=== PATIENT | male | born 1940 | race Caucasian/White ===

== ENCOUNTER 2017-06-27 09:49 | Inpatient (IN) | payer MEDICARE, BC ==
[2017-06-27] MEDS ORDERED: MAGNESIUM SULFATE-D5W PMX 1 GM in DEXTROSE/WATER 1 100ML.BAG IVPB STA (10:10)
[2017-06-27] MEDS ORDERED: IPRATROPIUM-ALBUTEROL 3 ML NEB INHALATION STA (10:10)
[2017-06-27] MEDS ORDERED: methylPREDNISolone SOD SUCCI 125 MG/2 ML VIAL IV STA (10:10)
[2017-06-27] MEDS ORDERED: SODIUM CHLORIDE 0.9% 1,000 ML IV STA (10:10)
--- NOTE | 2017-06-27 10:30 | ED ---
Weakness HPI - General Chief complaint: Weakness Stated complaint: Weakness/SOB Time Seen by Provider: 06/27/17 10:01 Source: patient, family, RN notes reviewed Mode of arrival: wheelchair Limitations: no limitations - History of Present Illness Initial comments: This is a 76-year-old male with a history of vomiting fibrosis who presents with complaints of generalized weakness is been chronic but especially bad over the last week and worse since last night. He has a cough with white phlegm was noted have a fever this morning he had chills no chest pain no nausea vomiting diarrhea he's had a good appetite up until yesterday no food since yesterday. No other modifying factors. He has been taking his medication as directed. MD Complaint: generalized weakness - Related Data Home Medications Medication Instructions Recorded Confirmed Acetaminophen/Diphenhydramine 1 tab PO HS 01/04/15 01/04/15 [Tylenol PM 500-25mg] Amoxicillin/Potassium Clav 1 tab PO Q12HR 01/04/15 01/04/15 [Augmentin 875-125 Tablet] Budesonide [Pulmicort] 0.25 mg INHALATION BID 01/04/15 01/04/15 Carvedilol [Coreg] 12.5 mg PO BID 01/04/15 01/04/15 Ciprofloxacin HCl [Cipro] 500 mg PO Q12HR 01/04/15 01/04/15 Levothyroxine Sodium [Synthroid] 150 mcg PO DAILY 01/04/15 01/04/15 Multivit-Min/FA/Lycopen/Lutein 1 each PO DAILY 01/04/15 01/04/15 [Centrum Silver Tablet] Simvastatin [Zocor] 40 mg PO HS 01/04/15 01/04/15 Tamsulosin [Flomax] 0.4 mg PO DAILY 01/04/15 01/04/15 Testosterone Cypionate 200 mg IM DIRECTED 01/04/15 01/04/15 [Depo-Testosterone] Zinc 50 mg PO DAILY 01/04/15 01/04/15 Previous Rx's Medication Instructions Recorded Ondansetron Odt [Zofran ODT] 4 mg PO Q8HR PRN #15 tab 01/04/15 Allergies Allergy/AdvReac Type Severity Reaction Status Date / Time DILLON Inhibitors Allergy Swelling Verified 06/27/17 10:22 Review of Systems ROS Statement: Those systems with pertinent positive or pertinent negative responses have been documented in the HPI. ROS Other: All systems not noted in ROS Statement are negative. Past Medical History Past Medical History: Asthma, CVA/TIA, Hearing Disorder / Deafness, Hyperlipidemia, Hypertension, Prostate Disorder, Thyroid Disorder Additional Past Medical History / Comment(s): deaf in right ear History of Any Multi-Drug Resistant Organisms: None Reported Past Surgical History: Appendectomy, Back Surgery, Hernia Repair, Orthopedic Surgery, Tonsillectomy Additional Past Surgical History / Comment(s): aortic aneursym repair x2, " leaky valve repair", eyelid surgery, cardiac cath, acoustic neuroma, laminectomy Past Psychological History: No Psychological Hx Reported Smoking Status: Former smoker Past Alcohol Use History: None Reported Past Drug Use History: None Reported General Exam - General Exam Comments Initial Comments: This is a well-developed asthenic appearing male who is awake alert oriented 3 Limitations: no limitations General appearance: alert, in no apparent distress Head exam: Present: atraumatic, normocephalic, normal inspection Eye exam: Present: normal appearance, PERRL, EOMI. Absent: scleral icterus, conjunctival injection, periorbital swelling ENT exam: Present: mucous membranes dry Neck exam: Present: normal inspection. Absent: tenderness, meningismus, lymphadenopathy Respiratory exam: Present: normal lung sounds bilaterally, wheezes, rhonchi, decreased breath sounds. Absent: respiratory distress, rales, stridor Cardiovascular Exam: Present: regular rate, normal rhythm, normal heart sounds. Absent: systolic murmur, diastolic murmur, rubs, gallop, clicks GI/Abdominal exam: Present: soft, normal bowel sounds. Absent: distended, tenderness, guarding, rebound, rigid Extremities exam: Present: normal inspection, full ROM, normal capillary refill. Absent: tenderness, pedal edema, joint swelling, calf tenderness Back exam: Present: normal inspection Neurological exam: Present: alert, oriented X3, CN II-XII intact Psychiatric exam: Present: normal affect, normal mood Skin exam: Present: warm, dry, intact, normal color. Absent: rash Course Vital Signs 06/27/17 06/27/17 06/27/17 09:53 10:30 10:42 Temperature 100.8 F H Pulse Rate 107 H 96 100 Respiratory 20 20 Rate Blood Pressure 143/72 134/81 O2 Sat by Pulse 85 L 91 L Oximetry 06/27/17 06/27/17 10:53 11:38 Temperature Pulse Rate 98 98 Respiratory 16 Rate Blood Pressure 123/79 O2 Sat by Pulse 92 L Oximetry - Reevaluation(s) Reevaluation #1: 06/27/17 12:37 The patient did get some relief after the nebulizer treatment. Reevaluation #2: 06/27/17 12:37 Patient states he has not smoked in 40 years he has not felt febrile at all EKG Findings - EKG Results: EKG: interpreted by ERMD, sinus rhythm (Sinus tachycardia rate of 102 MO interval 140 QRS duration 86 QT since QTC 320/427 left anterior fascicular block and voltage criteria for LVH this is compared with EKG dated 01/04/15.) Medical Decision Making - Medical Decision Making I did discuss findings with the patient and with Dr. Garica. Patient be admitted for further evaluation patient initially did not state he had any chest pain he states he has been having some chest pain. Patient does have elevated troponin of 0.233 evidence of congestive failure with a BNP of 5350 temperature 100.8 of unknown etiology. She will be admitted admitted with cardiology consultation. - Lab Data Result diagrams: 06/27/17 10:00 06/27/17 10:00 Lab Results 06/27/17 06/27/17 06/27/17 Range/Units 10:00 10:00 10:00 WBC 8.0 (3.8-10.6) k/uL RBC 4.32 (4.30-5.90) m/uL Hgb 13.5 (13.0-17.5) gm/dL Hct 40.7 (39.0-53.0) % MCV 94.2 (80.0-100.0) fL MCH 31.3 (25.0-35.0) pg MCHC 33.3 (31.0-37.0) g/dL RDW 17.6 H (11.5-15.5) % Plt Count 56 L (150-450) k/uL Neutrophils % 91 % Lymphocytes % 4 % Monocytes % 3 % Eosinophils % 2 % Basophils % 0 % Neutrophils # 7.3 (1.3-7.7) k/uL Lymphocytes # 0.3 L (1.0-4.8) k/uL Monocytes # 0.2 (0-1.0) k/uL Eosinophils # 0.1 (0-0.7) k/uL Basophils # 0.0 (0-0.2) k/uL Poikilocytosis Slight Anisocytosis Slight PT (9.0-12.0) sec INR (<1.2) APTT (22.0-30.0) sec Sodium 136 L (137-145) mmol/L Potassium 4.3 (3.5-5.1) mmol/L Chloride 101 (98-107) mmol/L Carbon Dioxide 27 (22-30) mmol/L Anion Gap 8 mmol/L BUN 27 H (9-20) mg/dL Creatinine 1.15 (0.66-1.25) mg/dL Est GFR (CKD-EPI)AfAm 73 (>60 ml/min/1.73 sqM) Est GFR (CKD-EPI)NonAf 63 (>60 ml/min/1.73 sqM) Glucose 87 (74-99) mg/dL Plasma Lactic Acid Giles (0.7-2.0) mmol/L Calcium 8.3 L (8.4-10.2) mg/dL Magnesium 1.7 (1.6-2.3) mg/dL Total Bilirubin 0.9 (0.2-1.3) mg/dL AST 64 H (17-59) U/L ALT 33 (21-72) U/L Alkaline Phosphatase 55 (38-126) U/L Total Creatine Kinase <20 L (55-170) U/L CK-MB (CK-2) 0.6 (0.0-2.4) ng/mL CK-MB (CK-2) Rel Index Troponin I 0.233 H* (0.000-0.034) ng/mL NT-Pro-B Natriuret Pep pg/mL Total Protein 5.5 L (6.3-8.2) g/dL Albumin 2.9 L (3.5-5.0) g/dL 06/27/17 06/27/17 06/27/17 Range/Units 10:00 10:00 10:00 WBC (3.8-10.6) k/uL RBC (4.30-5.90) m/uL Hgb (13.0-17.5) gm/dL Hct (39.0-53.0) % MCV (80.0-100.0) fL MCH (25.0-35.0) pg MCHC (31.0-37.0) g/dL RDW (11.5-15.5) % Plt Count (150-450) k/uL Neutrophils % % Lymphocytes % % Monocytes % % Eosinophils % % Basophils % % Neutrophils # (1.3-7.7) k/uL Lymphocytes # (1.0-4.8) k/uL Monocytes # (0-1.0) k/uL Eosinophils # (0-0.7) k/uL Basophils # (0-0.2) k/uL Poikilocytosis Anisocytosis PT 10.3 (9.0-12.0) sec INR 1.1 (<1.2) APTT 23.3 (22.0-30.0) sec Sodium (137-145) mmol/L Potassium (3.5-5.1) mmol/L Chloride (98-107) mmol/L Carbon Dioxide (22-30) mmol/L Anion Gap mmol/L BUN (9-20) mg/dL Creatinine (0.66-1.25) mg/dL Est GFR (CKD-EPI)AfAm (>60 ml/min/1.73 sqM) Est GFR (CKD-EPI)NonAf (>60 ml/min/1.73 sqM) Glucose (74-99) mg/dL Plasma Lactic Acid Giles 1.0 (0.7-2.0) mmol/L Calcium (8.4-10.2) mg/dL Magnesium (1.6-2.3) mg/dL Total Bilirubin (0.2-1.3) mg/dL AST (17-59) U/L ALT (21-72) U/L Alkaline Phosphatase (38-126) U/L Total Creatine Kinase (55-170) U/L CK-MB (CK-2) (0.0-2.4) ng/mL CK-MB (CK-2) Rel Index Troponin I (0.000-0.034) ng/mL NT-Pro-B Natriuret Pep 5350 pg/mL Total Protein (6.3-8.2) g/dL Albumin (3.5-5.0) g/dL - Radiology Data Radiology results: report reviewed (X-ray was reviewed as well as a report evidence of interstitial lung disease and emphysema), image reviewed Critical Care Time Critical Care Time: Yes Critical Care Time: 37 minutes of critical care time which includes initial presentation with history physical labs x-rays several reevaluation patient responsive therapy discuss with the patient regarding findings discussion with the admitting physician admission orders documentation the above as well as review of old charting. Disposition Clinical Impression: Non-ST elevation SC (NSTEMI), Congestive heart failure (CHF), Interstitial lung disease, Hypoxemia, Acute bronchospasm Disposition: ADMITTED IP TO THIS HOSP Condition: Stable Referrals: Malik Tate MD [Primary Care Provider] - 1-2 days
[2017-06-27 10:39] LABS: INR 1.1 (<1.2); Partial Thromboplastin Time 23.3 sec (22.0-30.0); Prothrombin Time 10.3 sec (9.0-12.0)
[2017-06-27 10:40] LABS: Anisocytosis Slight; Basophils % (A) 0 %; Eosinophils # (A) 0.1 k/uL (0-0.7); Eosinophils % (A) 2 %; HCT 40.7 % (39.0-53.0); HGB 13.5 gm/dL (13.0-17.5); Lymphocytes # (A) 0.3 k/uL (1.0-4.8); Lymphocytes % (A) 4 %; MCH 31.3 pg (25.0-35.0); MCHC 33.3 g/dL (31.0-37.0); MCV 94.2 fL (80.0-100.0); Mean Platelet Volume 8.6; Monocytes # (A) 0.2 k/uL (0-1.0); Monocytes % (A) 3 %; Neutrophils # (A) 7.3 k/uL (1.3-7.7); Neutrophils % (A) 91 %; Poikilocytosis Slight; RBC 4.32 m/uL (4.30-5.90); RDW 17.6 % (11.5-15.5)
[2017-06-27 10:42] LABS: Platelet Count 56 k/uL (150-450)
--- NOTE | 2017-06-27 10:42 | XR ---
EXAMINATION TYPE: XR chest 2V DATE OF EXAM: 06/27/2017 COMPARISON: Prior chest x-ray 08/20/2012 HISTORY: Difficulty breathing, dyspnea TECHNIQUE: Frontal and lateral views of the chest are obtained. FINDINGS: There are overlying cardiac leads. Interstitium is increased. Patient is rotated and there is accentuated heart size, stable in appearance. No pneumothorax or pleural effusion evident. Promin ent lung volume compatible with patient's underlying emphysema. Retrocardiac density is compatible wi th patient's hiatal hernia. IMPRESSION: Interstitial lung disease, emphysema.
[2017-06-27 10:46] LABS: Albumin 2.9 g/dL (3.5-5.0); Calcium 8.3 mg/dL (8.4-10.2); Magnesium 1.7 mg/dL (1.6-2.3); Potassium 4.3 mmol/L (3.5-5.1); Total Bilirubin 0.9 mg/dL (0.2-1.3); Total Protein 5.5 g/dL (6.3-8.2)
[2017-06-27 10:53] LABS: Creatine Kinase <20 U/L (55-170)
[2017-06-27 11:06] LABS: Creatine Kinase MB 0.6 ng/mL (0.0-2.4)
[2017-06-27 11:13] LABS: Troponin I 0.233 ng/mL (0.000-0.034)
[2017-06-27] MEDS ORDERED: FUROSEMIDE 10 MG/ML 4 ML VIAL IV STA (11:26)
[2017-06-27] MEDS ORDERED: NITROGLYCERIN SL TABS 0.4 MG TAB SUBLINGUAL PRN (12:40)
[2017-06-27] MEDS ORDERED: HEPARIN SODIUM,PORCINE 5,000 UNIT/ML 1 ML VIAL IV ONE (12:40)
[2017-06-27] MEDS ORDERED: ONDANSETRON ODT 4 MG TAB PO PRN (12:43)
[2017-06-27] MEDS: HEPARIN SODIUM,PORCINE/D5W PMX 25,000 UNIT in DEXTROSE/WATER 1 500ML.BAG IV SCH (13:12)
--- NOTE | 2017-06-27 13:39 | P.HPIM ---
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 The patient reports a history of a chronic cough that is now worse over the last 3 days with increasing shortness of breath, today in particular the patient was increasingly fatigued with exertion. The patient denied any chest pain today but does complain of nonexertional substernal chest discomfort 2-3 days ago which she attributed to acid reflux. The patient reports subjective fevers chills or night sweats, with a productive cough clear phlegm over the last 3 days. The patient denies any recent sick contacts, nor any recent history of smoking. He denies any palpitations or lower extremity swelling, denies presyncope. The patient does have a history of a leaky aortic valve and reports that he had a echocardiogram earlier this week, the results of which are unknown. The patient reports a recent diagnosis of ITP 3 months ago while in [place], requiring multiple transfusions and has been on systemic steroids since that time, he reports recently seeing his extruder operator horizontal Dr. Graham and reports that his prednisone dose was recently decreased to 20 mg by mouth daily. The patient also has a history of aortic graft with a bowel rupture causing peritonitis, he reports the graft was replaced however that he is currently on chronic prophylactic therapy with ciprofloxacin and amoxicillin. In the ER the patient had extensive workup, chest x-ray was consistent with interstitial lung disease and emphysema, with elevated BNP of 5350, and troponin of 0.233, EKG showing sinus rhythm. He was given a dose of Solu-Medrol , Lasix, nebulizer breathing treatments and started on heparin drip and was recommended for admission Past Medical History Past Medical History: Asthma, CVA/TIA, Hearing Disorder / Deafness, Hyperlipidemia, Hypertension, Prostate Disorder, Thyroid Disorder Additional Past Medical History / Comment(s): deaf in right ear History of Any Multi-Drug Resistant Organisms: None Reported Past Surgical History: Appendectomy, Back Surgery, Hernia Repair, Orthopedic Surgery, Tonsillectomy Additional Past Surgical History / Comment(s): aortic aneursym repair x2, " leaky valve repair", eyelid surgery, cardiac cath, acoustic neuroma, laminectomy Past Psychological History: No Psychological Hx Reported Smoking Status: Former smoker Past Alcohol Use History: None Reported Past Drug Use History: None Reported - Past Family History Father Family Medical History: CVA/TIA Sister(s) Family Medical History: Diabetes Mellitus Medications and Allergies Home Medications Medication Instructions Recorded Confirmed Type Amoxicillin/Potassium Clav 1 tab PO Q12HR 01/04/15 06/27/17 History [Augmentin 875-125 Tablet] Carvedilol [Coreg] 12.5 mg PO BID 01/04/15 06/27/17 History Ciprofloxacin HCl [Cipro] 500 mg PO Q12HR 01/04/15 06/27/17 History Levothyroxine Sodium [Synthroid] 150 mcg PO DAILY 01/04/15 06/27/17 History Simvastatin [Zocor] 40 mg PO HS 01/04/15 06/27/17 History Albuterol Sulfate [Proair Hfa] 1 - 2 puff INHALATION RT-Q6H PRN 06/27/17 History DULoxetine HCL [Cymbalta] 30 mg PO DAILY 06/27/17 06/27/17 History RX: predniSONE 20 mg PO DAILY 06/27/17 06/27/17 History Tiotropium [place] [Spiriva 1 puff INHALATION RT-DAILY 06/27/17 06/27/17 History Respimat] Allergies Allergy/AdvReac Type Severity Reaction Status Date / Time DILLON Inhibitors Allergy Swelling Verified 06/27/17 13:23 Physical Exam Vitals: Vital Signs Temp Pulse Resp BP Pulse Ox 06/27/17 12:50 99.2 F 90 18 126/76 92 L 06/27/17 11:38 98 16 123/79 92 L 06/27/17 10:53 98 06/27/17 10:42 100 06/27/17 10:30 96 20 134/81 91 L 06/27/17 09:53 100.8 F H 107 H 20 143/72 85 L Intake and Output 06/26/17 06/27/17 06/27/17 22:59 06:59 14:59 Output Total 675 Balance -675 Output: Urine 675 Other: Weight 63.503 kg Constitutional: No acute distress, conversant, pleasant Eyes: Anicteric sclerae, moist conjunctiva, no lid-lag, PERRLA ENMT: NC/AT,Oropharynx clear, no erythema, exudates Neck:Supple, FROM, no masses, or JVD, No carotid bruits; No thyromegaly Lungs: Bibasilar crackles, Clear to percussion, Normal respiratory effort, no accessory muscle use Cardiovascular: Heart regular in rate and rhythm, No murmurs, gallops, or rubs no peripheral edema Abdominal: Soft Nontender, nom distended, no guarding, no rebound or rigidity, Normoactive bowel sounds No hepatomegaly, No splenomegaly, No palpable mass No abdominal wall hernia noted Skin: Normal temperature, tone, texture, turgor, No induration No subcutaneous nodules, No rash, lesions, No ulcers Extremities:No digital cyanosis No clubbing, Pedal pulses intact and symmetrical Radial pulses intact and symmetrical Normal gait and station, No calf tenderness Psychiatric: Alert and oriented to person, place and time, Appropriate affect Intact judgement Neuro: Muscles Strength 5/5 in all 4 extremities, Sensation to light touch grossly present throughout, Cranial nerves II-XII grossly intact. No focal sensory deficits Results CBC & Chem 7: 06/27/17 10:00 06/27/17 10:00 Labs: Abnormal Lab Results - Last 24 Hours (Table) 06/27/17 06/27/17 06/27/17 Range/Units 10:00 10:00 10:00 RDW 17.6 H (11.5-15.5) % Plt Count 56 L (150-450) k/uL Lymphocytes # 0.3 L (1.0-4.8) k/uL D-Dimer (<0.60) mg/L FEU Sodium 136 L (137-145) mmol/L BUN 27 H (9-20) mg/dL Calcium 8.3 L (8.4-10.2) mg/dL AST 64 H (17-59) U/L Total Creatine Kinase <20 L (55-170) U/L Troponin I 0.233 H* (0.000-0.034) ng/mL Total Protein 5.5 L (6.3-8.2) g/dL Albumin 2.9 L (3.5-5.0) g/dL 06/27/17 Range/Units 10:00 RDW (11.5-15.5) % Plt Count (150-450) k/uL Lymphocytes # (1.0-4.8) k/uL D-Dimer 4.31 H (<0.60) mg/L FEU Sodium (137-145) mmol/L BUN (9-20) mg/dL Calcium (8.4-10.2) mg/dL AST (17-59) U/L Total Creatine Kinase (55-170) U/L Troponin I (0.000-0.034) ng/mL Total Protein (6.3-8.2) g/dL Albumin (3.5-5.0) g/dL Assessment and Plan Assessment: Chronic medical issues (1) Elevated troponin Current Visit: Yes Status: Acute Code(s): R74.8 - ABNORMAL LEVELS OF OTHER SERUM ENZYMES SNOMED Code(s): 762712085 (2) Dyspnea on exertion Current Visit: Yes Status: Acute Code(s): R06.09 - OTHER FORMS OF DYSPNEA SNOMED Code(s): 67973429 (3) Elevated brain natriuretic peptide (BNP) level Current Visit: Yes Status: Acute Code(s): R79.89 - OTHER SPECIFIED ABNORMAL FINDINGS OF BLOOD CHEMISTRY SNOMED Code(s): 335475637 (4) Interstitial lung disease Current Visit: Yes Status: Acute Code(s): J84.9 - INTERSTITIAL PULMONARY DISEASE, UNSPECIFIED SNOMED Code(s): 898181967 (5) COPD with emphysema Current Visit: Yes Status: Acute Code(s): J43.9 - EMPHYSEMA, UNSPECIFIED SNOMED Code(s): 61073041 (6) History of ITP Current Visit: Yes Status: Acute Code(s): Z86.2 - PRSNL HISTORY OF DIS [facility] Code(s): 756222738 Plan: The patient is admitted to the telemetry unit on 6 selective after presenting with progressive dyspnea and shortness of breath, possibly secondary to underlying CHF, patient does have a history of aortic valvulopathy and does have elevated initial troponin. Concern for underlying coronary artery disease , we'll continue to trend his troponins, will order echocardiogram, continue heparin drip initiated in the ED And consult cardiology. Patient does have a low-grade temperature without a focus of infection, will order a urinalysis and blood culture and consult ID for further recommendations given the patient's complicated history of chronic steroid therapy and ongoing prophylactic antibiotic use. We'll also consult pulmonary for further recommendations regarding the patient's interstitial lung disease and emphysema. Continue breathing treatments, Lasix IV and oral prednisone, D-dimer is been ordered and if elevated we'll order a CTA of the chest to rule out PE. We'll continue to follow the patient's clinical course
[2017-06-27] MEDS ORDERED: RX INFO: IV CONTRAST WAS GIVEN 1 EACH MISC MISCELLANE PRN (14:00)
[2017-06-27] MEDS ORDERED: IPRATROPIUM-ALBUTEROL 3 ML NEB INHALATION PRN (14:04)
[2017-06-27 14:16] LABS: Appearance,Urine Clear (Clear); Bilirubin,Urine Negative (Negative); Blood,Urine Negative (Negative); Color,Urine Colorless; Glucose,Urine (UA) Negative (Negative); Ketones,Urine Negative (Negative); Leukocyte Esterase,Urine Negative (Negative); Nitrite,Urine Negative (Negative); Protein,Urine Negative (Negative); Specific Gravity,Urine 1.004 (1.001-1.035); Urobilinogen,Urine <2.0 mg/dL (<2.0)
--- NOTE | 2017-06-27 15:28 | CT ---
EXAMINATION TYPE: CT chest angio for PE DATE OF EXAM: 06/27/2017 COMPARISON: Chest x-ray 06/27/2017 HISTORY: Shortness of breath and chest pain CT DLP: 606 mGycm Automated exposure control for dose reduction was used. CONTRAST: CT Chest for pulmonary embolism performed with with IV Contrast, patient injected with 100 mL of Isov ue 370. FINDINGS: LUNGS: The lungs are remarkable for extensive emphysematous changes, interstitial changes are also no darius with thickening of interlobular septal bands, some pleural honeycombing, thickened parenchymal ba nds. Partial intrathoracic stomach is present. The heart is enlarged. There coronary artery calcifica tions. Calcified granuloma present left lower lobe suspected. There is no pleural effusion or pneum othorax seen. The tracheobronchial tree is patent. MEDIASTINUM: There is satisfactory enhancement of the pulmonary artery and its branches, there is no CT evidence for pulmonary embolism. Pulmonary artery is dilated. There are no greater than 1 cm hilar or mediastinal lymph nodes. No pericardial effusion is seen. AORTA: Ascending aorta is aneurysmal measuring 4.6 cm. No evident dissection. Reflux of contrast note d into the inferior vena cava. Abdominal aorta is aneurysmal measuring 4.6 cm at the level of the slime al arteries. Descending thoracic aorta 3.4 cm. Limited contrast evaluation of the aorta due to timing of the exam. OTHER: Dependent hyperdensity within the gallbladder compatible with stones. Incidental note made of atrophic left kidney. IMPRESSION: Emphysema, end-stage lung disease, interstitial lung disease. Cardiomegaly and coronary artery diseas e.. Aortic aneurysm. Atrophic left kidney. Cholelithiasis. No evident pulmonary embolism. Correlate f or pulmonary artery hypertension. Additional findings above.
[2017-06-27] MEDS: IPRATROPIUM-ALBUTEROL 3 ML NEB INHALATION SCH ×2 (15:52→20:04)
--- NOTE | 2017-06-27 16:45 | ECHOF ---
Referral Reason:Non-STEMI, CHF MEASUREMENTS -------- HEIGHT: 152.4 cm WEIGHT: 63.5 kg BP: IVSd: 1.6 cm (0.6 - 1.1) LVIDd: 4.1 cm (3.9 - 5.3) LVPWd: 1.8 cm (0.6 - 1.1) IVSs: 1.9 cm LVIDs: 3.9 cm LVPWs: 1.8 cm Ao Diam: 4.7 cm (2.0 - 3.7) AV Cusp: 2.3 cm (1.5 - 2.6) MV EXCURSION: 8.330 mm (> 18.000) MV EF SLOPE: 109 mm/s (70 - 150) EPSS: 1.1 cm MV E Dorian: 0.53 m/s MV DecT: 223 ms MV A Dorian: 0.91 m/s MV E/A Ratio: 0.58 AR PHT: 358 ms RAP: 5.00 mmHg RVSP: 63.74 mmHg FINDINGS -------- Sinus rhythm. This was a technically adequate study. The left ventricular size is normal. There is moderate concentric left ventricular hypertrophy. O verall left ventricular systolic function is low-normal with, an EF between 50 - 55 %. The right ventricle is normal in size. The left atrial size is normal. The right atrial size is normal. There is mild aortic valve sclerosis. There is moderate aortic regurgitation. Mild mitral annular calcification present. Mild mitral regurgitation is present. Mild tricuspid regurgitation present. There is moderate pulmonary hypertension. The right ventric ular systolic pressure, as measured by Doppler, is 63.74mmHg. There is no pulmonic regurgitation present. Aortic Root is Dilated and measures 4.7cm. There is no pericardial effusion. CONCLUSIONS -------- 1. The left ventricular size is normal. 2. There is moderate concentric left ventricular hypertrophy. 3. Overall left ventricular systolic function is low-normal with, an EF between 50 - 55 %. 4. The right ventricle is normal in size. 5. There is mild aortic valve sclerosis. 6. There is moderate aortic regurgitation. 7. Mild mitral annular calcification present. 8. Mild mitral regurgitation is present. 9. Mild tricuspid regurgitation present. 10. There is moderate pulmonary hypertension. 11. The right ventricular systolic pressure, as measured by Doppler, is 63.74mmHg. 12. There is no pulmonic regurgitation present. 13. Aortic Root is Dilated and measures 4.7cm. 14. There is no pericardial effusion. HOG GRADER: Fabiola Serrano RDCS
[2017-06-27 16:46] LABS: Creatine Kinase MB 0.6 ng/mL (0.0-2.4)
[2017-06-27 16:51] LABS: Troponin I 0.228 ng/mL (0.000-0.034)
[2017-06-27] MEDS: NITROGLYCERIN OINT 1 INCH/GM PACKET TOPICAL SCH ×2 (17:07→23:05)
[2017-06-27] MEDS: CARVEDILOL 12.5 MG TAB PO SCH (17:07)
--- NOTE | 2017-06-27 18:13 | P.CONS ---
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 He has a known history of aortic valve insufficiency and known history of abdominal aortic aneurysm. The patient has a distant history regarding his aneurysm that several years ago he developed a significant intra-abdominal abscess related to the aortic graft resulting in colonic perforation and intra-abdominal abscess. He was treated outside hospital where he underwent replacement of his graft after the intranodal abscess in colonic perforation were treated. He relates the new graft was antibiotic laden and he's been on chronic antibiotic suppressive therapy with ciprofloxacin and amoxicillin as per the physician he follows through [place]. 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 He relates his ITP is been under good control and has had some decrease of his prednisone as of late 120 mg a day. The patient was last few days has been feeling considerably weak. He's had a similar event in the past when he was out hunting and couldn't move around. This emesis consisted of a more short of breath not having much cough but profound weakness in counseling presents to Hospital. The emergency room workup revealed evidence of an elevated BNP of 5350 troponins were elevated. He has been treated with Solu-Medrol IV, diuretic therapy with Lasix breathing treatments and heparin drip was initiated. Because of his history of the graft and chronic antibiotic therapy the infectious diseases consultation was requested. The patient denies it is been having fevers or chills at home. He's had no difficulty with antibiotic therapy. He relates since his prednisone dose has been decreased he has not had difficulties with bleeding and did not know if his platelets had markedly changed since the recent dosing change of his immunosuppressive. Review of Systems HEENT:Denies headache or acute visual change. Denies sinus or mouth discomforts. Denies neck stiffness or pain. Denies significant oral cavity pain. Denies difficulty on swallowing. Lungs: Patient is very short of breath with any activity, is having cough without sputum production no hemoptysis Cardiovascular: Profound short of breath is not having chest pain has dyspnea on exertion he does have orthopnea but not PND denies syncope Gastrointestinal:Denies nausea, vomiting, diarrhea, constipation, hematemesis, melena, hematochezia. No no significant change of bowel habit noticed. Musculoskeletal: denies significant myalgias or arthralgias. No new joint swelling. Denies new back pain. Skin: Denies new rash or lesions. No new ulcers or wounds are related.. Neuro: Denies headache or visual change. Denies any new onset weakness or difficulty with ambulation. Denies falls or seizures. Psychiatric:Denies anxiety or depression. Endocrine:Profound fatigue unclear if his weight has changed Past Medical History Past Medical History: Asthma, CVA/TIA, Hearing Disorder / Deafness, Hyperlipidemia, Hypertension, Prostate Disorder, Thyroid Disorder Additional Past Medical History / Comment(s): deaf in right ear History of Any Multi-Drug Resistant Organisms: None Reported Past Surgical History: Appendectomy, Back Surgery, Hernia Repair, Orthopedic Surgery, Tonsillectomy Additional Past Surgical History / Comment(s): aortic aneursym repair x2, " leaky valve repair", eyelid surgery, cardiac cath, acoustic neuroma, laminectomy Past Anesthesia/Blood Transfusion Reactions: No Reported Reaction Past Psychological History: No Psychological Hx Reported Additional Psychological History / Comment(s): and lives with family home with his . They winter in [place]. Was in the [employer] [employer], stationed in the [employer] [facility]. Tobacco smoker but stopped many years ago denies current alcohol use. No international travel. Pet dog at home Smoking Status: Former smoker Past Alcohol Use History: None Reported Past Drug Use History: None Reported - Past Family History Father Family Medical History: CVA/TIA Sister(s) Family Medical History: Diabetes Mellitus Medications and Allergies Home Medications and Allergies Comment(s): Current Medications Acetaminophen (Tylenol Tab) 500 mg PO HS [facility] Albuterol/Ipratropium (Duoneb 0.5 Mg-3 Mg/3 Ml Soln) 3 ml INHALATION RT-Q4H [facility] Last Admin: 06/27/17 15:52 Dose: 3 ml Albuterol/Ipratropium (Duoneb 0.5 Mg-3 Mg/3 Ml Soln) 3 ml INHALATION RT-QID PRN PRN Reason: Shortness Of Breath Or Wheezing Aspirin (Aspirin) 325 mg PO DAILY [facility] Atorvastatin Calcium (Lipitor) 20 mg PO HS [facility] Carvedilol (Coreg) 12.5 mg PO AC-BID [facility] Last Admin: 06/27/17 17:07 Dose: 12.5 mg Ciprofloxacin (Cipro) 500 mg PO Q12HR [facility] Diphenhydramine HCl (Benadryl) 25 mg PO HS [facility] Sodium Chloride (Saline 0.9%) 1,000 mls @ 75 mls/hr IV .[id number] STA Stop: 06/27/17 23:29 Last Admin: 06/27/17 10:51 Dose: 75 mls/hr Heparin Sodium/Dextrose 25,000 (unit/ IV Solution) 500 mls @ 15.24 mls/hr IV .Q24H ZOE; 12 UNITS/KG/HR PRN Reason: Protocol Last Admin: 06/27/17 13:12 Dose: 12 units/kg/hr, 15.24 mls/hr Levothyroxine Sodium (Synthroid) 150 mcg PO 0630 [facility] Miscellaneous Information (Rx Info: Iv Contrast Was Given) 1 each MISCELLANE DAILY PRN PRN Reason: Per Protocol Stop: 06/29/17 14:01 Multivitamins (Theragran) 1 each PO 1200 [facility] Nitroglycerin (Nitro-Bid Oint) 1 inch TOPICAL Q6HR [facility] Last Admin: 06/27/17 17:07 Dose: 1 inch Nitroglycerin (Nitrostat) 0.4 mg SUBLINGUAL Q5M PRN PRN Reason: Chest Pain Ondansetron HCl (Zofran Odt) 4 mg PO Q8HR PRN PRN Reason: Nausea Tamsulosin HCl (Flomax) 0.4 mg PO DAILY [facility] Home Medications Medication Instructions Recorded Confirmed Type Amoxicillin/Potassium Clav 1 tab PO Q12HR 01/04/15 06/27/17 History [Augmentin 875-125 Tablet] Carvedilol [Coreg] 12.5 mg PO BID 01/04/15 06/27/17 History Ciprofloxacin HCl [Cipro] 500 mg PO Q12HR 01/04/15 06/27/17 History Levothyroxine Sodium [Synthroid] 150 mcg PO DAILY 01/04/15 06/27/17 History Simvastatin [Zocor] 40 mg PO HS 01/04/15 06/27/17 History Albuterol Sulfate [Proair Hfa] 1 - 2 puff INHALATION RT-Q6H PRN 06/27/17 History DULoxetine HCL [Cymbalta] 30 mg PO DAILY 06/27/17 06/27/17 History Tiotropium Homer [Spiriva 1 puff INHALATION RT-DAILY 06/27/17 06/27/17 History Respimat] predniSONE 20 mg PO DAILY 06/27/17 06/27/17 History Allergies Allergy/AdvReac Type Severity Reaction Status Date / Time DILLON Inhibitors Allergy Swelling Verified 06/27/17 13:23 Physical Exam Vitals: Vital Signs Temp Pulse Pulse Resp BP BP Pulse Ox 06/27/17 16:08 92 06/27/17 15:53 92 96 06/27/17 15:30 98.3 F 76 18 108/69 97 06/27/17 14:10 99.5 F 89 18 122/86 94 L 06/27/17 12:50 99.2 F 90 18 126/76 92 L 06/27/17 11:38 98 16 123/79 92 L 06/27/17 10:53 98 06/27/17 10:42 100 06/27/17 10:30 96 20 134/81 91 L 06/27/17 09:53 100.8 F H 107 H 20 143/72 85 L Intake and Output 06/27/17 06/27/17 06/27/17 06:59 14:59 22:59 Intake Total 90 Output Total 675 500 Balance -675 -410 Intake: Oral 90 Output: Urine 675 500 Other: Voiding Method Urinal Weight 63.503 kg 71.9 kg Pleasant 76-year-old male of a thin build who is not in ramona distress at this time, however he is at rest, relates that he gets very short of breath he tries to stand up and get to the chair. He does have oxygen in place. HEENT: Anicteric conjunctiva are pink and moist nasal mucosa grossly intact without significant lesions, there is no thrush.Extensive parietal dental work Neck: The neck is supple without significant lymphadenopathy or thyromegaly. Lungs: Symmetrical air entry is noted, basal crackles are heard, expiratory wheezes are scattered, no sticking bronchial sounds or dullness is noted no egophony. Heart: Irregular with an audible S1 and S2 positive S4 2/6 systolic murmur easily heard right sternal border have only trace edema Abdomen: Positive bowel sounds soft and nontender without palpable masses or organomegaly. There was no guarding or rebound. Extremities: The upper extremities have excellent pulses they are symmetric, no significant petechiae or telangiectasia. No splinter hemorrhages were noted. The lower extremities are free from significant edema. The peripheral pulses were 2+ and symmetric. Neuro: Awake alert oriented to person place and time. There are no acute new gross focal sensory motor deficits. Results CBC & Chem 7: 06/27/17 10:00 06/27/17 10:00 Labs: Abnormal Lab Results - Last 24 Hours (Table) 06/27/17 06/27/17 06/27/17 Range/Units 10:00 10:00 10:00 RDW 17.6 H (11.5-15.5) % Plt Count 56 L (150-450) k/uL Lymphocytes # 0.3 L (1.0-4.8) k/uL D-Dimer (<0.60) mg/L FEU Sodium 136 L (137-145) mmol/L BUN 27 H (9-20) mg/dL Calcium 8.3 L (8.4-10.2) mg/dL AST 64 H (17-59) U/L Total Creatine Kinase <20 L (55-170) U/L Troponin I 0.233 H* (0.000-0.034) ng/mL Total Protein 5.5 L (6.3-8.2) g/dL Albumin 2.9 L (3.5-5.0) g/dL 06/27/17 06/27/17 Range/Units 10:00 15:58 RDW (11.5-15.5) % Plt Count (150-450) k/uL Lymphocytes # (1.0-4.8) k/uL D-Dimer 4.31 H (<0.60) mg/L FEU Sodium (137-145) mmol/L BUN (9-20) mg/dL Calcium (8.4-10.2) mg/dL AST (17-59) U/L Total Creatine Kinase 20 L (55-170) U/L Troponin I 0.228 H* (0.000-0.034) ng/mL Total Protein (6.3-8.2) g/dL Albumin (3.5-5.0) g/dL Laboratory Results WBC 8.0 k/uL (3.8-10.6) 06/27/17 10:00 RBC 4.32 m/uL (4.30-5.90) 06/27/17 10:00 Hgb 13.5 gm/dL (13.0-17.5) 06/27/17 10:00 Hct 40.7 % (39.0-53.0) 06/27/17 10:00 MCV 94.2 fL (80.0-100.0) 06/27/17 10:00 MCH 31.3 pg (25.0-35.0) 06/27/17 10:00 MCHC 33.3 g/dL (31.0-37.0) 06/27/17 10:00 RDW 17.6 % (11.5-15.5) H 06/27/17 10:00 Plt Count 56 k/uL (150-450) L 06/27/17 10:00 Neutrophils % 91 % 06/27/17 10:00 Lymphocytes % 4 % 06/27/17 10:00 Monocytes % 3 % 06/27/17 10:00 Eosinophils % 2 % 06/27/17 10:00 Basophils % 0 % 06/27/17 10:00 Neutrophils # 7.3 k/uL (1.3-7.7) 06/27/17 10:00 Lymphocytes # 0.3 k/uL (1.0-4.8) L 06/27/17 10:00 Monocytes # 0.2 k/uL (0-1.0) 06/27/17 10:00 Eosinophils # 0.1 k/uL (0-0.7) 06/27/17 10:00 Basophils # 0.0 k/uL (0-0.2) 06/27/17 10:00 Poikilocytosis Slight 06/27/17 10:00 Anisocytosis Slight 06/27/17 10:00 PT 10.3 sec (9.0-12.0) 06/27/17 10:00 INR 1.1 (<1.2) 06/27/17 10:00 APTT 23.3 sec (22.0-30.0) 06/27/17 10:00 D-Dimer 4.31 mg/L FEU (<0.60) H 06/27/17 10:00 Sodium 136 mmol/L (137-145) L 06/27/17 10:00 Potassium 4.3 mmol/L (3.5-5.1) 06/27/17 10:00 Chloride 101 mmol/L (98-107) 06/27/17 10:00 Carbon Dioxide 27 mmol/L (22-30) 06/27/17 10:00 Anion Gap 8 mmol/L 06/27/17 10:00 BUN 27 mg/dL (9-20) H 06/27/17 10:00 Creatinine 1.15 mg/dL (0.66-1.25) 06/27/17 10:00 Est GFR (CKD-EPI)AfAm 73 (>60 ml/min/1.73 sqM) 06/27/17 10:00 Est GFR (CKD-EPI)NonAf 63 (>60 ml/min/1.73 sqM) 06/27/17 10:00 Glucose 87 mg/dL (74-99) 06/27/17 10:00 Plasma Lactic Acid Giles 1.0 mmol/L (0.7-2.0) 06/27/17 10:00 Calcium 8.3 mg/dL (8.4-10.2) L 06/27/17 10:00 Magnesium 1.7 mg/dL (1.6-2.3) 06/27/17 10:00 Total Bilirubin 0.9 mg/dL (0.2-1.3) 06/27/17 10:00 AST 64 U/L (17-59) H 06/27/17 10:00 ALT 33 U/L (21-72) 06/27/17 10:00 Alkaline Phosphatase 55 U/L (38-126) 06/27/17 10:00 Total Creatine Kinase 20 U/L (55-170) L 06/27/17 15:58 CK-MB (CK-2) 0.6 ng/mL (0.0-2.4) 06/27/17 15:58 CK-MB (CK-2) Rel Index 3.0 06/27/17 15:58 Troponin I 0.228 ng/mL (0.000-0.034) H* 06/27/17 15:58 NT-Pro-B Natriuret Pep 5350 pg/mL 06/27/17 10:00 Total Protein 5.5 g/dL (6.3-8.2) L 06/27/17 10:00 Albumin 2.9 g/dL (3.5-5.0) L 06/27/17 10:00 Urine Color Colorless 06/27/17 14:00 Urine Appearance Clear (Clear) 06/27/17 14:00 Urine pH 7.0 (5.0-8.0) 06/27/17 14:00 Ur Specific Chazy 1.004 (1.001-1.035) 06/27/17 14:00 Urine Protein Negative (Negative) 06/27/17 14:00 Urine Glucose (UA) Negative (Negative) 06/27/17 14:00 Urine Ketones Negative (Negative) 06/27/17 14:00 Urine Blood Negative (Negative) 06/27/17 14:00 Urine Nitrite Negative (Negative) 06/27/17 14:00 Urine Bilirubin Negative (Negative) 06/27/17 14:00 Urine Urobilinogen <2.0 mg/dL (<2.0) 06/27/17 14:00 Ur Leukocyte Esterase Negative (Negative) 06/27/17 14:00 Chest x-ray: report reviewed CT scan - chest: report reviewed (Pulmonary fibrosis with likely pulmonary hypertension without acute infiltrate extensive emphysema) Assessment and Plan (1) Elevated brain natriuretic peptide (BNP) level Current Visit: Yes Status: Acute Code(s): R79.89 - OTHER SPECIFIED ABNORMAL FINDINGS OF BLOOD CHEMISTRY SNOMED Code(s): 027759156 (2) Right-sided heart failure Current Visit: Yes Status: Acute Code(s): I50.810 - RIGHT HEART FAILURE, UNSPECIFIED SNOMED Code(s): 324704637 (3) History of ITP Current Visit: Yes Status: Acute Code(s): Z86.2 - PRSNL HISTORY OF DIS OF THE BLD/BLD-FORM ORG/IMMUN [facility] SNOMED Code(s): 641996408 (4) Complication of aortic graft Narrative/Plan: Very pleasant 76-year-old male presents to Hospital significant shortness of breath and increasing weakness over the 2-3 days before coming to hospital. He thought maybe is having some reflux but realized that he was feeling much more poorly he was having some difficulties with some sputum production But it was not changed in its color. His shortness of breath was markedly worsened and constantly presented to Hospital. As noted he has significant underlying comorbidities that include history of aortic insufficiency and underlying cardiac disease. He does have ITP and his steroid doses have been recently decreased. Would consider stress dose of hydrocortisone with the current situation. The patient does have a history of the great difficulties with the aortobifemoral graft that had to be replaced if the time of an extensive abdominal surgery and has been on chronic suppressive antibiotic therapy since that time. He follows at [place] and relates that he is on ciprofloxacin and amoxicillin lifelong. These will be continued during this stay. It appears the patient is having difficulty with right-sided heart failure and is being treated for this with some improvement. As far as his ITP as per the count appears to be adequate this time and he has no evidence of bleeding. Cardiology intervention is in process with concerns with the elevated troponins to underlying cardiac event also precipitating the current series of events. Current Visit: Yes Status: Acute Code(s): T82.9XXA - UNSP COMP OF CARDIAC AND VASCULAR PROSTH DEV/GRFT, INIT SNOMED Code(s): 272238602
[2017-06-27] MEDS: ATORVASTATIN 20 MG TAB PO SCH (20:10)
[2017-06-27] MEDS: CIPROFLOXACIN HCL 500 MG TAB PO SCH (20:10)
[2017-06-27] MEDS: AMOXICILLIN 875 MG TAB PO SCH (20:11)
[2017-06-27 22:37] LABS: Creatine Kinase <20 U/L (55-170)
[2017-06-27 22:49] LABS: Creatine Kinase MB 0.7 ng/mL (0.0-2.4)
[2017-06-27 22:50] LABS: Troponin I 0.114 ng/mL (0.000-0.034)
[2017-06-27] MEDS: ACETAMINOPHEN TAB 500 MG TAB PO SCH (23:03)
[2017-06-27] MEDS: diphenhydrAMINE 25 MG CAP PO SCH (23:03)
[2017-06-28] MEDS: IPRATROPIUM-ALBUTEROL 3 ML NEB INHALATION SCH ×6 (00:05→19:58)
[2017-06-28 03:45] LABS: Cholesterol 132 mg/dL (<200); HDL Cholesterol 52 mg/dL (40-60); LDL Cholesterol,Calculated 67 mg/dL (0-99); Triglycerides 67 mg/dL (<150)
[2017-06-28] MEDS: CARVEDILOL 12.5 MG TAB PO SCH ×2 (06:34→18:14)
[2017-06-28] MEDS: NITROGLYCERIN OINT 1 INCH/GM PACKET TOPICAL SCH ×4 (06:34→23:24)
[2017-06-28] MEDS: LEVOTHYROXINE 75 MCG TAB PO SCH (06:34)
[2017-06-28] MEDS ORDERED: NON-FORMULARY DRUG (Zinc [Zinc] 50 MG) PO SCH (09:00)
--- NOTE | 2017-06-28 10:05 | P.PN ---
Subjective Progress Note Date: 06/28/17 Patient complaint of chest congestion and coughing but nonproductive, still short of breath and dyspneic. Patient has been afebrile since admission with No acute events overnight Objective - Vital Signs Vital signs: Vital Signs Temp 98.0 F 06/28/17 03:56 Pulse 76 06/28/17 08:47 Resp 18 06/28/17 03:56 BP 106/60 06/28/17 03:56 Pulse Ox 95 06/28/17 03:56 Intake & Output 06/27/17 06/28/17 06/28/17 18:59 06:59 18:59 Intake Total 330 484.779 360 Output Total 1175 450 Balance -845 34.779 360 Weight 71.9 kg 71.8 kg Intake: Intake, IV Titration 359.779 Amount Heparin Sodium,Porcine/ 259.779 D5w Pmx 25,000 unit In Dextrose/Water 1 500ml. bag @ 12 UNITS/KG/HR 15. 24 mls/hr IV .Q24H ZOE Rx #:[id number] Sodium Chloride 0.9% 1, 100 000 ml @ 75 mls/hr IV . [id number] STA Rx#:[id number] Oral 330 125 360 Output: Urine 1175 450 Other: Voiding Method Urinal Urinal # Voids 2 - Exam Constitutional: No acute distress, conversant, pleasant Eyes: Anicteric sclerae, moist conjunctiva, no lid-lag, PERRLA ENMT: NC/AT,Oropharynx clear, no erythema, exudates Neck:Supple, FROM, no masses, or JVD, No carotid bruits; No thyromegaly Lungs: Bibasilar crackles Clear to percussion, Normal respiratory effort, no accessory muscle use Cardiovascular: Heart regular in rate and rhythm, No murmurs, gallops, or rubs no peripheral edema Abdominal: Soft Nontender, nom distended, no guarding, no rebound or rigidity, Normoactive bowel sounds No hepatomegaly, No splenomegaly, No palpable mass No abdominal wall hernia noted Skin: Normal temperature, tone, texture, turgor, No induration No subcutaneous nodules, No rash, lesions, No ulcers Extremities:No digital cyanosis No clubbing, Pedal pulses intact and symmetrical Radial pulses intact and symmetrical Normal gait and station, No calf tenderness Psychiatric: Alert and oriented to person, place and time, Appropriate affect Intact judgement Neuro: Muscles Strength 5/5 in all 4 extremities, Sensation to light touch grossly present throughout, Cranial nerves II-XII grossly intact. No focal sensory deficits - Labs CBC & Chem 7: 06/27/17 10:00 06/27/17 10:00 Labs: Abnormal Lab Results - Last 24 Hours (Table) 06/27/17 06/27/17 06/27/17 Range/Units 10:00 10:00 10:00 RDW 17.6 H (11.5-15.5) % Plt Count 56 L (150-450) k/uL Lymphocytes # 0.3 L (1.0-4.8) k/uL APTT (22.0-30.0) sec D-Dimer (<0.60) mg/L FEU Sodium 136 L (137-145) mmol/L BUN 27 H (9-20) mg/dL Calcium 8.3 L (8.4-10.2) mg/dL AST 64 H (17-59) U/L Total Creatine Kinase <20 L (55-170) U/L Troponin I 0.233 H* (0.000-0.034) ng/mL Total Protein 5.5 L (6.3-8.2) g/dL Albumin 2.9 L (3.5-5.0) g/dL 06/27/17 06/27/17 06/27/17 Range/Units 10:00 15:58 19:12 RDW (11.5-15.5) % Plt Count (150-450) k/uL Lymphocytes # (1.0-4.8) k/uL APTT 34.3 H (22.0-30.0) sec D-Dimer 4.31 H (<0.60) mg/L FEU Sodium (137-145) mmol/L BUN (9-20) mg/dL Calcium (8.4-10.2) mg/dL AST (17-59) U/L Total Creatine Kinase 20 L (55-170) U/L Troponin I 0.228 H* (0.000-0.034) ng/mL Total Protein (6.3-8.2) g/dL Albumin (3.5-5.0) g/dL 06/27/17 06/28/17 Range/Units 21:54 02:27 RDW (11.5-15.5) % Plt Count (150-450) k/uL Lymphocytes # (1.0-4.8) k/uL APTT 45.0 H (22.0-30.0) sec D-Dimer (<0.60) mg/L FEU Sodium (137-145) mmol/L BUN (9-20) mg/dL Calcium (8.4-10.2) mg/dL AST (17-59) U/L Total Creatine Kinase <20 L (55-170) U/L Troponin I 0.114 H* (0.000-0.034) ng/mL Total Protein (6.3-8.2) g/dL Albumin (3.5-5.0) g/dL Assessment and Plan Assessment: Chronic conditions Chronic prophylactic antibiotic therapy with amoxicillin and ciprofloxacin (1) Right-sided heart failure Narrative/Plan: * Right sided heart failure exacerbation, with pulmonary artery hypertension seen on echocardiogram with normal ejection fraction of 50-55% * CTA of the chest negative for PE, consistent with pulmonary hypertension along with end-stage lung disease COPD and interstitial lung disease * Hypervolemic lung exam will initiated Lasix 40 mg IV twice a day * Awaiting cardiology recommendations Current Visit: Yes Status: Acute Code(s): I50.810 - RIGHT HEART FAILURE, UNSPECIFIED SNOMED Code(s): 710401408 (2) Elevated troponin Narrative/Plan: * Likely stage II non-ST elevation LA secondary to demand ischemia * Cardiac enzymes trending down, currently on heparin IV * Awaiting cardiology recommendations Current Visit: Yes Status: Acute Code(s): R74.8 - ABNORMAL LEVELS OF OTHER SERUM ENZYMES SNOMED Code(s): 650051337 (3) Dyspnea on exertion Narrative/Plan: * We'll continue with supplemental oxygen and continue to monitor * Multifactorial secondary to right-sided heart failure superimposed on end- stage lung disease, ILD and COPD with emphysema * Awaiting pulmonary recommendations Current Visit: Yes Status: Acute Code(s): R06.09 - OTHER FORMS OF DYSPNEA SNOMED Code(s): 69910509 (4) Interstitial lung disease Current Visit: Yes Status: Acute Code(s): J84.9 - INTERSTITIAL PULMONARY DISEASE, UNSPECIFIED SNOMED Code(s): 400684564 (5) COPD with emphysema Current Visit: Yes Status: Acute Code(s): J43.9 - EMPHYSEMA, UNSPECIFIED SNOMED Code(s): 04884639 (6) Pulmonary hypertension Current Visit: Yes Status: Acute Code(s): I27.20 - PULMONARY HYPERTENSION, UNSPECIFIED SNOMED Code(s): 60886533 (7) History of ITP Narrative/Plan: * Resume prednisone 20 mg by mouth daily Current Visit: Yes Status: Acute Code(s): Z86.2 - PRSNL HISTORY OF DIS OF THE BLD/BLD-FORM ORG/IMMUN [facility] SNOMED Code(s): 990280516
[2017-06-28] MEDS: CIPROFLOXACIN HCL 500 MG TAB PO SCH ×2 (10:20→21:00)
[2017-06-28] MEDS: MULTIVITAMINS, THERA 1 EACH TAB PO SCH (10:20)
[2017-06-28] MEDS: AMOXICILLIN 875 MG TAB PO SCH ×2 (10:20→21:00)
[2017-06-28] MEDS: ASPIRIN 325 MG TAB PO SCH (10:20)
[2017-06-28] MEDS: TAMSULOSIN 0.4 MG CAP.ER.24H PO SCH ×2 (10:20→15:07)
[2017-06-28] MEDS: FUROSEMIDE 10 MG/ML 4 ML VIAL IV SCH ×2 (10:23→21:01)
[2017-06-28] MEDS: predniSONE 20 MG TAB PO SCH (10:24)
[2017-06-28 14:23] LABS: Anisocytosis Slight; Basophils % (A) 0 %; Eosinophils % (A) 0 %; HCT 40.3 % (39.0-53.0); HGB 13.4 gm/dL (13.0-17.5); Lymphocytes # (A) 0.3 k/uL (1.0-4.8); Lymphocytes % (A) 3 %; MCH 31.5 pg (25.0-35.0); MCHC 33.3 g/dL (31.0-37.0); MCV 94.5 fL (80.0-100.0); Mean Platelet Volume 8.7; Monocytes # (A) 0.3 k/uL (0-1.0); Monocytes % (A) 3 %; Neutrophils # (A) 10.1 k/uL (1.3-7.7); Neutrophils % (A) 94 %; Poikilocytosis Slight; RBC 4.26 m/uL (4.30-5.90); RDW 17.2 % (11.5-15.5); WBC 10.9 k/uL (3.8-10.6)
[2017-06-28 14:27] LABS: Platelet Count 90 k/uL (150-450)
[2017-06-28 14:35] LABS: Albumin 3.1 g/dL (3.5-5.0); Calcium 8.8 mg/dL (8.4-10.2); Potassium 4.5 mmol/L (3.5-5.1); Total Bilirubin 0.5 mg/dL (0.2-1.3); Total Protein 5.9 g/dL (6.3-8.2)
--- NOTE | 2017-06-28 14:44 | P.CNPUL ---
History of Present Illness Consult date: 06/28/17 Requesting physician: Leonardo Banda Reason for consult: dyspnea, pulmonary fibrosis Chief complaint: Shortness of breath and cough. 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 Patient is not on any specific treatment for pulmonary fibrosis except maintained on prednisone which is given mostly for his history of fibrosis and ITP. Patient presented to the ER yesterday with a few days' history of increased shortness of breath, cough, weakness, fatigue. Cough is productive with whitish phlegm. No documented fever, no chills, no hemoptysis, no chest pain. Patient is also known to have history of aortic graft with bowel rupture causing peritonitis, maintained on prophylactic antibiotics in the form of ciprofloxacin and amoxicillin. This was consistent with emphysema, and interstitial lung disease noted bilaterally. There was no evidence of pulmonary embolism. However the CT of the chest was suggestive of pulmonary hypertension. I reviewed the CT of the chest, and there is clearly some interlobular septal balance as well as pleural honeycombing thickened parenchymal bands, and hiatal hernia was noted. His labs were reviewed he had a relatively normal CBC except for platelets being low at 90,000, and his troponin was a bit elevated with elevated BNP level. Over 5000. Hence the patient was admitted, placed back on his usual meds including steroids, placed on antibiotics, and he is on diuretics is also on heparin because of his positive troponin, and he is yet to be seen by cardiology on consultation. Patient is feeling a bit better since he was admitted, denies any headache no blurred vision no dizziness, no chest pain, no nausea no vomiting no abdominal pain, no melena, no hematemesis, no dysuria and no frequency no urgency. Review of Systems 14 point review of systems were obtained, please refer to pertinent positives in HPI, otherwise remaining systems are negative. Past Medical History Past Medical History: Asthma, CVA/TIA, Hearing Disorder / Deafness, Hyperlipidemia, Hypertension, Prostate Disorder, Thyroid Disorder Additional Past Medical History / Comment(s): deaf in right ear History of Any Multi-Drug Resistant Organisms: None Reported Past Surgical History: Appendectomy, Back Surgery, Hernia Repair, Orthopedic Surgery, Tonsillectomy Additional Past Surgical History / Comment(s): aortic aneursym repair x2, " leaky valve repair", eyelid surgery, cardiac cath, acoustic neuroma, laminectomy Past Anesthesia/Blood Transfusion Reactions: No Reported Reaction Past Psychological History: No Psychological Hx Reported Smoking Status: Former smoker Past Alcohol Use History: None Reported Past Drug Use History: None Reported - Past Family History Father Family Medical History: CVA/TIA Sister(s) Family Medical History: Diabetes Mellitus Medications and Allergies Home Medications Medication Instructions Recorded Confirmed Type Amoxicillin/Potassium Clav 1 tab PO Q12HR 01/04/15 06/27/17 History [Augmentin 875-125 Tablet] Carvedilol [Coreg] 12.5 mg PO BID 01/04/15 06/27/17 History Ciprofloxacin HCl [Cipro] 500 mg PO Q12HR 01/04/15 06/27/17 History Levothyroxine Sodium [Synthroid] 150 mcg PO DAILY 01/04/15 06/27/17 History Simvastatin [Zocor] 40 mg PO HS 01/04/15 06/27/17 History Albuterol Sulfate [Proair Hfa] 1 - 2 puff INHALATION RT-Q6H PRN 06/27/17 History DULoxetine HCL [Cymbalta] 30 mg PO DAILY 06/27/17 06/27/17 History Tiotropium [place] [Spiriva 1 puff INHALATION RT-DAILY 06/27/17 06/27/17 History Respimat] predniSONE 20 mg PO DAILY 06/27/17 06/27/17 History Allergies Allergy/AdvReac Type Severity Reaction Status Date / Time DILLON Inhibitors Allergy Swelling Verified 06/27/17 13:23 Physical Exam Vitals: Vital Signs Temp Pulse Pulse Resp BP Pulse Ox 06/28/17 12:24 76 06/28/17 12:13 76 06/28/17 08:47 76 06/28/17 08:30 72 06/28/17 08:00 98 F 70 16 133/76 94 L 06/28/17 03:56 98.0 F 71 18 106/60 95 06/28/17 03:55 80 18 06/28/17 00:00 97.6 F 80 18 112/59 93 L 06/27/17 20:19 96 06/27/17 20:04 92 06/27/17 20:00 98.5 F 77 18 109/76 94 L 06/27/17 16:08 92 06/27/17 15:53 92 96 06/27/17 15:30 98.3 F 76 18 108/69 97 Intake and Output 06/27/17 06/28/17 06/28/17 22:59 06:59 14:59 Intake Total 435.156 379.623 360 Output Total 950 Balance -514.844 379.623 360 Intake: Intake, IV Titration 105.156 254.623 Amount Heparin Sodium,Porcine/ 105.156 154.623 D5w Pmx 25,000 unit In Dextrose/Water 1 500ml. bag @ 12 UNITS/KG/HR 15. 24 mls/hr IV .Q24H [facility] Rx #:[id number] Sodium Chloride 0.9% 1, 100 000 ml @ 75 mls/hr IV . [id number] [facility] Rx#:[id number] Oral 330 125 360 Output: Urine 950 Other: Voiding Method Urinal Urinal # Voids 2 Weight 71.9 kg 71.8 kg Physical exam revealed a 76-year-old white male in no form of respiratory distress. Head: Atraumatic, normocephalic. HEENT: PERRLA, EOMI. Anicteric conjunctiva are pink and moist nasal mucosa grossly intact without significant lesions, throat was noted to be clear. Neck: The neck is supple without significant lymphadenopathy or thyromegaly. Lungs: Symmetrical air entry is noted, minimal fine crackles at the bases, and Velcro rales noted. No rhonchi, no wheezes. Heart: Irregular with an audible S1 and S2 positive S4 2/6 systolic murmur easily heard at the right sternal border. Abdomen: Positive bowel sounds soft and nontender without palpable masses or organomegaly. There was no guarding or rebound. Extremities: No clubbing, 1+ bipedal edema, no cyanosis. Neuro: Awake alert oriented to person place and time. There are no acute new gross focal sensory motor deficits. Psychiatric: Normal mood affect and mental status examination. Lymphatics: No lymphadenopathy. Results - Laboratory Findings CBC and BMP: 06/28/17 13:55 06/27/17 10:00 PT/INR, D-dimer PT 10.3 sec (9.0-12.0) 06/27/17 10:00 INR 1.1 (<1.2) 06/27/17 10:00 D-Dimer 4.31 mg/L FEU (<0.60) H 06/27/17 10:00 Abnormal lab findings: Abnormal Labs 06/27/17 06/27/17 06/27/17 10:00 10:00 10:00 WBC RBC RDW 17.6 H Plt Count 56 L Neutrophils # Lymphocytes # 0.3 L APTT D-Dimer Sodium 136 L BUN 27 H Calcium 8.3 L AST 64 H Total Creatine Kinase <20 L Troponin I 0.233 H* Total Protein 5.5 L Albumin 2.9 L 06/27/17 06/27/17 06/27/17 10:00 15:58 19:12 WBC RBC RDW Plt Count Neutrophils # Lymphocytes # APTT 34.3 H D-Dimer 4.31 H Sodium BUN Calcium AST Total Creatine Kinase 20 L Troponin I 0.228 H* Total Protein Albumin 06/27/17 06/28/17 06/28/17 21:54 02:27 10:56 WBC RBC RDW Plt Count Neutrophils # Lymphocytes # APTT 45.0 H 44.8 H D-Dimer Sodium BUN Calcium AST Total Creatine Kinase <20 L Troponin I 0.114 H* Total Protein Albumin 06/28/17 13:55 WBC 10.9 H RBC 4.26 L RDW 17.2 H Plt Count 90 L D Neutrophils # 10.1 H Lymphocytes # 0.3 L APTT D-Dimer Sodium BUN Calcium AST Total Creatine Kinase Troponin I Total Protein Albumin - Diagnostic Findings CT scan - chest: image reviewed (As noted in HPI.) Assessment and Plan Assessment: Impression: 1 acute shortness of breath, multifactorial, secondary to interstitial lung disease, consistent with idiopathic pulmonary fibrosis/usual interstitial pneumonitis. suspect some component of COPD, tracheobronchitis, and possibly some component of interstitial edema, possible systolic congestive heart failure. 2 biventricular heart failure is suspected, cardiology consultation and echocardiogram are pending. 3 possible non-ST elevation myocardial infarction. Patient is presently maintained on heparin, 4 ITP presently under control, maintained on prednisone. This was recently diagnosed. 5 previous complications of aortic graft and peritonitis, maintained on lifetime prophylactic antibiotic therapy. Recommendation: Continue present treatment plan including diuretics, bronchodilators, antibiotics, steroids, follow-up chest x-ray in a.m., will continue to follow. Orders placed on the chart. Time with Patient: Greater than 30
[2017-06-28] MEDS: guaiFENesin 600 MG TABLET.ER PO SCH ×2 (15:08→21:00)
--- NOTE | 2017-06-28 15:08 | P.CRDCN ---
History of Present Illness Consult date: 06/28/17 History of present illness: This is a 76-year-old gentleman with history of interstitial lung disease, aortic regurgitation and also abdominal aortic aneurysm who presented to the emergency room with complaints of increasing shortness of breath, fatigue and weakness. He was also having some cough. He complained of occasional chest discomfort like a gas is feeling in the lower chest area. These are brief and lasting about 5 minutes. A chest x-ray and computed tomography scan were consistent with pulmonary fibrosis and interstitial lung disease. Echocardiogram showed near normal LV function with evidence of pulmonary hypertension and moderate aortic regurgitation. He also has an ascending aortic aneurysm measuring about 4.7 cm. Computed tomography scan did not reveal any evidence of dissection. Patient is being treated with antibiotics and steroids and feeling slightly better. His troponin values are elevated but they're not consistent with definitive myocardial infarction. However underlying ischemic heart disease cannot be excluded. I'll continue to maximize medical therapy. I will discuss with Dr. HARLEEN Mcghee who follows him regularly, regarding possible cardiac catheterization. His proBNP is also elevated Review of Systems As per the chart Past Medical History Past Medical History: Asthma, CVA/TIA, Hearing Disorder / Deafness, Hyperlipidemia, Hypertension, Prostate Disorder, Thyroid Disorder Additional Past Medical History / Comment(s): deaf in right ear History of Any Multi-Drug Resistant Organisms: None Reported Past Surgical History: Appendectomy, Back Surgery, Hernia Repair, Orthopedic Surgery, Tonsillectomy Additional Past Surgical History / Comment(s): aortic aneursym repair x2, " leaky valve repair", eyelid surgery, cardiac cath, acoustic neuroma, laminectomy Past Anesthesia/Blood Transfusion Reactions: No Reported Reaction Past Psychological History: No Psychological Hx Reported Smoking Status: Former smoker Past Alcohol Use History: None Reported Past Drug Use History: None Reported - Past Family History Father Family Medical History: CVA/TIA Sister(s) Family Medical History: Diabetes Mellitus Medications and Allergies Home Medications Medication Instructions Recorded Confirmed Type Amoxicillin/Potassium Clav 1 tab PO Q12HR 01/04/15 06/27/17 History [Augmentin 875-125 Tablet] Carvedilol [Coreg] 12.5 mg PO BID 01/04/15 06/27/17 History Ciprofloxacin HCl [Cipro] 500 mg PO Q12HR 01/04/15 06/27/17 History Levothyroxine Sodium [Synthroid] 150 mcg PO DAILY 01/04/15 06/27/17 History Simvastatin [Zocor] 40 mg PO HS 01/04/15 06/27/17 History Albuterol Sulfate [Proair Hfa] 1 - 2 puff INHALATION RT-Q6H PRN 06/27/17 History DULoxetine HCL [Cymbalta] 30 mg PO DAILY 06/27/17 06/27/17 History Tiotropium [place] [Spiriva 1 puff INHALATION RT-DAILY 06/27/17 06/27/17 History Respimat] predniSONE 20 mg PO DAILY 06/27/17 06/27/17 History Allergies Allergy/AdvReac Type Severity Reaction Status Date / Time DILLON Inhibitors Allergy Swelling Verified 06/27/17 13:23 Physical Exam Vitals: Vital Signs Temp Pulse Pulse Resp BP Pulse Ox 06/28/17 12:24 76 06/28/17 12:13 76 06/28/17 08:47 76 06/28/17 08:30 72 06/28/17 08:00 98 F 70 16 133/76 94 L 06/28/17 03:56 98.0 F 71 18 106/60 95 06/28/17 03:55 80 18 06/28/17 00:00 97.6 F 80 18 112/59 93 L 06/27/17 20:19 96 06/27/17 20:04 92 06/27/17 20:00 98.5 F 77 18 109/76 94 L 06/27/17 16:08 92 06/27/17 15:53 92 96 06/27/17 15:30 98.3 F 76 18 108/69 97 Intake and Output 06/28/17 06/28/17 06/28/17 06:59 14:59 22:59 Intake Total 379.623 360 Balance 379.623 360 Intake: Intake, IV Titration 254.623 Amount Heparin Sodium,Porcine/ 154.623 D5w Pmx 25,000 unit In Dextrose/Water 1 500ml. bag @ 12 UNITS/KG/HR 15. 24 mls/hr IV .Q24H [facility] Rx #:[id number] Sodium Chloride 0.9% 1, 100 000 ml @ 75 mls/hr IV . [id number] [facility] Rx#:[id number] Oral 125 360 Other: Voiding Method Urinal # Voids 2 Weight 71.8 kg GENERAL EXAM: Patient is alert and oriented and doesn't appear to be in any acute distress HEENT: Normocephalic. Normal reaction of pupils, equal size, normal range of extraocular motion. No erythema or exudates in the throat. NECK: No masses, no nuchal rigidity. CHEST: No chest wall deformity. LUNGS: Coarse rales bilaterally HEART: S1 and S2 normal with no audible mumurs or gallops. Regular rhythm, femorals equal on both sides.. ABDOMEN: No hepatosplenomegaly, normal bowel sounds, no guarding or rigidity. SKIN: No rashes CENTRAL NERVOUS SYSTEM: No focal deficits. EXTREMITIES: No cyanosis, clubbing or edema. Results 06/28/17 13:55 06/28/17 13:55 Cardiac Enzymes 06/27/17 06/27/17 06/28/17 Range/Units 15:58 21:54 13:55 AST 62 H (17-59) U/L CK-MB (CK-2) 0.6 0.7 (0.0-2.4) ng/mL Troponin I 0.228 H* 0.114 H* (0.000-0.034) ng/mL Coagulation 06/27/17 06/28/17 06/28/17 Range/Units 19:12 02:27 10:56 APTT 34.3 H 45.0 H 44.8 H (22.0-30.0) sec Lipids 06/28/17 Range/Units 02:27 Triglycerides 67 (<150) mg/dL Cholesterol 132 (<200) mg/dL HDL Cholesterol 52 (40-60) mg/dL CBC 06/28/17 Range/Units 13:55 WBC 10.9 H (3.8-10.6) k/uL RBC 4.26 L (4.30-5.90) m/uL Hgb 13.4 (13.0-17.5) gm/dL Hct 40.3 (39.0-53.0) % Plt Count 90 L D (150-450) k/uL Comprehensive Metabolic Panel 06/28/17 Range/Units 13:55 Sodium 133 L (137-145) mmol/L Potassium 4.5 (3.5-5.1) mmol/L Chloride 96 L (98-107) mmol/L Carbon Dioxide 25 (22-30) mmol/L BUN 38 H (9-20) mg/dL Creatinine 1.20 (0.66-1.25) mg/dL Glucose 171 H (74-99) mg/dL Calcium 8.8 (8.4-10.2) mg/dL AST 62 H (17-59) U/L ALT 32 (21-72) U/L Alkaline Phosphatase 54 (38-126) U/L Total Protein 5.9 L (6.3-8.2) g/dL Albumin 3.1 L (3.5-5.0) g/dL Current Medications Generic Name Dose Route Start Last Admin Trade Name Freq PRN Reason Stop Dose Admin Acetaminophen 500 mg 06/27/17 21:00 06/27/17 23:03 Tylenol Tab PO Not Given HS [facility] Albuterol/Ipratropium 3 ml 06/27/17 16:00 06/28/17 12:13 Duoneb 0.5 Mg-3 Mg/3 Ml Soln INHALATION 3 ml RT-Q4H [facility] Administration Albuterol/Ipratropium 3 ml 06/27/17 14:04 Duoneb 0.5 Mg-3 Mg/3 Ml Soln INHALATION RT-QID PRN Shortness Of Breath Or Wheezing Amoxicillin 875 mg 06/27/17 21:00 06/28/17 10:20 Amoxicillin PO 875 mg Q12HR [facility]OE Administration Aspirin 325 mg 06/28/17 09:00 06/28/17 10:20 Aspirin PO 325 mg DAILY [facility]OE Administration Atorvastatin Calcium 20 mg 06/27/17 21:00 06/27/17 20:10 Lipitor PO 20 mg HS ZOE Administration Budesonide/Formoterol Fumarate 2 puff 06/28/17 20:00 Symbicort 160-4.5 Mcg Inhaler INHALATION RT-BID [facility]OE Carvedilol 12.5 mg 06/27/17 17:30 06/28/17 06:34 Coreg PO 12.5 mg AC-BID ZOE Administration Ciprofloxacin 500 mg 06/27/17 21:00 06/28/17 10:20 Cipro PO 500 mg Q12HR [facility]OE Administration Diphenhydramine HCl 25 mg 06/27/17 21:00 06/27/17 23:03 Benadryl PO 25 mg HS ZOE Administration Furosemide 40 mg 06/28/17 10:00 06/28/17 10:23 Lasix IV 40 mg Q12HR [facility] Administration Guaifenesin 1,200 mg 06/28/17 10:00 Mucinex PO Q12HR [facility] Heparin Sodium/Dextrose 25,000 500 mls @ 15.24 mls/hr 06/27/17 12:45 04:13 unit/ IV Solution IV 17 units/kg/hr .Q24H [facility] 21.59 mls/hr Protocol Titration 12 UNITS/KG/HR Levothyroxine Sodium 150 mcg 06/28/17 06:30 06/28/17 06:34 Synthroid PO 150 mcg 0630 [facility] Administration Miscellaneous Information 1 each 06/27/17 14:00 Rx Info: Iv Contrast Was Given MISCELLANE 06/29/17 14:01 DAILY PRN Per Protocol Multivitamins 1 each 06/28/17 12:00 06/28/17 10:20 Theragran PO 1 each 1200 [facility] Administration Nitroglycerin 1 inch 06/27/17 18:00 06/28/17 06:34 Nitro-Bid Oint TOPICAL 1 inch Q6HR [facility] Administration Nitroglycerin 0.4 mg 06/27/17 12:40 Nitrostat SUBLINGUAL Q5M PRN Chest Pain Ondansetron HCl 4 mg 06/27/17 12:43 Zofran Odt PO Q8HR PRN Nausea Prednisone 20 mg 06/28/17 10:15 06/28/17 10:24 PO 20 mg DAILY [facility] Administration Tamsulosin HCl 0.4 mg 06/28/17 09:00 Flomax PO DAILY [facility] Intake and Output 06/28/17 06/28/17 06/28/17 06:59 14:59 22:59 Intake Total 379.623 360 Balance 379.623 360 Intake: Intake, IV Titration 254.623 Amount Heparin Sodium,Porcine/ 154.623 D5w Pmx 25,000 unit In Dextrose/Water 1 500ml. bag @ 12 UNITS/KG/HR 15. 24 mls/hr IV .Q24H [facility] Rx #:[id number] Sodium Chloride 0.9% 1, 100 000 ml @ 75 mls/hr IV . [id number] [facility] Rx#:[id number] Oral 125 360 Other: Voiding Method Urinal # Voids 2 Weight 71.8 kg 06/28/17 13:55 06/28/17 13:55 EKG Interpretations (text) Sinus rhythm without any acute abnormalities Assessment and Plan (1) COPD with emphysema Current Visit: Yes Status: Acute Code(s): J43.9 - EMPHYSEMA, UNSPECIFIED SNOMED Code(s): 68093587 (2) Elevated brain natriuretic peptide (BNP) level Current Visit: Yes Status: Acute Code(s): R79.89 - OTHER SPECIFIED ABNORMAL FINDINGS OF BLOOD CHEMISTRY SNOMED Code(s): 714467342 (3) Elevated troponin Current Visit: Yes Status: Acute Code(s): R74.8 - ABNORMAL LEVELS OF OTHER SERUM ENZYMES SNOMED Code(s): 053007069 (4) History of ITP Current Visit: Yes Status: Acute Code(s): Z86.2 - PRSNL HISTORY OF DIS OF THE BLD/BLD-FORM ORG/IMMUN [facility] SNOMED Code(s): 693275978 Plan: Continue the current medical therapy. I will also add nitrates. I will discuss with Dr. HARLEEN Mcghee regarding possible cardiac catheterization to rule out underlying ischemic heart disease. Further recommendations depend upon the clinical course
[2017-06-28] MEDS: SYMBICORT 160-4.5 MCG INHALER INHALATION SCH (19:58)
[2017-06-28] MEDS: HEPARIN SODIUM,PORCINE/D5W PMX 25,000 UNIT in DEXTROSE/WATER 1 500ML.BAG IV SCH (20:04)
[2017-06-28] MEDS: ATORVASTATIN 20 MG TAB PO SCH (21:00)
[2017-06-28] MEDS: ACETAMINOPHEN TAB 500 MG TAB PO SCH (23:24)
[2017-06-28] MEDS: diphenhydrAMINE 25 MG CAP PO SCH (23:24)
[2017-06-29] MEDS: IPRATROPIUM-ALBUTEROL 3 ML NEB INHALATION SCH ×7 (00:52→23:23)
[2017-06-29] MEDS: LEVOTHYROXINE 75 MCG TAB PO SCH (06:06)
[2017-06-29] MEDS: CARVEDILOL 12.5 MG TAB PO SCH ×2 (06:06→15:23)
[2017-06-29] MEDS: NITROGLYCERIN OINT 1 INCH/GM PACKET TOPICAL SCH ×3 (06:06→17:14)
[2017-06-29] MEDS: SYMBICORT 160-4.5 MCG INHALER INHALATION SCH ×2 (06:47→19:55)
[2017-06-29] MEDS: guaiFENesin 600 MG TABLET.ER PO SCH ×2 (08:47→20:46)
[2017-06-29] MEDS: FUROSEMIDE 10 MG/ML 4 ML VIAL IV SCH (08:47)
[2017-06-29] MEDS: ASPIRIN 325 MG TAB PO SCH (08:48)
[2017-06-29] MEDS: AMOXICILLIN 875 MG TAB PO SCH ×2 (08:48→20:46)
[2017-06-29] MEDS: CIPROFLOXACIN HCL 500 MG TAB PO SCH ×2 (08:48→20:46)
[2017-06-29] MEDS: MULTIVITAMINS, THERA 1 EACH TAB PO SCH (08:48)
[2017-06-29] MEDS: TAMSULOSIN 0.4 MG CAP.ER.24H PO SCH ×2 (08:48→08:51)
[2017-06-29] MEDS: predniSONE 20 MG TAB PO SCH (08:51)
--- NOTE | 2017-06-29 09:12 | P.PN ---
Subjective Progress Note Date: 06/29/17 Patient reports feeling much more comfortable and that his breathing is much better today, apparently had some bleeding from his ear yesterday and heparin was stopped , patient has clotted dried up blood in his ear, ENT consult has been requested overnight Patient has been afebrile since admission Objective - Vital Signs Vital signs: Vital Signs Temp 98.1 F 06/29/17 04:00 Pulse 82 06/29/17 07:01 Resp 18 06/29/17 04:00 BP 109/66 06/29/17 04:00 Pulse Ox 97 06/29/17 06:49 Intake & Output 06/28/17 06/29/17 06/29/17 18:59 06:59 18:59 Intake Total 1760.221 350 Output Total 400 Balance 1760.221 -50 Weight 71.5 kg Intake: Intake, IV Titration 320.221 Amount Heparin Sodium,Porcine/ 240.221 D5w Pmx 25,000 unit In Dextrose/Water 1 500ml. bag @ 12 UNITS/KG/HR 15. 24 mls/hr IV .Q24H [facility] Rx #:[id number] Sodium Chloride 0.9% 1, 80 000 ml @ 75 mls/hr IV . [id number] [facility] Rx#:[id number] Oral 1440 350 Output: Urine 400 Other: Voiding Method Urinal Urinal # Voids 2 3 - Exam Constitutional: No acute distress, conversant, pleasant Eyes: Anicteric sclerae, moist conjunctiva, no lid-lag, PERRLA ENMT: NC/AT,Oropharynx clear, no erythema, exudates Neck:Supple, FROM, no masses, or JVD, No carotid bruits; No thyromegaly Lungs: Clear to auscultation Clear to percussion, Normal respiratory effort, no accessory muscle use Cardiovascular: Heart regular in rate and rhythm, No murmurs, gallops, or rubs no peripheral edema Abdominal: Soft Nontender, nom distended, no guarding, no rebound or rigidity, Normoactive bowel sounds No hepatomegaly, No splenomegaly, No palpable mass No abdominal wall hernia noted Skin: Normal temperature, tone, texture, turgor, No induration No subcutaneous nodules, No rash, lesions, No ulcers Extremities:No digital cyanosis No clubbing, Pedal pulses intact and symmetrical Radial pulses intact and symmetrical Normal gait and station, No calf tenderness Psychiatric: Alert and oriented to person, place and time, Appropriate affect Intact judgement Neuro: Muscles Strength 5/5 in all 4 extremities, Sensation to light touch grossly present throughout, Cranial nerves II-XII grossly intact. No focal sensory deficits - Labs CBC & Chem 7: 06/28/17 13:55 06/28/17 13:55 Labs: Abnormal Lab Results - Last 24 Hours (Table) 06/28/17 06/28/17 06/28/17 Range/Units 10:56 13:55 13:55 WBC 10.9 H (3.8-10.6) k/uL RBC 4.26 L (4.30-5.90) m/uL RDW 17.2 H (11.5-15.5) % Plt Count 90 L D (150-450) k/uL Neutrophils # 10.1 H (1.3-7.7) k/uL Lymphocytes # 0.3 L (1.0-4.8) k/uL APTT 44.8 H (22.0-30.0) sec Sodium 133 L (137-145) mmol/L Chloride 96 L (98-107) mmol/L BUN 38 H (9-20) mg/dL Glucose 171 H (74-99) mg/dL AST 62 H (17-59) U/L Total Protein 5.9 L (6.3-8.2) g/dL Albumin 3.1 L (3.5-5.0) g/dL 06/28/17 Range/Units 20:10 WBC (3.8-10.6) k/uL RBC (4.30-5.90) m/uL RDW (11.5-15.5) % Plt Count (150-450) k/uL Neutrophils # (1.3-7.7) k/uL Lymphocytes # (1.0-4.8) k/uL APTT 43.0 H (22.0-30.0) sec Sodium (137-145) mmol/L Chloride (98-107) mmol/L BUN (9-20) mg/dL Glucose (74-99) mg/dL AST (17-59) U/L Total Protein (6.3-8.2) g/dL Albumin (3.5-5.0) g/dL Microbiology - Last 24 Hours (Table) 06/27/17 10:00 Blood Culture - Preliminary Blood No Growth after 24 hours Assessment and Plan (1) Right-sided heart failure Narrative/Plan: * Right sided heart failure exacerbation, with pulmonary artery hypertension seen on echocardiogram with normal ejection fraction of 50-55% * CTA of the chest negative for PE, consistent with pulmonary hypertension along with end-stage lung disease COPD and interstitial lung disease * Hypervolemic lung exam will initiated Lasix 40 mg IV twice a day * Awaiting cardiology recommendations Current Visit: Yes Status: Acute Code(s): I50.810 - RIGHT HEART FAILURE, UNSPECIFIED SNOMED Code(s): 902209240 (2) Elevated troponin Narrative/Plan: * Likely stage II non-ST elevation VT secondary to demand ischemia * Cardiac enzymes trending down * Cardiology considering heart catheterization Current Visit: Yes Status: Acute Code(s): R74.8 - ABNORMAL LEVELS OF OTHER SERUM ENZYMES SNOMED Code(s): 317682130 (3) Dyspnea on exertion Narrative/Plan: * We'll continue with supplemental oxygen and continue to monitor * Multifactorial secondary to right-sided heart failure superimposed on end- stage lung disease, ILD and COPD with emphysema * Awaiting pulmonary recommendations Current Visit: Yes Status: Acute Code(s): R06.09 - OTHER FORMS OF DYSPNEA SNOMED Code(s): 09193980 (4) Interstitial lung disease Current Visit: Yes Status: Acute Code(s): J84.9 - INTERSTITIAL PULMONARY DISEASE, UNSPECIFIED SNOMED Code(s): 672542062 (5) COPD with emphysema Current Visit: Yes Status: Acute Code(s): J43.9 - EMPHYSEMA, UNSPECIFIED SNOMED Code(s): 74230346 (6) Pulmonary hypertension Current Visit: Yes Status: Acute Code(s): I27.20 - PULMONARY HYPERTENSION, UNSPECIFIED SNOMED Code(s): 63716791 (7) History of ITP Narrative/Plan: * Resume prednisone 20 mg by mouth daily Current Visit: Yes Status: Acute Code(s): Z86.2 - PRSNL HISTORY OF DIS OF THE BLD/BLD-FORM ORG/IMMUN [facility] SNOMED Code(s): 498714141
--- NOTE | 2017-06-29 14:14 | P.PN ---
Subjective Progress Note Date: 06/29/17 Principal diagnosis: Shortness of breath and weakness Progress note dated 06/29/2017 This is a 76-year-old male seen by my partner yesterday in consultation. He has a well-established history of interstitial pulmonary fibrosis. Is being followed by an outside special ed assistant from [facility] and [place]. The patient is not on any specific treatment for his idiopathic pulmonary fibrosis at this time. The patient is on chronic prednisone therapy for his idiopathic thrombocytopenic purpura. The patient apparently presented with shortness of breath as well as some weakness. He is thought to have some biventricular heart failure as well. There is also some concern about a non-ST segment elevation myocardial infarction and a catheterization is contemplated. As I mentioned he does have a history of ITP for which he is on chronic prednisone therapy. 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 Objective - Vital Signs Vital signs: Vital Signs Temp 97.2 F L 06/29/17 08:00 Pulse 91 06/29/17 11:43 Resp 18 06/29/17 11:43 BP 157/85 06/29/17 11:43 Pulse Ox 97 06/29/17 11:43 Intake & Output 06/28/17 06/29/17 06/29/17 18:59 06:59 18:59 Intake Total 1760.221 350 480 Output Total 400 300 Balance 1760.221 -50 180 Weight 71.5 kg Intake: Intake, IV Titration 320.221 Amount Heparin Sodium,Porcine/ 240.221 D5w Pmx 25,000 unit In Dextrose/Water 1 500ml. bag @ 12 UNITS/KG/HR 15. 24 mls/hr IV .Q24H [facility] Rx #:[id number] Sodium Chloride 0.9% 1, 80 000 ml @ 75 mls/hr IV . [id number] [facility] Rx#:[id number] Oral 1440 350 480 Output: Urine 400 300 Other: Voiding Method Urinal Urinal # Voids 2 3 1 - Exam No acute distress, oriented 3. Nasal O2 in place. HEENT examination is grossly unremarkable. Mucous membranes are moist. No oral lesions. Neck supple. Full range of motion. No adenopathy thyromegaly or neck vein distention. Cardiovascular examination reveals regular rhythm rate. S1-S2 normal. No S3 or S4. Soft heart murmur is appreciated. Lungs reveal bibasilar Velcro crackles. Breath sounds are diminished. Mild restriction in his breathing. No rhonchi or wheezes.. Abdomen soft bowel sounds are heard. No masses or tenderness. Extremities are intact. Slight edema is noted. Skin is without rash or lesion. Neurologic examination is brief but nonfocal. - Labs CBC & Chem 7: 06/28/17 13:55 06/28/17 13:55 Labs: Abnormal Lab Results - Last 24 Hours (Table) 06/28/17 06/28/17 06/28/17 Range/Units 13:55 13:55 20:10 WBC 10.9 H (3.8-10.6) k/uL RBC 4.26 L (4.30-5.90) m/uL RDW 17.2 H (11.5-15.5) % Plt Count 90 L D (150-450) k/uL Neutrophils # 10.1 H (1.3-7.7) k/uL Lymphocytes # 0.3 L (1.0-4.8) k/uL APTT 43.0 H (22.0-30.0) sec Sodium 133 L (137-145) mmol/L Chloride 96 L (98-107) mmol/L BUN 38 H (9-20) mg/dL Glucose 171 H (74-99) mg/dL AST 62 H (17-59) U/L Total Protein 5.9 L (6.3-8.2) g/dL Albumin 3.1 L (3.5-5.0) g/dL Microbiology - Last 24 Hours (Table) 06/27/17 10:00 Blood Culture - Preliminary Blood No Growth after 48 hours Assessment and Plan Assessment: Assessment Acute shortness of breath, multifactorial, in part related to idiopathic pulmonary fibrosis, possible COPD/tracheobronchitis, and mild interstitial edema from systolic CHF. Biventricular heart failure. Possible non-ST segment elevation myocardial infarction ITP, currently on chronic prednisone therapy. Previous history of aortic aneurysm repair Valvular heart disease Plan: Plan dated 06/29/2017 The patient is apparently going to have a heart catheterization tomorrow. Additional recommendations and suggestions are forthcoming. We'll continue to follow. Medications labs and x-rays are all reviewed. 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 Time with Patient: Less than 30
[2017-06-29 14:24] LABS: Anisocytosis Slight; Basophils % (A) 0 %; Eosinophils % (A) 0 %; HCT 41.9 % (39.0-53.0); HGB 13.6 gm/dL (13.0-17.5); Hypochromasia Slight; Lymphocytes # (A) 0.2 k/uL (1.0-4.8); Lymphocytes % (A) 2 %; MCHC 32.5 g/dL (31.0-37.0); MCV 95.5 fL (80.0-100.0); Mean Platelet Volume 8.7; Monocytes # (A) 0.3 k/uL (0-1.0); Monocytes % (A) 2 %; Neutrophils # (A) 9.9 k/uL (1.3-7.7); Neutrophils % (A) 95 %; Platelet Count 102 k/uL (150-450); Poikilocytosis Slight; RBC 4.38 m/uL (4.30-5.90); RDW 16.9 % (11.5-15.5); WBC 10.4 k/uL (3.8-10.6)
[2017-06-29 14:31] VITALS: BMI 22.6
[2017-06-29 14:53] LABS: Albumin 3.2 g/dL (3.5-5.0); Calcium 9.1 mg/dL (8.4-10.2); Total Bilirubin 0.5 mg/dL (0.2-1.3)
--- NOTE | 2017-06-29 16:06 | P.PN ---
Subjective Progress Note Date: 06/29/17 This is a 76-year-old gentleman with history of interstitial lung disease, aortic regurgitation and also abdominal aortic aneurysm who presented to the emergency room with complaints of increasing shortness of breath, fatigue and weakness. He was also having some cough. He complained of occasional chest discomfort like a gas is feeling in the lower chest area. These are brief and lasting about 5 minutes. A chest x-ray and computed tomography scan were consistent with pulmonary fibrosis and interstitial lung disease. Echocardiogram showed near normal LV function with evidence of pulmonary hypertension and moderate aortic regurgitation. He also has an ascending aortic aneurysm measuring about 4.7 cm. Computed tomography scan did not reveal any evidence of dissection. Patient is being treated with antibiotics and steroids and feeling slightly better. His troponin values are elevated but they're not consistent with definitive myocardial infarction. However underlying ischemic heart disease cannot be excluded. I'll continue to maximize medical therapy. I will discuss with Dr. HARLEEN Mcghee who follows him regularly, regarding possible cardiac catheterization. His proBNP is also elevated 06/29/2017 Patient was seen and examined this morning, he appears to be a little anxious, he is wondering whether or not Dr. Mcghee as can to do a heart catheterization on him. Dr. Mitchell did speak with Dr. HARLEEN Mcghee today who felt that medical therapy would be the best. Blood pressure and heart rate stable today. White blood cell count 10.4, hemoglobin 13.6, platelet count 102. Sodium 136 , potassium 5.0, BUN 43, creatinine 1.3. Objective - Vital Signs Vital signs: Vital Signs Temp 97.2 F L 06/29/17 08:00 Pulse 82 06/29/17 15:40 Resp 18 06/29/17 11:43 BP 157/85 06/29/17 11:43 Pulse Ox 97 06/29/17 11:43 Intake & Output 06/28/17 06/29/17 06/29/17 18:59 06:59 18:59 Intake Total 1760.221 350 480 Output Total 400 300 Balance 1760.221 -50 180 Weight 71.5 kg 71.5 kg Intake: Intake, IV Titration 320.221 Amount Heparin Sodium,Porcine/ 240.221 D5w Pmx 25,000 unit In Dextrose/Water 1 500ml. bag @ 12 UNITS/KG/HR 15. 24 mls/hr IV .Q24H [facility] Rx #:[id number] Sodium Chloride 0.9% 1, 80 000 ml @ 75 mls/hr IV . [id number] STA Rx#:[id number] Oral 1440 350 480 Output: Urine 400 300 Other: Voiding Method Urinal Urinal # Voids 2 3 1 - Exam PHYSICAL EXAMINATION: HEENT: Head is atraumatic, normocephalic. Pupils equal, round. Neck is supple. There is no elevated jugular venous pressure. HEART EXAMINATION: Heart S1, S2 normal. No murmur or gallop heard. CHEST EXAMINATION: Lungs are clear to auscultation and precussion. No chest wall tenderness is noted on palpation or with deep breathing. ABDOMEN: Soft, nontender. Bowel sounds are heard. No organomegaly noted. EXTREMITIES: 2+ peripheral pulses with no evidence of peripheral edema and no calf tenderness noted. NEUROLOGIC patient is awake, alert and oriented -3. . - Labs CBC & Chem 7: 06/29/17 14:01 06/29/17 14:01 Labs: Abnormal Lab Results - Last 24 Hours (Table) 06/28/17 06/29/17 06/29/17 Range/Units 20:10 14:01 14:01 RDW 16.9 H (11.5-15.5) % Plt Count 102 L (150-450) k/uL Neutrophils # 9.9 H (1.3-7.7) k/uL Lymphocytes # 0.2 L (1.0-4.8) k/uL APTT 43.0 H (22.0-30.0) sec Sodium 136 L (137-145) mmol/L Chloride 94 L (98-107) mmol/L BUN 43 H (9-20) mg/dL Creatinine 1.30 H (0.66-1.25) mg/dL Glucose 208 H (74-99) mg/dL AST 70 H (17-59) U/L Total Protein 6.0 L (6.3-8.2) g/dL Albumin 3.2 L (3.5-5.0) g/dL Microbiology - Last 24 Hours (Table) 06/27/17 10:00 Blood Culture - Preliminary Blood No Growth after 48 hours Assessment and Plan Plan: Assessment and plan #1 shortness of breath, likely secondary to COPD and tracheobronchitis, mild systolic congestive heart failure acute on chronic #2 abnormal troponins, not consistent with myocardial infarction, however underlying ischemic heart disease cannot be excluded. The decision was made to maximize medical therapy, Dr. Mitchell did speak with Dr. Christoph Mcghee regarding this. #3 ITP, currently on prednisone therapy #4 history of aortic aneurysm repair #5 TIA #6 hyperlipidemia #7 hypothyroidism Plan From cardiology's perspective, we will continue current maximal medical therapy. DNP note has been reviewed, I agree with a documented findings and plan of care. Patient was seen and examined.
--- NOTE | 2017-06-29 20:28 | PN ---
PROGRESS NOTE Mr. Hernández came into the hospital with episode of chest pain, had precordial ST-T changes and also had a high D-dimer, underwent CT angiography which was negative for pulmonary embolism. Patient has mild renal failure, some congestive heart failure, ejection fraction of 50% to 55% without any wall motion abnormality. EKG, however, suggests anterior ST-T changes which have resolved. Patient is comfortable. He had chest pain earlier today but is asymptomatic at this time. I recommended that we pursue medical management for him, but he was a little unhappy and therefore I came in to see him. In August of 2012 I performed a cardiac cath which revealed non-critical CAD with a very dominant right coronary artery. There was a 40% LAD stenosis and also in the diagonal, and I recommended medical therapy at that time. Patient has history of abdominal aortic aneurysm, previous surgical repair with some infection of the graft. He is on chronic antibiotics. He also has ascending aortic dilatation with aortic regurgitation and he does not wish to have any surgical intervention performed for any of his conditions. It was his desire not to have any invasive procedures performed and therefore I recommended medical therapy, but I came and had a long candid discussion with the patient. His creatinine is 1.3. He has an atrophic left kidney and he has already received 125 mL of contrast during his CT angiography about 36 hours ago. Under these circumstances, I am recommending that we discontinue Lasix, hydrate him cautiously, perform a BMP and CBC tomorrow and then, based on this, I will make further recommendations. I explained to Mr. Hernández that if he has chest pain, we will proceed with cardiac catheterization, but if he is more stable we will give him another 24 hours and consider performing the procedure either tomorrow or day after. I explained to him that he has only one single functional kidney on the right and that he has already received some dye. Therefore we will not sellers into a cardiac cath today, and we will consider either tomorrow or day after. We will continue carvedilol. We will add a small dose of losartan and hold diuretics and cautiously hydrate him. Patient understands the rationale, risks and benefits related to cardiac cath and I will perform the procedure after reviewing his renal function and further discussion. The patient was quite pleased and happy with the above-outlined plan and he also was appreciative of my explanation regarding his other comorbid conditions. I will talk to Dr. Mitchell and patient will be evaluated tomorrow and we will check a CBC and BMP. MMGRISL / IJN: [id number] /
[2017-06-29] MEDS: ATORVASTATIN 20 MG TAB PO SCH (20:46)
[2017-06-29] MEDS: diphenhydrAMINE 25 MG CAP PO SCH (20:54)
[2017-06-29] MEDS: ACETAMINOPHEN TAB 500 MG TAB PO SCH (20:54)
[2017-06-29] MEDS: SODIUM CHLORIDE 0.9% 1,000 ML IV SCH (20:57)
[2017-06-29] MEDS: MELATONIN 5 MG TABLET PO SCH (22:07)
--- NOTE | 2017-06-29 22:15 | P.PN ---
Subjective Progress Note Date: 06/29/17 Very pleasant 76-year-old male who has a history of ITP diagnosed earlier this year while he was in [place] this known history of underlying pulmonary fibrosis and significant cardiovascular disease. He has a known history of aortic valve insufficiency and known history of abdominal aortic aneurysm. The patient has a distant history regarding his aneurysm that several years ago he developed a significant intra-abdominal abscess related to the aortic graft resulting in colonic perforation and intra-abdominal abscess. He was treated outside hospital where he underwent replacement of his graft after the intranodal abscess in colonic perforation were treated. He relates the new graft was antibiotic laden and he's been on chronic antibiotic suppressive therapy with ciprofloxacin and amoxicillin as per the physician he follows through [facility]. 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 He relates his ITP is been under good control and has had some decrease of his prednisone as of late 120 mg a day. The patient was last few days has been feeling considerably weak. He's had a similar event in the past when he was out hunting and couldn't move around. This emesis consisted of a more short of breath not having much cough but profound weakness in counseling presents to Hospital. The emergency room workup revealed evidence of an elevated BNP of 5350 troponins were elevated. He has been treated with Solu-Medrol IV, diuretic therapy with Lasix breathing treatments and heparin drip was initiated. Because of his history of the graft and chronic antibiotic therapy the infectious diseases consultation was requested. The patient denies it is been having fevers or chills at home. He's had no difficulty with antibiotic therapy. He relates since his prednisone dose has been decreased he has not had difficulties with bleeding and did not know if his platelets had markedly changed since the recent dosing change of his immunosuppressive. 06/29/2017 patient feels better today, less short of breath than admit but still feels poorly, has discussed symptoms with cardiology.with his ongoing symptoms and prior angiography with coronary artery disease. With this there is plans for a repeat cardiac cath. Objective - Vital Signs Vital signs: Vital Signs Temp 97.2 F L 06/29/17 08:00 Pulse 87 06/29/17 17:08 Resp 18 06/29/17 16:00 BP 107/69 06/29/17 16:00 Pulse Ox 95 06/29/17 16:00 Intake & Output 06/29/17 06/29/17 06/30/17 06:59 18:59 06:59 Intake Total 350 720 Output Total 400 300 Balance -50 420 Weight 71.5 kg 71.5 kg Intake: Oral 350 720 Output: Urine 400 300 Other: Voiding Method Urinal # Voids 3 2 - Exam Pleasant 76-year-old male of a thin build who is not in ramona distress at this time, however he is at rest, relates that he gets very short of breath he tries to stand up and get to the chair. He does have oxygen in place. HEENT: Anicteric conjunctiva are pink and moist nasal mucosa grossly intact without significant lesions, there is no thrush.Extensive parietal dental work Neck: The neck is supple without significant lymphadenopathy or thyromegaly. Lungs: Symmetrical air entry is noted, basal crackles are heard, expiratory wheezes are scattered, no sticking bronchial sounds or dullness is noted no egophony. Heart: Irregular with an audible S1 and S2 positive S4 2/6 systolic murmur easily heard right sternal border have only trace edema Abdomen: Positive bowel sounds soft and nontender without palpable masses or organomegaly. There was no guarding or rebound. Extremities: The upper extremities have excellent pulses they are symmetric, no significant petechiae or telangiectasia. No splinter hemorrhages were noted. The lower extremities are free from significant edema. The peripheral pulses were 2+ and symmetric. Neuro: Awake alert oriented to person place and time. There are no acute new gross focal sensory motor deficits. - Labs CBC & Chem 7: 06/29/17 14:01 06/29/17 14:01 Labs: Abnormal Lab Results - Last 24 Hours (Table) 06/29/17 06/29/17 Range/Units 14: 14: RDW 16.9 H (11.5-15.5) % Plt Count 102 L (150-450) k/uL Neutrophils # 9.9 H (1.3-7.7) k/uL Lymphocytes # 0.2 L (1.0-4.8) k/uL Sodium 136 L (137-145) mmol/L Chloride 94 L (98-107) mmol/L BUN 43 H (9-20) mg/dL Creatinine 1.30 H (0.66-1.25) mg/dL Glucose 208 H (74-99) mg/dL AST 70 H (17-59) U/L Total Protein 6.0 L (6.3-8.2) g/dL Albumin 3.2 L (3.5-5.0) g/dL Microbiology - Last 24 Hours (Table) 06/27/17 10:00 Blood Culture - Preliminary Blood No Growth after 48 hours Laboratory Results WBC 10.4 k/uL (3.8-10.6) 06/29/17 14:01 RBC 4.38 m/uL (4.30-5.90) 06/29/17 14:01 Hgb 13.6 gm/dL (13.0-17.5) 06/29/17 14:01 Hct 41.9 % (39.0-53.0) 06/29/17 14:01 MCV 95.5 fL (80.0-100.0) 06/29/17 14:01 MCH 31.0 pg (25.0-35.0) 06/29/17 14:01 MCHC 32.5 g/dL (31.0-37.0) 06/29/17 14:01 RDW 16.9 % (11.5-15.5) H 06/29/17 14:01 Plt Count 102 k/uL (150-450) L 06/29/17 14:01 Neutrophils % 95 % 06/29/17 14:01 Lymphocytes % 2 % 06/29/17 14:01 Monocytes % 2 % 06/29/17 14:01 Eosinophils % 0 % 06/29/17 14:01 Basophils % 0 % 06/29/17 14:01 Neutrophils # 9.9 k/uL (1.3-7.7) H 06/29/17 14:01 Lymphocytes # 0.2 k/uL (1.0-4.8) L 06/29/17 14:01 Monocytes # 0.3 k/uL (0-1.0) 06/29/17 14:01 Eosinophils # 0.0 k/uL (0-0.7) 06/29/17 14:01 Basophils # 0.0 k/uL (0-0.2) 06/29/17 14:01 Hypochromasia Slight 06/29/17 14:01 Poikilocytosis Slight 06/29/17 14:01 Anisocytosis Slight 06/29/17 14:01 PT 10.3 sec (9.0-12.0) 06/27/17 10:00 INR 1.1 (<1.2) 06/27/17 10:00 APTT 43.0 sec (22.0-30.0) H 06/28/17 20:10 D-Dimer 4.31 mg/L FEU (<0.60) H 06/27/17 10:00 Sodium 136 mmol/L (137-145) L 06/29/17 14:01 Potassium 5.0 mmol/L (3.5-5.1) 06/29/17 14:01 Chloride 94 mmol/L (98-107) L 06/29/17 14:01 Carbon Dioxide 30 mmol/L (22-30) 06/29/17 14:01 Anion Gap 12 mmol/L 06/29/17 14:01 BUN 43 mg/dL (9-20) H 06/29/17 14:01 Creatinine 1.30 mg/dL (0.66-1.25) H 06/29/17 14:01 Est GFR (CKD-EPI)AfAm 62 (>60 ml/min/1.73 sqM) 06/29/17 14:01 Est GFR (CKD-EPI)NonAf 54 (>60 ml/min/1.73 sqM) 06/29/17 14:01 Glucose 208 mg/dL (74-99) H 06/29/17 14:01 Plasma Lactic Acid [place] 1.0 mmol/L (0.7-2.0) 06/27/17 10:00 Calcium 9.1 mg/dL (8.4-10.2) 06/29/17 14:01 Magnesium 1.7 mg/dL (1.6-2.3) 06/27/17 10:00 Total Bilirubin 0.5 mg/dL (0.2-1.3) 06/29/17 14:01 AST 70 U/L (17-59) H 06/29/17 14:01 ALT 32 U/L (21-72) 06/29/17 14:01 Alkaline Phosphatase 50 U/L (38-126) 06/29/17 14:01 Total Creatine Kinase <20 U/L (55-170) L 06/27/17 21:54 CK-MB (CK-2) 0.7 ng/mL (0.0-2.4) 06/27/17 21:54 CK-MB (CK-2) Rel Index 06/27/17 21:54 Troponin I 0.114 ng/mL (0.000-0.034) H* 06/27/17 21:54 NT-Pro-B Natriuret Pep 5350 pg/mL 06/27/17 10:00 Total Protein 6.0 g/dL (6.3-8.2) L 06/29/17 14:01 Albumin 3.2 g/dL (3.5-5.0) L 06/29/17 14:01 Triglycerides 67 mg/dL (<150) 06/28/17 02:27 Cholesterol 132 mg/dL (<200) 06/28/17 02:27 LDL Cholesterol, Calc 67 mg/dL (0-99) 06/28/17 02:27 HDL Cholesterol 52 mg/dL (40-60) 06/28/17 02:27 Urine Color Colorless 06/27/17 14:00 Urine Appearance Clear (Clear) 06/27/17 14:00 Urine pH 7.0 (5.0-8.0) 06/27/17 14:00 Ur Specific [place] 1.004 (1.001-1.035) 06/27/17 14:00 Urine Protein Negative (Negative) 06/27/17 14:00 Urine Glucose (UA) Negative (Negative) 06/27/17 14:00 Urine Ketones Negative (Negative) 06/27/17 14:00 Urine Blood Negative (Negative) 06/27/17 14:00 Urine Nitrite Negative (Negative) 06/27/17 14:00 Urine Bilirubin Negative (Negative) 06/27/17 14:00 Urine Urobilinogen <2.0 mg/dL (<2.0) 06/27/17 14:00 Ur Leukocyte Esterase Negative (Negative) 06/27/17 14:00 Microbiology 06/27/17 10:00 Blood Blood Culture - Preliminary No Growth after 48 hours Assessment and Plan (1) Elevated brain natriuretic peptide (BNP) level Current Visit: Yes Status: Acute Code(s): R79.89 - OTHER SPECIFIED ABNORMAL FINDINGS OF BLOOD CHEMISTRY SNOMED Code(s): 532019253 (2) Right-sided heart failure Current Visit: Yes Status: Acute Code(s): I50.810 - RIGHT HEART FAILURE, UNSPECIFIED SNOMED Code(s): 192797627 (3) History of ITP Current Visit: Yes Status: Acute Code(s): Z86.2 - PRSNL HISTORY OF DIS OF THE BLD/BLD-FORM ORG/[facility] SNOMED Code(s): 236464807 (4) Complication of aortic graft Narrative/Plan: Very pleasant 76-year-old male presents to Hospital significant shortness of breath and increasing weakness over the 2-3 days before coming to hospital. He thought maybe is having some reflux but realized that he was feeling much more poorly he was having some difficulties with some sputum production But it was not changed in its color. His shortness of breath was markedly worsened and constantly presented to Hospital. As noted he has significant underlying comorbidities that include history of aortic insufficiency and underlying cardiac disease. He does have ITP and his steroid doses have been recently decreased. Would consider stress dose of hydrocortisone with the current situation. The patient does have a history of the great difficulties with the aortobifemoral graft that had to be replaced if the time of an extensive abdominal surgery and has been on chronic suppressive antibiotic therapy since that time. He follows at [facility] and relates that he is on ciprofloxacin and amoxicillin lifelong. These will be continued during this stay. It appears the patient is having difficulty with right-sided heart failure and is being treated for this with some improvement. As far as his ITP as per the count appears to be adequate this time and he has no evidence of bleeding. Cardiology intervention is in process with concerns with the elevated troponins to underlying cardiac event also precipitating the current series of events. 06/29/2017 the patient continues to have ongoing symptoms of shortness of breath and fatigue. Because of this he has been seen and there is now plans for repeat cardiac catheterization because of his significant history , and concerns that current symptom artery disease. The patient explored to evaluation. Continue his ciprofloxacin and ampicillin as before, No other new infections are seen Current Visit: Yes Status: Acute Code(s): T82.9XXA - UNSP COMP OF CARDIAC AND VASCULAR PROSTH DEV/GRFT, INIT SNOMED Code(s): 973060574
--- NOTE | 2017-06-29 22:21 | CONS ---
CONSULTATION DATE OF CONSULTATION: 06/29/2017 REASON FOR CONSULTATION: Bleeding from the right ear. HISTORY OF PRESENT ILLNESS: This patient is a very pleasant 76-year-old male who was admitted via the [facility] on 06/27/2017 for evaluation of possible acute myocardial infarction. Apparently the patient's cardiac enzymes were quite elevated and it was felt that he had possibly experienced a myocardial infarction. He was subsequently heparinized according to the usual protocol. However, last p.m. (06/28/2017) the patient states that he developed bleeding from his right ear. He has never had any similar problem. He states that he has had previous surgery on the ear, namely resection of an acoustic neuroma. This procedure is generally done with a postauricular approach and therefore does not affect the ear canal itself. The patient denies having had any middle ear surgery or any mastoid surgery. 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 The patient wears a hearing aid in his left ear. Once the nurses notified the primary care doctors that the patient was bleeding from the right ear, the heparin was canceled and almost immediately the patient's bleeding ceased. He is not complaining of any pain in the ear and he has not had any further bleeding since his heparin was stopped late last night or early this morning. ALLERGIES: DILLON INHIBITORS. CURRENT MEDICATIONS: 1. Coreg. 2. Prednisone. 3. Cymbalta. 4. Albuterol. 5. Spiriva. 6. Cipro. 7. Augmentin. 8. Simvastatin. 9. Synthroid. REVIEW OF SYSTEMS: CARDIOVASCULAR SYSTEM: Positive for ASHD and hypertension. RESPIRATORY SYSTEM: Positive for COPD/emphysema. Metabolic/endocrine system is positive for hypercholesterolemia and hypothyroidism. The remainder of the review of systems is unremarkable. PHYSICAL EXAMINATION: This patient is a pleasant 76-year-old male who is alert, cooperative and is in no acute distress. HEENT EXAMINATION: Patient is normocephalic. Examination of the left ear reveals the left tympanic membrane, middle ear space and external auditory canal all normal and free of any evidence of any infection, bleeding or fluid. Examination the patient's right ear reveals that there is no active bleeding. However, there appears to be significant granulation tissue on the floor of the right external auditory canal. The right tympanic membrane appears to be intact and there is no obvious evidence of any perforation. It is interesting to note that the patient states that over the years he has noted that the right ear has drained a purulent material off and on but has never bled before. Pupils are equal, round and reactive to light and accommodation. Extraocular movements are within normal limits. Intranasal examination reveals severe septal deviation to the left with bilateral compensatory hypertrophy of the inferior turbinates. Examination of the oropharynx is unremarkable. Palpation of the neck, cranial nerves 2 through 12 with the exception of the right eighth cranial nerve, are all within normal limits. The right eighth cranial nerve (the acoustic nerve) is non-functioning secondary to his acoustic neuroma surgery. The remainder of the head and neck exam is unremarkable. CHEST/CARDIOVASCULAR: Both lung mario are clear to percussion and auscultation. Lung sounds are slightly distant, but there is no evidence of any wheezes, rales or rhonchi. The patient is in regular sinus rhythm. S1, S2 are present without evidence of any murmurs, S3s or S4s. ABDOMEN: There is no evident masses, megaly or tenderness. Abdomen is soft. Skin is unremarkable. The remainder of the physical exam is essentially unremarkable. IMPRESSION: Right aural bleeding secondary to granulation tissue in the right external auditory canal. Etiology of the granulation tissue? PLAN: I discussed with the patient the fact that I would like to see him in my office after he is discharged so that I can better examine his ear and at that time decide whether the granulation tissue needs to be biopsied or whether I can simply cauterize it with a silver nitrate stick in the office. If I feel it needs to be cauterized, then the patient would at some point be taken to surgery, and under IV sedation this could be biopsied and then cauterized with electricity, assuming that it was felt that cauterization by silver nitrate would not be effective. Another option would be for me to put the patient on an otic steroid drop. All of his questions were answered and he will make an appointment or the nurses will make an appointment at the time of his discharge. I believe that as long as the patient is not on heparin, he will not have any further problems with any bleeding from his right ear. I suspect that one of the other anticoagulants such as Plavix, etc. would most likely not cause a similar response, that is to say, bleeding from the right ear. In addition to this, I think that it would probably be okay for this patient to be on a baby aspirin if it is required. I want to take this opportunity to thank you for allowing me to participate in the care of your patient. If I can be of any further assistance, please feel free to call my office. Please note that I left one of my business cards in the patient's chart so that either he or the nursing staff may call my office to make an appointment for him to be seen once he is discharged. JAROD / CHRISTI: [phone] /
[2017-06-30] MEDS: NITROGLYCERIN OINT 1 INCH/GM PACKET TOPICAL SCH ×5 (00:09→23:15)
[2017-06-30] MEDS: LEVOTHYROXINE 75 MCG TAB PO SCH (06:16)
[2017-06-30] MEDS: CARVEDILOL 12.5 MG TAB PO SCH ×2 (06:16→15:40)
[2017-06-30 07:36] LABS: Anisocytosis Slight; Basophils % (A) 0 %; Eosinophils # (A) 0.1 k/uL (0-0.7); Eosinophils % (A) 1 %; HCT 37.1 % (39.0-53.0); HGB 12.8 gm/dL (13.0-17.5); Hypochromasia Slight; Lymphocytes # (A) 0.5 k/uL (1.0-4.8); Lymphocytes % (A) 7 %; MCH 32.4 pg (25.0-35.0); MCHC 34.4 g/dL (31.0-37.0); MCV 94.2 fL (80.0-100.0); Mean Platelet Volume 8.7; Monocytes # (A) 0.3 k/uL (0-1.0); Monocytes % (A) 4 %; Neutrophils # (A) 5.9 k/uL (1.3-7.7); Neutrophils % (A) 87 %; Poikilocytosis Slight; RBC 3.94 m/uL (4.30-5.90); RDW 17.4 % (11.5-15.5); WBC 6.8 k/uL (3.8-10.6)
[2017-06-30 07:40] LABS: Albumin 2.8 g/dL (3.5-5.0); Calcium 8.5 mg/dL (8.4-10.2); Potassium 4.5 mmol/L (3.5-5.1); Total Bilirubin 0.5 mg/dL (0.2-1.3); Total Protein 5.3 g/dL (6.3-8.2)
[2017-06-30] MEDS: SYMBICORT 160-4.5 MCG INHALER INHALATION SCH ×2 (07:54→20:53)
[2017-06-30] MEDS: guaiFENesin 600 MG TABLET.ER PO SCH ×2 (08:01→19:54)
[2017-06-30] MEDS: CIPROFLOXACIN HCL 500 MG TAB PO SCH ×2 (08:01→19:54)
[2017-06-30] MEDS: AMOXICILLIN 875 MG TAB PO SCH ×2 (08:01→19:54)
[2017-06-30] MEDS: ASPIRIN 81 MG PO SCH (08:02)
[2017-06-30] MEDS: FUROSEMIDE 40 MG TAB PO SCH (08:02)
[2017-06-30] MEDS: LOSARTAN 25 MG TAB PO SCH (08:02)
[2017-06-30] MEDS: TAMSULOSIN 0.4 MG CAP.ER.24H PO SCH (08:02)
[2017-06-30] MEDS: MULTIVITAMINS, THERA 1 EACH TAB PO SCH (08:02)
[2017-06-30] MEDS: predniSONE 20 MG TAB PO SCH (08:03)
[2017-06-30] MEDS: SODIUM CHLORIDE 0.9% 1,000 ML IV SCH (08:04)
[2017-06-30] MEDS ORDERED: ASPIRIN 325 MG TAB PO STA (08:28)
[2017-06-30] MEDS ORDERED: ALPRAZolam 0.25 MG TAB PO PRN (08:28)
[2017-06-30] MEDS ORDERED: SODIUM CHLORIDE 0.9% 1,000 ML in EMPTY BAG 1 BAG IV ONE (08:28)
[2017-06-30] MEDS ORDERED: NITROGLYCERIN SL TABS 0.4 MG TAB SUBLINGUAL PRN (08:28)
[2017-06-30] MEDS ORDERED: ALPRAZolam 0.5 MG TAB PO PRN (08:28)
[2017-06-30] MEDS ORDERED: ATORVASTATIN 80 MG TAB PO STA (08:28)
[2017-06-30] MEDS: IPRATROPIUM-ALBUTEROL 3 ML NEB INHALATION SCH ×4 (08:46→20:54)
[2017-06-30 08:58] LABS: Platelet Count 81 k/uL (150-450)
--- NOTE | 2017-06-30 11:00 | P.PN ---
Subjective Progress Note Date: 06/30/17 Patient reports feeling much more comfortable and that his breathing is much better today, patient sitting up in the bed, reports that he's been up into the bathroom. Patient reports he had a rough night reports increased stressed G- tube provider informing him that his kidney was not working. Patient reassured that his kidney function is normal, acute events overnight Objective - Vital Signs Vital signs: Vital Signs Temp 96.4 F L 06/30/17 07:50 Pulse 87 06/30/17 08:00 Resp 16 06/30/17 08:00 BP 127/70 06/30/17 07:50 Pulse Ox 93 L 06/30/17 07:50 Intake & Output 06/29/17 06/30/17 06/30/17 18:59 06:59 18:59 Intake Total 720 480 240 Output Total 300 300 Balance 420 180 240 Weight 71.5 kg 70 kg Intake: Oral 720 480 240 Output: Urine 300 300 Other: Voiding Method Urinal Urinal # Voids 2 0 - Exam Constitutional: No acute distress, conversant, pleasant Eyes: Anicteric sclerae, moist conjunctiva, no lid-lag, PERRLA ENMT: NC/AT,Oropharynx clear, no erythema, exudates Neck:Supple, FROM, no masses, or JVD, No carotid bruits; No thyromegaly Lungs: Clear to auscultation Clear to percussion, Normal respiratory effort, no accessory muscle use Cardiovascular: Heart regular in rate and rhythm, No murmurs, gallops, or rubs no peripheral edema Abdominal: Soft Nontender, nom distended, no guarding, no rebound or rigidity, Normoactive bowel sounds No hepatomegaly, No splenomegaly, No palpable mass No abdominal wall hernia noted Skin: Normal temperature, tone, texture, turgor, No induration No subcutaneous nodules, No rash, lesions, No ulcers Extremities:No digital cyanosis No clubbing, Pedal pulses intact and symmetrical Radial pulses intact and symmetrical Normal gait and station, No calf tenderness Psychiatric: Alert and oriented to person, place and time, Appropriate affect Intact judgement Neuro: Muscles Strength 5/5 in all 4 extremities, Sensation to light touch grossly present throughout, Cranial nerves II-XII grossly intact. No focal sensory deficits - Labs CBC & Chem 7: 06/30/17 06:54 06/30/17 06:54 Labs: Abnormal Lab Results - Last 24 Hours (Table) 06/29/17 06/29/17 06/30/17 Range/Units 14:01 14:01 06:54 RBC 3.94 L (4.30-5.90) m/uL Hgb 12.8 L (13.0-17.5) gm/dL Hct 37.1 L (39.0-53.0) % RDW 16.9 H 17.4 H (11.5-15.5) % Plt Count 102 L 81 L (150-450) k/uL Neutrophils # 9.9 H (1.3-7.7) k/uL Lymphocytes # 0.2 L 0.5 L (1.0-4.8) k/uL Sodium 136 L (137-145) mmol/L Chloride 94 L (98-107) mmol/L Carbon Dioxide (22-30) mmol/L BUN 43 H (9-20) mg/dL Creatinine 1.30 H (0.66-1.25) mg/dL Glucose 208 H (74-99) mg/dL AST 70 H (17-59) U/L Total Protein 6.0 L (6.3-8.2) g/dL Albumin 3.2 L (3.5-5.0) g/dL 06/30/17 Range/Units 06:54 RBC (4.30-5.90) m/uL Hgb (13.0-17.5) gm/dL Hct (39.0-53.0) % RDW (11.5-15.5) % Plt Count (150-450) k/uL Neutrophils # (1.3-7.7) k/uL Lymphocytes # (1.0-4.8) k/uL Sodium 135 L (137-145) mmol/L Chloride 97 L (98-107) mmol/L Carbon Dioxide 31 H (22-30) mmol/L BUN 41 H (9-20) mg/dL Creatinine (0.66-1.25) mg/dL Glucose (74-99) mg/dL AST 63 H (17-59) U/L Total Protein 5.3 L (6.3-8.2) g/dL Albumin 2.8 L (3.5-5.0) g/dL Microbiology - Last 24 Hours (Table) 06/27/17 10:00 Blood Culture - Preliminary Blood No Growth after 48 hours Assessment and Plan (1) Right-sided heart failure Narrative/Plan: * Right sided heart failure exacerbation, with pulmonary artery hypertension seen on echocardiogram with normal ejection fraction of 50-55% * CTA of the chest negative for PE, consistent with pulmonary hypertension along with end-stage lung disease COPD and interstitial lung disease * Hypervolemic lung exam will continue Lasix 40 mg by mouth daily, DC IV fluids * Awaiting cardiology recommendations Current Visit: Yes Status: Acute Code(s): I50.810 - RIGHT HEART FAILURE, UNSPECIFIED SNOMED Code(s): 866304517 (2) Elevated troponin Narrative/Plan: * Likely stage II non-ST elevation AL secondary to demand ischemia * Cardiology planning a heart catheterization tomorrow Current Visit: Yes Status: Acute Code(s): R74.8 - ABNORMAL LEVELS OF OTHER SERUM ENZYMES SNOMED Code(s): 605524640 (3) Dyspnea on exertion Narrative/Plan: * We'll continue with supplemental oxygen and continue to monitor * Multifactorial secondary to right-sided heart failure superimposed on end- stage lung disease, ILD and COPD with emphysema * Awaiting pulmonary recommendations Current Visit: Yes Status: Acute Code(s): R06.09 - OTHER FORMS OF DYSPNEA SNOMED Code(s): 46060455 (4) Interstitial lung disease Current Visit: Yes Status: Acute Code(s): J84.9 - INTERSTITIAL PULMONARY DISEASE, UNSPECIFIED SNOMED Code(s): 641840344 (5) COPD with emphysema Current Visit: Yes Status: Acute Code(s): J43.9 - EMPHYSEMA, UNSPECIFIED SNOMED Code(s): 16338578 (6) Pulmonary hypertension Current Visit: Yes Status: Acute Code(s): I27.20 - PULMONARY HYPERTENSION, UNSPECIFIED SNOMED Code(s): 61685335 (7) History of ITP Narrative/Plan: * Resume prednisone 20 mg by mouth daily Current Visit: Yes Status: Acute Code(s): Z86.2 - PRSNL HISTORY OF DIS OF THE BLD/BLD-FORM ORG/IMMUN [facility] SNOMED Code(s): 199431208
--- NOTE | 2017-06-30 11:03 | P.PN ---
Subjective Progress Note Date: 06/30/17 Principal diagnosis: Shortness of breath and weakness Progress note dated 06/29/2017 This is a 76-year-old male seen by my partner yesterday in consultation. He has a well-established history of interstitial pulmonary fibrosis. Is being followed by an outside stopper maker from [facility]. The patient is not on any specific treatment for his idiopathic pulmonary fibrosis at this time. The patient is on chronic prednisone therapy for his idiopathic thrombocytopenic purpura. The patient apparently presented with shortness of breath as well as some weakness. He is thought to have some biventricular heart failure as well. There is also some concern about a non-ST segment elevation myocardial infarction and a catheterization is contemplated. As I mentioned he does have a history of ITP for which he is on chronic prednisone therapy. 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 Progress note dated 06/30/2017 76-year-old male seen by my partner over the weekend in consultation. The patient does have a history of interstitial lung disease in the form of pulmonary fibrosis. He sees an outside operator and truck driver for this from [facility]. His diagnosis is apparently idiopathic pulmonary fibrosis. He is on chronic prednisone therapy not for his lung problem before his idiopathic thrombocytopenic purpura. The patient presented with shortness of breath as well as some weakness. He was found have some biventricular heart failure. There was also concern for non-ST segment elevation myocardial infarction and a catheterization will be done today or tomorrow. The patient does have a history of IPF, ITP, and multiple other medical problems including a liter leaky aortic valve deafness and CVA. The patient seems be doing relatively well today. Objective - Vital Signs Vital signs: Vital Signs Temp 96.4 F L 06/30/17 07:50 Pulse 87 06/30/17 08:00 Resp 16 06/30/17 08:00 BP 127/70 06/30/17 07:50 Pulse Ox 93 L 06/30/17 07:50 Intake & Output 06/29/17 06/30/17 06/30/17 18:59 06:59 18:59 Intake Total 720 480 240 Output Total 300 300 Balance 420 180 240 Weight 71.5 kg 70 kg Intake: Oral 720 480 240 Output: Urine 300 300 Other: Voiding Method Urinal Urinal # Voids 2 0 - Exam No acute distress, oriented 3. Nasal O2 in place. HEENT examination is grossly unremarkable. Mucous membranes are moist. No oral lesions. Neck supple. Full range of motion. No adenopathy thyromegaly or neck vein distention. Cardiovascular examination reveals regular rhythm rate. S1-S2 normal. No S3 or S4. Soft heart murmur is appreciated. Lungs reveal bibasilar Velcro crackles. Breath sounds are diminished. Mild restriction in his breathing. No rhonchi or wheezes.. Abdomen soft bowel sounds are heard. No masses or tenderness. Extremities are intact. Slight edema is noted. Skin is without rash or lesion. Neurologic examination is brief but nonfocal. - Labs CBC & Chem 7: 06/30/17 06:54 06/30/17 06:54 Labs: Abnormal Lab Results - Last 24 Hours (Table) 06/29/17 06/29/17 06/30/17 Range/Units 14:01 14:01 06:54 RBC 3.94 L (4.30-5.90) m/uL Hgb 12.8 L (13.0-17.5) gm/dL Hct 37.1 L (39.0-53.0) % RDW 16.9 H 17.4 H (11.5-15.5) % Plt Count 102 L 81 L (150-450) k/uL Neutrophils # 9.9 H (1.3-7.7) k/uL Lymphocytes # 0.2 L 0.5 L (1.0-4.8) k/uL Sodium 136 L (137-145) mmol/L Chloride 94 L (98-107) mmol/L Carbon Dioxide (22-30) mmol/L BUN 43 H (9-20) mg/dL Creatinine 1.30 H (0.66-1.25) mg/dL Glucose 208 H (74-99) mg/dL AST 70 H (17-59) U/L Total Protein 6.0 L (6.3-8.2) g/dL Albumin 3.2 L (3.5-5.0) g/dL 06/30/17 Range/Units 06:54 RBC (4.30-5.90) m/uL Hgb (13.0-17.5) gm/dL Hct (39.0-53.0) % RDW (11.5-15.5) % Plt Count (150-450) k/uL Neutrophils # (1.3-7.7) k/uL Lymphocytes # (1.0-4.8) k/uL Sodium 135 L (137-145) mmol/L Chloride 97 L (98-107) mmol/L Carbon Dioxide 31 H (22-30) mmol/L BUN 41 H (9-20) mg/dL Creatinine (0.66-1.25) mg/dL Glucose (74-99) mg/dL AST 63 H (17-59) U/L Total Protein 5.3 L (6.3-8.2) g/dL Albumin 2.8 L (3.5-5.0) g/dL Microbiology - Last 24 Hours (Table) 06/27/17 10:00 Blood Culture - Preliminary Blood No Growth after 48 hours Assessment and Plan Assessment: Assessment Acute shortness of breath, multifactorial, in part related to idiopathic pulmonary fibrosis, possible COPD/tracheobronchitis, and mild interstitial edema from systolic CHF. Biventricular heart failure. Possible non-ST segment elevation myocardial infarction ITP, currently on chronic prednisone therapy. Previous history of aortic aneurysm repair Valvular heart disease Rule out coronary artery disease. Plan: Plan dated 06/29/2017 The patient is apparently going to have a heart catheterization tomorrow. Additional recommendations and suggestions are forthcoming. We'll continue to follow. Medications labs and x-rays are all reviewed. He receives an outside operator and truck driver for his idiopathic pulmonary fibrosis. Plan dated 06/30/2017 The patient's labs x-rays a medications are all reviewed. The patient apparently is going to have a cardiac catheterization tomorrow. No discharge recommendations are made. We'll continue to follow. He'll definitely need follow-up with his own operator and truck driver post discharge. Time with Patient: Less than 30
--- NOTE | 2017-06-30 15:42 | P.PN ---
Subjective Progress Note Date: 06/30/17 This is a 76-year-old gentleman with history of interstitial lung disease, aortic regurgitation and also abdominal aortic aneurysm who presented to the emergency room with complaints of increasing shortness of breath, fatigue and weakness. He was also having some cough. He complained of occasional chest discomfort like a gas is feeling in the lower chest area. These are brief and lasting about 5 minutes. A chest x-ray and computed tomography scan were consistent with pulmonary fibrosis and interstitial lung disease. Echocardiogram showed near normal LV function with evidence of pulmonary hypertension and moderate aortic regurgitation. He also has an ascending aortic aneurysm measuring about 4.7 cm. Computed tomography scan did not reveal any evidence of dissection. Patient is being treated with antibiotics and steroids and feeling slightly better. His troponin values are elevated but they're not consistent with definitive myocardial infarction. However underlying ischemic heart disease cannot be excluded. I'll continue to maximize medical therapy. I will discuss with Dr. HARLEEN Mcghee who follows him regularly, regarding possible cardiac catheterization. His proBNP is also elevated 06/29/2017 Patient was seen and examined this morning, he appears to be a little anxious, he is wondering whether or not Dr. Mcghee as can to do a heart catheterization on him. Dr. Mitchell did speak with Dr. HARLEEN Mcghee today who felt that medical therapy would be the best. Blood pressure and heart rate stable today. White blood cell count 10.4, hemoglobin 13.6, platelet count 102. Sodium 136 , potassium 5.0, BUN 43, creatinine 1.3. 06/30/2017 Patient was seen and examined this morning, denies any further chest discomfort , breathing overall stable. Dr. Christoph Mcghee did come and last evening and had a discussion with the patient, he will be scheduled to undergo cardiac catheterization tomorrow morning. The risks and benefits were explained to the patient in detail. His creatinine today is 1.2. Objective - Vital Signs Vital signs: Vital Signs Temp 97.0 F L 06/30/17 11:15 Pulse 84 06/30/17 11:40 Resp 18 06/30/17 11:15 BP 137/78 06/30/17 11:15 Pulse Ox 93 L 06/30/17 11:15 Intake & Output 06/29/17 06/30/17 06/30/17 18:59 06:59 18:59 Intake Total 720 480 480 Output Total 300 300 900 Balance 420 180 -420 Weight 71.5 kg 70 kg Intake: Oral 720 480 480 Output: Urine 300 300 900 Other: Voiding Method Urinal Urinal # Voids 2 0 - Exam PHYSICAL EXAMINATION: HEENT: Head is atraumatic, normocephalic. Pupils equal, round. Neck is supple. There is no elevated jugular venous pressure. HEART EXAMINATION: Heart S1, S2 normal. No murmur or gallop heard. CHEST EXAMINATION: Lungs are clear to auscultation and precussion. No chest wall tenderness is noted on palpation or with deep breathing. ABDOMEN: Soft, nontender. Bowel sounds are heard. No organomegaly noted. EXTREMITIES: 2+ peripheral pulses with no evidence of peripheral edema and no calf tenderness noted. NEUROLOGIC patient is awake, alert and oriented -3. . - Labs CBC & Chem 7: 06/30/17 06:54 06/30/17 06:54 Labs: Abnormal Lab Results - Last 24 Hours (Table) 06/30/17 06/30/17 Range/Units 06:54 06:54 RBC 3.94 L (4.30-5.90) m/uL Hgb 12.8 L (13.0-17.5) gm/dL Hct 37.1 L (39.0-53.0) % RDW 17.4 H (11.5-15.5) % Plt Count 81 L (150-450) k/uL Lymphocytes # 0.5 L (1.0-4.8) k/uL Sodium 135 L (137-145) mmol/L Chloride 97 L (98-107) mmol/L Carbon Dioxide 31 H (22-30) mmol/L BUN 41 H (9-20) mg/dL AST 63 H (17-59) U/L Total Protein 5.3 L (6.3-8.2) g/dL Albumin 2.8 L (3.5-5.0) g/dL Microbiology - Last 24 Hours (Table) 06/27/17 10:00 Blood Culture - Preliminary Blood No Growth after 72 hours Assessment and Plan Plan: Assessment and plan #1 shortness of breath, likely secondary to COPD and tracheobronchitis, mild systolic congestive heart failure acute on chronic #2 abnormal troponins, not consistent with myocardial infarction, however underlying ischemic heart disease cannot be excluded. The decision was made to maximize medical therapy, Dr. Mitchell did speak with Dr. Christoph Mcghee regarding this. #3 ITP, currently on prednisone therapy #4 history of aortic aneurysm repair #5 TIA #6 hyperlipidemia #7 hypothyroidism #8 history of atrophic left kidney Plan From cardiology's perspective, patient will be scheduled to undergo cardiac catheterization tomorrow with Dr. Chirstoph Mcghee at 7:15 in the morning, and the benefits were explained to the patient in detail and he is willing to proceed. DNP note has been reviewed, I agree with a documented findings and plan of care. Patient was seen and examined.
[2017-06-30] MEDS: MELATONIN 5 MG TABLET PO SCH (19:54)
[2017-06-30] MEDS: ACETAMINOPHEN TAB 500 MG TAB PO SCH (19:57)
[2017-06-30] MEDS: diphenhydrAMINE 25 MG CAP PO SCH (19:57)
[2017-07-01] MEDS: IPRATROPIUM-ALBUTEROL 3 ML NEB INHALATION SCH ×6 (00:39→20:08)
[2017-07-01] MEDS ORDERED: SODIUM CHLORIDE 0.9% 1,000 ML IV SCH ×2 (04:00→16:00)
[2017-07-01] MEDS ORDERED: ASPIRIN 325 MG TAB PO ONE (06:00)
[2017-07-01] MEDS ORDERED: ATORVASTATIN 80 MG TAB PO ONE (06:00)
[2017-07-01] MEDS: CIPROFLOXACIN HCL 500 MG TAB PO SCH ×2 (06:13→21:16)
[2017-07-01] MEDS: LEVOTHYROXINE 75 MCG TAB PO SCH (06:13)
[2017-07-01] MEDS: AMOXICILLIN 875 MG TAB PO SCH ×2 (06:14→21:16)
[2017-07-01] MEDS: CARVEDILOL 12.5 MG TAB PO SCH ×2 (06:14→17:43)
[2017-07-01] MEDS: predniSONE 20 MG TAB PO SCH (06:15)
[2017-07-01] MEDS: LOSARTAN 25 MG TAB PO SCH (06:15)
[2017-07-01] MEDS: NITROGLYCERIN OINT 1 INCH/GM PACKET TOPICAL SCH ×4 (06:15→23:44)
[2017-07-01] MEDS: TAMSULOSIN 0.4 MG CAP.ER.24H PO SCH (06:15)
[2017-07-01] MEDS: ASPIRIN 81 MG PO SCH (06:20)
[2017-07-01 06:47] LABS: Anisocytosis Slight; Basophils % (A) 0 %; Eosinophils # (A) 0.2 k/uL (0-0.7); Eosinophils % (A) 3 %; HCT 38.3 % (39.0-53.0); HGB 12.9 gm/dL (13.0-17.5); Lymphocytes # (A) 0.4 k/uL (1.0-4.8); Lymphocytes % (A) 7 %; MCH 31.6 pg (25.0-35.0); MCHC 33.7 g/dL (31.0-37.0); MCV 93.9 fL (80.0-100.0); Mean Platelet Volume 8.4; Monocytes # (A) 0.2 k/uL (0-1.0); Monocytes % (A) 4 %; Neutrophils # (A) 4.6 k/uL (1.3-7.7); Neutrophils % (A) 85 %; Poikilocytosis Slight; RBC 4.08 m/uL (4.30-5.90); RDW 16.7 % (11.5-15.5); WBC 5.5 k/uL (3.8-10.6)
[2017-07-01 06:50] LABS: Platelet Count 69 k/uL (150-450)
[2017-07-01 06:58] LABS: Albumin 2.8 g/dL (3.5-5.0); Calcium 8.8 mg/dL (8.4-10.2); Potassium 4.5 mmol/L (3.5-5.1); Total Bilirubin 0.5 mg/dL (0.2-1.3); Total Protein 5.4 g/dL (6.3-8.2)
[2017-07-01] MEDS ORDERED: IV FLUID CONTINUATION 1,000 ML IV ONE (07:15)
[2017-07-01] MEDS ORDERED: HEPARIN SODIUM 1,000 UN/ML (10ML VL) ONE (07:24)
[2017-07-01] MEDS ORDERED: diphenhydrAMINE 50 MG/ML 1 ML VIAL ONE (07:24)
[2017-07-01] MEDS ORDERED: VERAPAMIL 2.5 MG/ML 2 ML AMP ONE (07:24)
[2017-07-01] MEDS ORDERED: LIDOCAINE 2% INJ 20 MG/ML (20 ML MDV) ONE (07:24)
[2017-07-01] MEDS ORDERED: MIDAZOLAM 2 MG/2 ML VIAL ONE (07:25)
[2017-07-01] MEDS ORDERED: diphenhydrAMINE 50 MG/ML 1 ML VIAL IVP ONE (07:30)
[2017-07-01] MEDS: MIDAZOLAM 2 MG/2 ML VIAL IVP ONE ×2 (07:30→07:33)
[2017-07-01] MEDS ORDERED: LIDOCAINE 2% INJ 20 MG/ML SQ ONE (07:31)
[2017-07-01] MEDS: VERAPAMIL SYRINGE (5 MG/10 ML) INTRAARTER ONE ×2 (07:33→08:09)
[2017-07-01] MEDS ORDERED: methylPREDNISolone SOD SUCCI 125 MG/2 ML VIAL IVP ONE (07:39)
[2017-07-01] MEDS ORDERED: HEPARIN SODIUM 1,000 UN/ML (10ML VL) IV ONE (07:59)
[2017-07-01] MEDS ORDERED: IOPAMIDOL-370 100ML BTL INJ ONE (08:10)
[2017-07-01] MEDS ORDERED: RX INFO: IV CONTRAST WAS GIVEN 1 EACH MISC MISCELLANE PRN (08:22)
[2017-07-01] MEDS: SYMBICORT 160-4.5 MCG INHALER INHALATION SCH ×2 (09:03→20:08)
[2017-07-01] MEDS: guaiFENesin 600 MG TABLET.ER PO SCH ×2 (09:17→21:16)
[2017-07-01] MEDS: FUROSEMIDE 40 MG TAB PO SCH (09:18)
[2017-07-01] MEDS: SODIUM CHLORIDE 0.9% 1,000 ML IV SCH ×2 (09:20→23:26)
--- NOTE | 2017-07-01 09:46 | CC ---
CARDIAC CATHETERIZATION REPORT DATE OF SERVICE: 07/01/2017 PROCEDURE: Left heart catheterization and coronary angiography. PERFORMED BY: Dr. Anjana Mcghee. Moderate conscious sedation time was 41 minute. Patient was administered Versed and Benadryl. His oxygen saturation, hemodynamics and EKG were monitored closely. CLINICAL INFORMATION: Mr. Horacio Hernández is a 76-year-old gentleman with a known history of hypertension, hypercholesterolemia and abdominal aortic aneurysm, status post repair with redo surgery and some chronic infection involving the graft. However, he has also developed pulmonary fibrosis and his functional capacity has decreased. In 2012, I performed a cardiac cath and also a OR[place]O. At that time, he had a dilated aortic root of 4.3 cm, which was at 4.6 cm at the sinus of Valsalva, but his blood pressure has been well controlled since then and has been doing well. He presented to the hospital with episode of chest pain with precordial EKG changes and a borderline troponin elevation. CT angiography ruled out any aortic dissection or pulmonary embolism, but there was a dilatation of ascending aorta 4.7 cm. He was advised coronary angiography after due discussion. He has a single functioning kidney on the right. The left kidney is atrophic. He was hydrated and brought in for the procedure electively. PROCEDURE NOTE: Under local anesthesia and strict aseptic precautions, a 6-Guatemalan introducer was placed in the right radial artery. Using an Ultimate 2 catheter I performed selective coronary angiography of the right coronary artery, which was a dominant vessel and checked LV pressures. However, the aortic root was quite large and the left coronary artery origin was somewhat displaced. I had considerable difficulty after trying various catheters. I used a 125 cm long multipurpose A2 catheter with this I was able to get fairly decent injections. Coronary angiography of the left system was performed and following the procedure, it was noted that he did not have any critical lesions. He was advised medical therapy and the sheath was taken out and a TR band applied as per protocol. He was sent to the room in a stable condition. There were no complications and he tolerated the procedure well. Angiographically, the LAD images were not as crisp as the previous study from 2013, but there is no significant change. Coronary Angiogram Findings: This patient has a right dominant system, small circumflex no significant disease. RCA is free of significant disease other than a 30% narrowing in the midportion, distally several large disease free branches. The LAD has diffuse disease after the origin of the diagonal branches and there is about a 30% to 40% narrowing in the midportion. The angiographic appearance is pretty much unchanged compared to the previous study. Left circumflex coronary artery is a small nondominant vessel. RCA is a very dominant disease-free vessel. LVEDP was 8mm of hg with no gradient across AV. FINAL IMPRESSION: This patient has a right dominant system. No significant disease in the very dominant RCA. The LAD has diffuse disease after the origin of diagonal branches, but no critical stenosis is noted. The disease is no more than 40%. Circumflex is small and nondominant. Filling pressures are somewhat low at 8 mmHg without any gradient across the aortic valve. RECOMMENDATIONS: I am recommending aggressive continued medical therapy. The patient has multiple comorbid conditions and his ascending aortic dilatation will be followed noninvasively, but no intervention is necessary at this time. I discussed my thoughts in detail with the patient, but there was no family available. MMJOVITA / MALIKAN: [id number] / KANU
--- NOTE | 2017-07-01 09:49 | LTR ---
July 01, 2017 Re: Horacio Hernández Dear Dr. Tate; Thank you for the opportunity to participate in the care of Mr. Horacio Hernández. Please find enclosed my cardiac cath report for your records. This gentleman has no significant progression of disease compared to 2013, but his aortic root is enlarged and measures about 4.7 cm. Surgery is a high risk in this patient. We will therefore pursue medical therapy although the indication for surgery is not there at this time. I explained this to Mr. Hernández, but there was no family available. We will pursue aggressive medical therapy and risk factor modification. Thank you for your referral and please call for questions. With kindest regards. Sincerely yours, MD JAROD Roy / CHRISTI: [id number] /
--- NOTE | 2017-07-01 10:46 | P.PN ---
Subjective Progress Note Date: 07/01/17 Patient reports feeling much more comfortable and that his breathing is much better today, patient laying in bed reporting is a little bit tired since having his procedure this morning. Patient had his heart catheterization, report not available but per nursing there was no significant coronary artery disease. Objective - Vital Signs Vital signs: Vital Signs Temp 97.0 F L 07/01/17 03:31 Pulse 85 07/01/17 03:32 Resp 17 07/01/17 03:32 BP 128/73 07/01/17 03:31 Pulse Ox 96 07/01/17 03:31 Intake & Output 06/30/17 07/01/17 07/01/17 18:59 06:59 18:59 Intake Total 720 480 Output Total 900 Balance -180 480 Weight 71 kg Intake: Oral 720 480 Output: Urine 900 Other: Voiding Method Urinal Urinal # Voids 0 - Exam Constitutional: No acute distress, conversant, pleasant Eyes: Anicteric sclerae, moist conjunctiva, no lid-lag, PERRLA ENMT: NC/AT,Oropharynx clear, no erythema, exudates Neck:Supple, FROM, no masses, or JVD, No carotid bruits; No thyromegaly Lungs: Clear to auscultation Clear to percussion, Normal respiratory effort, no accessory muscle use Cardiovascular: Heart regular in rate and rhythm, No murmurs, gallops, or rubs no peripheral edema Abdominal: Soft Nontender, nom distended, no guarding, no rebound or rigidity, Normoactive bowel sounds No hepatomegaly, No splenomegaly, No palpable mass No abdominal wall hernia noted Skin: Normal temperature, tone, texture, turgor, No induration No subcutaneous nodules, No rash, lesions, No ulcers Extremities:No digital cyanosis No clubbing, Pedal pulses intact and symmetrical Radial pulses intact and symmetrical Normal gait and station, No calf tenderness Psychiatric: Alert and oriented to person, place and time, Appropriate affect Intact judgement Neuro: Muscles Strength 5/5 in all 4 extremities, Sensation to light touch grossly present throughout, Cranial nerves II-XII grossly intact. No focal sensory deficits - Labs CBC & Chem 7: 07/01/17 06:34 07/01/17 06:34 Labs: Abnormal Lab Results - Last 24 Hours (Table) 07/01/17 07/01/17 Range/Units 06:34 06:34 RBC 4.08 L (4.30-5.90) m/uL Hgb 12.9 L (13.0-17.5) gm/dL Hct 38.3 L (39.0-53.0) % RDW 16.7 H (11.5-15.5) % Plt Count 69 L (150-450) k/uL Lymphocytes # 0.4 L (1.0-4.8) k/uL Sodium 136 L (137-145) mmol/L Chloride 97 L (98-107) mmol/L Carbon Dioxide 33 H (22-30) mmol/L BUN 40 H (9-20) mg/dL AST 64 H (17-59) U/L Total Protein 5.4 L (6.3-8.2) g/dL Albumin 2.8 L (3.5-5.0) g/dL Microbiology - Last 24 Hours (Table) 06/27/17 10:00 Blood Culture - Preliminary Blood No Growth after 72 hours Assessment and Plan (1) Right-sided heart failure Narrative/Plan: * Right sided heart failure exacerbation, with pulmonary artery hypertension seen on echocardiogram with normal ejection fraction of 50-55% * CTA of the chest negative for PE, consistent with pulmonary hypertension along with end-stage lung disease COPD and interstitial lung disease * Patient now euvolemic, non-diuretics today * Appreciate cardiology recommendations Current Visit: Yes Status: Acute Code(s): I50.810 - RIGHT HEART FAILURE, UNSPECIFIED SNOMED Code(s): 901368554 (2) Elevated troponin Narrative/Plan: * Likely stage II non-ST elevation OR secondary to demand ischemia * Per cardiology no significant coronary artery disease Current Visit: Yes Status: Acute Code(s): R74.8 - ABNORMAL LEVELS OF OTHER SERUM ENZYMES SNOMED Code(s): 903280843 (3) Dyspnea on exertion Narrative/Plan: * We'll continue with supplemental oxygen and continue to monitor * Multifactorial secondary to right-sided heart failure superimposed on end- stage lung disease, ILD and COPD with emphysema * Appreciated pulmonary recommendations Current Visit: Yes Status: Acute Code(s): R06.09 - OTHER FORMS OF DYSPNEA SNOMED Code(s): 76984801 (4) Interstitial lung disease Current Visit: Yes Status: Acute Code(s): J84.9 - INTERSTITIAL PULMONARY DISEASE, UNSPECIFIED SNOMED Code(s): 396978155 (5) COPD with emphysema Current Visit: Yes Status: Acute Code(s): J43.9 - EMPHYSEMA, UNSPECIFIED SNOMED Code(s): 96751856 (6) Pulmonary hypertension Current Visit: Yes Status: Acute Code(s): I27.20 - PULMONARY HYPERTENSION, UNSPECIFIED SNOMED Code(s): 39569669 (7) History of ITP Narrative/Plan: platelets stable, continue prednisone 10 mg by mouth daily Current Visit: Yes Status: Acute Code(s): Z86.2 - PRSNL HISTORY OF DIS OF THE BLD/BLD-FORM ORG/IMMUN [facility] SNOMED Code(s): 550671141 Plan: Patient will be observed for the next 24 hours likely discharge home tomorrow
[2017-07-01] MEDS: MULTIVITAMINS, THERA 1 EACH TAB PO SCH (12:16)
[2017-07-01] MEDS: predniSONE 10 MG TAB PO SCH (12:16)
--- NOTE | 2017-07-01 13:08 | P.PN ---
Subjective Progress Note Date: 07/01/17 Principal diagnosis: Shortness of breath and weakness Progress note dated 06/29/2017 This is a 76-year-old male seen by my partner yesterday in consultation. He has a well-established history of interstitial pulmonary fibrosis. Is being followed by an outside hair boiler from [facility] and [place]. The patient is not on any specific treatment for his idiopathic pulmonary fibrosis at this time. The patient is on chronic prednisone therapy for his idiopathic thrombocytopenic purpura. The patient apparently presented with shortness of breath as well as some weakness. He is thought to have some biventricular heart failure as well. There is also some concern about a non-ST segment elevation myocardial infarction and a catheterization is contemplated. As I mentioned he does have a history of ITP for which he is on chronic prednisone therapy. 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 Progress note dated 06/30/2017 76-year-old male seen by my partner over the weekend in consultation. The patient does have a history of interstitial lung disease in the form of pulmonary fibrosis. He sees an outside fence installer foreman for this from [facility]. His diagnosis is apparently idiopathic pulmonary fibrosis. He is on chronic prednisone therapy not for his lung problem before his idiopathic thrombocytopenic purpura. The patient presented with shortness of breath as well as some weakness. He was found have some biventricular heart failure. There was also concern for non-ST segment elevation myocardial infarction and a catheterization will be done today or tomorrow. The patient does have a history of IPF, ITP, and multiple other medical problems including a liter leaky aortic valve deafness and CVA. The patient seems be doing relatively well today. Progress note dated 07/01/2017 This is a 76-year-old male seen by my partner over the weekend. He has a history of interstitial lung disease being followed by outside fence installer foreman. I believe his diagnosis is idiopathic pulmonary fibrosis. In addition, the patient's on chronic prednisone therapy not for his lung. Idiopathic thrombocytopenic purpura. The patient presented with shortness of breath. He was found to have biventricular heart failure and concern for a non-ST segment elevation myocardial infarction. The patient had a cardiac catheterization this morning. It apparently showed chronic disease in the coronary arteries but nothing new or changes that would suggest any ongoing or new issues or problems. He is happy about that. In addition, he has a history of a leaky aortic valve deafness and CVA as well as the IPF and ITP. Objective - Vital Signs Vital signs: Vital Signs Temp 97.0 F L 07/01/17 03:31 Pulse 85 07/01/17 03:32 Resp 17 07/01/17 03:32 BP 128/73 07/01/17 03:31 Pulse Ox 96 07/01/17 03:31 Intake & Output 06/30/17 07/01/17 07/01/17 18:59 06:59 18:59 Intake Total 720 480 Output Total 900 Balance -180 480 Weight 71 kg Intake: Oral 720 480 Output: Urine 900 Other: Voiding Method Urinal Urinal # Voids 0 - Exam No acute distress, oriented 3. Nasal O2 in place. HEENT examination is grossly unremarkable. Mucous membranes are moist. No oral lesions. Neck supple. Full range of motion. No adenopathy thyromegaly or neck vein distention. Cardiovascular examination reveals regular rhythm rate. S1-S2 normal. No S3 or S4. Soft heart murmur is appreciated. Lungs reveal bibasilar Velcro crackles. Breath sounds are diminished. Mild restriction in his breathing. No rhonchi or wheezes.. Abdomen soft bowel sounds are heard. No masses or tenderness. Extremities are intact. Slight edema is noted. Skin is without rash or lesion. Neurologic examination is brief but nonfocal. - Labs CBC & Chem 7: 07/01/17 06:34 07/01/17 06:34 Labs: Abnormal Lab Results - Last 24 Hours (Table) 07/01/17 07/01/17 Range/Units 06:34 06:34 RBC 4.08 L (4.30-5.90) m/uL Hgb 12.9 L (13.0-17.5) gm/dL Hct 38.3 L (39.0-53.0) % RDW 16.7 H (11.5-15.5) % Plt Count 69 L (150-450) k/uL Lymphocytes # 0.4 L (1.0-4.8) k/uL Sodium 136 L (137-145) mmol/L Chloride 97 L (98-107) mmol/L Carbon Dioxide 33 H (22-30) mmol/L BUN 40 H (9-20) mg/dL AST 64 H (17-59) U/L Total Protein 5.4 L (6.3-8.2) g/dL Albumin 2.8 L (3.5-5.0) g/dL Microbiology - Last 24 Hours (Table) 06/27/17 10:00 Blood Culture - Preliminary Blood No Growth after 96 hours Assessment and Plan Assessment: Assessment Acute shortness of breath, multifactorial, in part related to idiopathic pulmonary fibrosis, possible COPD/tracheobronchitis, and mild interstitial edema from systolic CHF. Biventricular heart failure. Possible non-ST segment elevation myocardial infarction ITP, currently on chronic prednisone therapy. Previous history of aortic aneurysm repair Valvular heart disease Rule out coronary artery disease, catheterization today on July 01 shows is chronic disease but nothing acute or no progression of disease. Plan: Plan dated 06/29/2017 The patient is apparently going to have a heart catheterization tomorrow. Additional recommendations and suggestions are forthcoming. We'll continue to follow. Medications labs and x-rays are all reviewed. He receives an outside fence installer foreman for his idiopathic pulmonary fibrosis. Plan dated 06/30/2017 The patient's labs x-rays a medications are all reviewed. The patient apparently is going to have a cardiac catheterization tomorrow. No discharge recommendations are made. We'll continue to follow. He'll definitely need follow-up with his own fence installer foreman post discharge. Plan dated 07/01/2017 The patient's doing well. From our perspective the patient could be discharged. [facility] lab the primary service to decide that. He should follow-up with his outside fence installer foreman for continued care of his idiopathic pulmonary fibrosis. He should also be placed back on his prednisone 20 mg a day prior to discharge. No additional recommendations we made. We'll see as needed. Time with Patient: Less than 30
[2017-07-01] MEDS: MELATONIN 5 MG TABLET PO SCH (23:24)
[2017-07-01] MEDS: diphenhydrAMINE 25 MG CAP PO SCH (23:25)
[2017-07-01] MEDS: ACETAMINOPHEN TAB 500 MG TAB PO SCH (23:25)
[2017-07-02] MEDS: IPRATROPIUM-ALBUTEROL 3 ML NEB INHALATION SCH ×4 (00:05→15:09)
[2017-07-02 00:33] VITALS: RESP 18
[2017-07-02] MEDS: NITROGLYCERIN OINT 1 INCH/GM PACKET TOPICAL SCH (05:16)
[2017-07-02 06:24] LABS: Anisocytosis Slight; Basophils % (A) 0 %; Eosinophils # (A) 0.1 k/uL (0-0.7); Eosinophils % (A) 1 %; HCT 35.2 % (39.0-53.0); HGB 11.7 gm/dL (13.0-17.5); Lymphocytes # (A) 0.4 k/uL (1.0-4.8); Lymphocytes % (A) 5 %; MCH 31.4 pg (25.0-35.0); MCHC 33.1 g/dL (31.0-37.0); Mean Platelet Volume 8.1; Monocytes # (A) 0.3 k/uL (0-1.0); Monocytes % (A) 3 %; Neutrophils # (A) 6.6 k/uL (1.3-7.7); Neutrophils % (A) 90 %; Poikilocytosis Slight; RBC 3.71 m/uL (4.30-5.90); RDW 16.9 % (11.5-15.5); WBC 7.4 k/uL (3.8-10.6)
[2017-07-02] MEDS: LEVOTHYROXINE 75 MCG TAB PO SCH (06:26)
[2017-07-02] MEDS: CARVEDILOL 12.5 MG TAB PO SCH (06:26)
[2017-07-02 06:27] LABS: Platelet Count 75 k/uL (150-450)
[2017-07-02 06:39] LABS: Albumin 2.6 g/dL (3.5-5.0); Calcium 8.6 mg/dL (8.4-10.2); Potassium 4.7 mmol/L (3.5-5.1); Total Bilirubin 0.3 mg/dL (0.2-1.3); Total Protein 4.9 g/dL (6.3-8.2)
[2017-07-02] MEDS: CIPROFLOXACIN HCL 500 MG TAB PO SCH (08:39)
[2017-07-02] MEDS: ASPIRIN 81 MG PO SCH (08:39)
[2017-07-02] MEDS: AMOXICILLIN 875 MG TAB PO SCH (08:39)
[2017-07-02] MEDS: FUROSEMIDE 40 MG TAB PO SCH (08:39)
[2017-07-02] MEDS: guaiFENesin 600 MG TABLET.ER PO SCH (08:39)
[2017-07-02] MEDS: TAMSULOSIN 0.4 MG CAP.ER.24H PO SCH (08:40)
[2017-07-02] MEDS: predniSONE 10 MG TAB PO SCH (08:40)
[2017-07-02] MEDS: LOSARTAN 25 MG TAB PO SCH (08:40)
[2017-07-02] MEDS ORDERED: ATORVASTATIN 80 MG TAB PO SCH (09:00)
[2017-07-02] MEDS: SYMBICORT 160-4.5 MCG INHALER INHALATION SCH (09:04)
[2017-07-02 09:50] VITALS: BP 116/69; TEMP 97
[2017-07-02 12:08] VITALS: PULSE 88
--- NOTE | 2017-07-02 13:08 | P.PN ---
Subjective Progress Note Date: 07/02/17 This is a 76-year-old gentleman with history of interstitial lung disease, aortic regurgitation and also abdominal aortic aneurysm who presented to the emergency room with complaints of increasing shortness of breath, fatigue and weakness. He was also having some cough. He complained of occasional chest discomfort like a gas is feeling in the lower chest area. These are brief and lasting about 5 minutes. A chest x-ray and computed tomography scan were consistent with pulmonary fibrosis and interstitial lung disease. Echocardiogram showed near normal LV function with evidence of pulmonary hypertension and moderate aortic regurgitation. He also has an ascending aortic aneurysm measuring about 4.7 cm. Computed tomography scan did not reveal any evidence of dissection. Patient is being treated with antibiotics and steroids and feeling slightly better. His troponin values are elevated but they're not consistent with definitive myocardial infarction. However underlying ischemic heart disease cannot be excluded. I'll continue to maximize medical therapy. I will discuss with Dr. HARLEEN Mcghee who follows him regularly, regarding possible cardiac catheterization. His proBNP is also elevated 06/29/2017 Patient was seen and examined this morning, he appears to be a little anxious, he is wondering whether or not Dr. Mcghee as can to do a heart catheterization on him. Dr. Mitchell did speak with Dr. HARLEEN Mcghee today who felt that medical therapy would be the best. Blood pressure and heart rate stable today. White blood cell count 10.4, hemoglobin 13.6, platelet count 102. Sodium 136 , potassium 5.0, BUN 43, creatinine 1.3. 06/30/2017 Patient was seen and examined this morning, denies any further chest discomfort , breathing overall stable. Dr. Christoph Mcghee did come and last evening and had a discussion with the patient, he will be scheduled to undergo cardiac catheterization tomorrow morning. The risks and benefits were explained to the patient in detail. His creatinine today is 1.2. 07/02/2017 Patient seen and examined this morning, denies any chest discomfort, breathing is stable. Creatinine 1.0 BUN 40, potassium 4.7. Cardiac catheterization performed yesterday showed a right dominant system, small circumflex with no significant disease, RCA was free of any significant disease other than a 30% narrowing in the midportion, distally several large disease-free branches. The LAD has diffuse disease after the origin of the diagonal branches and there is about a 30-40% narrowing in the midportion. The angiographic appearance is pretty much unchanged as compared with previous study. Left circumflex artery is normal nondominant vessel and the RCA is a very dominant disease-free vessel. Maximal medical therapy was advised. Objective - Vital Signs Vital signs: Vital Signs Temp 97.0 F L 07/02/17 08:00 Pulse 88 07/02/17 12:16 Resp 18 07/02/17 08:00 BP 116/69 07/02/17 08:00 Pulse Ox 99 07/02/17 08:00 Intake & Output 07/01/17 07/02/17 07/02/17 18:59 06:59 18:59 Intake Total 480 575 480 Output Total 600 800 Balance -120 -225 480 Weight 72.1 kg Intake: Intake, IV Titration 225 Amount Sodium Chloride 0.9% 1, 225 000 ml @ 75 mls/hr IV . [id number] ZOE Rx#:[id number] Oral 480 350 480 Output: Urine 600 800 Other: Voiding Method Urinal # Voids 1 - Exam PHYSICAL EXAMINATION: HEENT: Head is atraumatic, normocephalic. Pupils equal, round. Neck is supple. There is no elevated jugular venous pressure. HEART EXAMINATION: Heart S1, S2 normal. No murmur or gallop heard. CHEST EXAMINATION: Lungs are clear to auscultation and precussion. No chest wall tenderness is noted on palpation or with deep breathing. ABDOMEN: Soft, nontender. Bowel sounds are heard. No organomegaly noted. Right groin soft, no evidence of any hematoma. EXTREMITIES: 2+ peripheral pulses with no evidence of peripheral edema and no calf tenderness noted. NEUROLOGIC patient is awake, alert and oriented -3. . - Labs CBC & Chem 7: 07/02/17 06:08 07/02/17 06:08 Labs: Abnormal Lab Results - Last 24 Hours (Table) 07/02/17 07/02/17 Range/Units 06:08 06:08 RBC 3.71 L (4.30-5.90) m/uL Hgb 11.7 L (13.0-17.5) gm/dL Hct 35.2 L (39.0-53.0) % RDW 16.9 H (11.5-15.5) % Plt Count 75 L (150-450) k/uL Lymphocytes # 0.4 L (1.0-4.8) k/uL Sodium 136 L (137-145) mmol/L BUN 40 H (9-20) mg/dL Total Protein 4.9 L (6.3-8.2) g/dL Albumin 2.6 L (3.5-5.0) g/dL Microbiology - Last 24 Hours (Table) 06/27/17 10:00 Blood Culture - Preliminary Blood No Growth after 120 hours Assessment and Plan Plan: Assessment and plan #1 shortness of breath, likely secondary to COPD and tracheobronchitis, mild systolic congestive heart failure acute on chronic #2 abnormal troponins, not consistent with myocardial infarction, however underlying ischemic heart disease cannot be excluded. The decision was made to maximize medical therapy, Dr. Mitchell did speak with Dr. Christoph Mcghee regarding this. #3 ITP, currently on prednisone therapy #4 history of aortic aneurysm repair #5 TIA #6 hyperlipidemia #7 hypothyroidism #8 history of atrophic left kidney Plan Patient underwent cardiac catheterization yesterday by Dr. Christoph Mcghee, medical therapy was advised. From cardiology's perspective, patient may be able to be discharged home today. We'll make a follow-up appointment for the patient to see Dr. Christoph Mcghee in the office post discharge. From cardiology's perspective,
--- NOTE | 2017-07-02 15:15 | P.DS ---
Providers Date of admission: 06/27/17 12:40 Expected date of discharge: 07/02/17 Attending physician: Leonardo Banda MD Consults: 06/27/17 12:40 Consult Physician Urgent Consulting Provider: Krystal Mitchell Consult Reason/Comments: Non-STEMI, CHF, interstitial lung disease Do you want consulting provider notified?: Yes 06/27/17 12:55 Consult Physician Routine Consulting Provider: He Browne Consult Reason/Comments: ILD, COPD Do you want consulting provider notified?: Yes 06/27/17 13:56 Consult Physician Routine Consulting Provider: Ivan Barlow Consult Reason/Comments: fever of unknown origin Do you want consulting provider notified?: Yes 06/29/17 11:19 Consult Physician Urgent Consulting Provider: Waqas Gonzalez Consult Reason/Comments: bleeding of the right ear Do you want consulting provider notified?: Already Contacted Primary care physician: Malik Tate - Discharge Diagnosis(es) (1) Right-sided heart failure Current Visit: Yes Status: Acute (2) Elevated troponin Current Visit: Yes Status: Acute (3) Dyspnea on exertion Current Visit: Yes Status: Acute (4) Interstitial lung disease Current Visit: Yes Status: Acute (5) COPD with emphysema Current Visit: Yes Status: Acute (6) Pulmonary hypertension Current Visit: Yes Status: Acute Priority: Low (7) History of ITP Current Visit: Yes Status: Acute Hospital Course: The patient is a 76-year-old male was admitted with dyspnea found to be multifactorial etiology secondary to an acute COPD exacerbation superimposed on right-sided heart failure compounded by underlying chronic interstitial lung disease. Workup included a CTA of the chest was negative for PE, but was consistent with pulmonary hypertension end-stage lung disease, COPD with emphysema and interstitial lung disease, the patient was noted to be hypervolemic and was subsequently started on IV Lasix. The patient was noted to have elevation of his troponins and he was placed on IV heparin, cardiology was consulted and a left heart catheterization was subsequently performed which reportedly showed chronic disease in the coronary arteries but nothing new or changes that suggest any new changes or acute ischemia. It was thought that elevation was secondary to the stage II non-ST elevation DC due to demand ischemia from dyspnea. 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 The patient gradually improved and did well post-left heart catheterization and was subsequently discharged home in stable condition. Pertinent Studies: 2-D echocardiogram ejection fraction 50-55%, moderate aortic regurgitation, moderate pulmonary hypertension CTA of the chest - consistent with end-stage lung disease, emphysema, interstitial lung disease. Cardiomegaly and coronary artery disease, aortic aneurysm, atrophic left kidney, cholelithiasis. Pulmonary artery hypertension. Negative for PE Procedures: Left heart catheterization showed a right dominant system, small circumflex with no significant disease, RCA was free of any significant disease other than a 30% narrowing in the midportion, distally several large disease-free branches. The LAD has diffuse disease after the origin of the diagonal branches and there is about a 30-40% narrowing in the midportion. The angiographic appearance is pretty much unchanged as compared with previous study. Left circumflex artery is normal nondominant vessel and the RCA is a very dominant disease-free vessel. Patient Condition at Discharge: Fair Plan - Discharge Summary Discharge Rx Participant: No New Discharge Prescriptions: New Furosemide [Lasix] 40 mg PO DAILY #30 tab Continue Simvastatin [Zocor] 40 mg PO HS Carvedilol [Coreg*] 12.5 mg PO BID Levothyroxine Sodium [Synthroid] 150 mcg PO DAILY Ciprofloxacin HCl [Cipro] 500 mg PO Q12HR Amoxicillin/Potassium Clav [Augmentin 875-125 Tablet] 1 tab PO Q12HR predniSONE 20 mg PO DAILY DULoxetine HCL [Cymbalta] 30 mg PO DAILY Albuterol Sulfate [Proair Hfa] 1 - 2 puff INHALATION RT-Q6H PRN PRN Reason: Shortness Of Breath Tiotropium [place] [Spiriva Respimat] 1 puff INHALATION RT-DAILY Discharge Medication List Amoxicillin/Potassium Clav [Augmentin 875-125 Tablet] 1 tab PO Q12HR 01/04/15 [ History] Carvedilol [Coreg*] 12.5 mg PO BID 01/04/15 [History] Ciprofloxacin HCl [Cipro] 500 mg PO Q12HR 01/04/15 [History] Levothyroxine Sodium [Synthroid] 150 mcg PO DAILY 01/04/15 [History] Simvastatin [Zocor] 40 mg PO HS 01/04/15 [History] Albuterol Sulfate [Proair Hfa] 1 - 2 puff INHALATION RT-Q6H PRN 06/27/17 [ History] DULoxetine HCL [Cymbalta] 30 mg PO DAILY 06/27/17 [History] Tiotropium [place] [Spiriva Respimat] 1 puff INHALATION RT-DAILY 06/27/17 [ History] predniSONE 20 mg PO DAILY 06/27/17 [History] Furosemide [Lasix] 40 mg PO DAILY #30 tab 07/02/17 [Rx] Follow up Appointment(s)/Referral(s): Rayray Mcghee MD [STAFF PHYSICIAN] - 1 Week (Spoke to medical receptionist medical assistant. Office will call with appointment time.) Malik Tate MD [Primary Care Provider] - 07/09/17 9:45 am () Patient Instructions/Handouts: *[facility] - After Heart Catheterization - Director Specialty Instructions, Left Heart Catheterization (DC) Activity/Diet/Wound Care/Special Instructions: Follow up with your pulmonary doctor in 1-2 weeks
== END 2017-07-02 13:53 | disposition home or self-care (01) | DRG 190 ==
LOC: EC 09:49 → 6SEL 12:40
PROVIDERS: ADMIT Family Medicine; ATTEND Family Medicine
PROC: B2111ZZ Fluoroscopy of Multiple Coronary Arteries using Low Osmolar Contrast (ICD-10-PCS; principal; 2017-07-01 07:15)
PROC: 4A023N7 Measurement of Cardiac Sampling and Pressure, Left Heart, Percutaneous Approach (ICD-10-PCS; principal; 2017-07-01 07:15)
DX: J43.9 Emphysema, unspecified (principal); I21.A1 Myocardial infarction type 2; I50.23 Acute on chronic systolic (congestive) heart failure; D69.3 Immune thrombocytopenic purpura; I11.0 Hypertensive heart disease with heart failure; D33.3 Benign neoplasm of cranial nerves; E03.9 Hypothyroidism, unspecified; E78.5 Hyperlipidemia, unspecified; H91.91 Unspecified hearing loss, right ear; I25.10 Atherosclerotic heart disease of native coronary artery without angina pectoris; I27.21 Secondary pulmonary arterial hypertension; I35.1 Nonrheumatic aortic (valve) insufficiency; I50.82 Biventricular heart failure; I71.2 Thoracic aortic aneurysm, without rupture; J84.112 Idiopathic pulmonary fibrosis; J84.89 Other specified interstitial pulmonary diseases; K21.9 Gastro-esophageal reflux disease without esophagitis; K44.9 Diaphragmatic hernia without obstruction or gangrene; N26.1 Atrophy of kidney (terminal); R09.02 Hypoxemia; Z79.2 Long term (current) use of antibiotics; Z79.52 Long term (current) use of systemic steroids; Z79.899 Other long term (current) drug therapy; Z83.3 Family history of diabetes mellitus; Z86.73 Personal history of transient ischemic attack (TIA), and cerebral infarction without residual deficits; Z86.79 Personal history of other diseases of the circulatory system; Z87.891 Personal history of nicotine dependence; Z79.890 Hormone replacement therapy; Z88.8 Allergy status to other drugs, medicaments and biological substances; Z97.4 Presence of external hearing-aid; H92.21 Otorrhagia, right ear
CPT/HCPCS: 36415; 71046; 71275; 80053; 80061; 81003; 82550; 82553; 83605; 83735; 83880; 84484; 85025; 85379; 85610; 85730; 87040; 93005; 93306; 93458; 94640; 94760; 96361; 96365; 96367; 96375; 96376; 99291

== ENCOUNTER 2018-10-13 10:36 | Inpatient (IN) | payer MEDICARE, BC ==
[2018-10-13] MEDS ORDERED: IPRATROPIUM 0.5 MG/2.5 ML NEBU INHALATION STA (10:51)
[2018-10-13] MEDS ORDERED: methylPREDNISolone SOD SUCCI 125 MG/2 ML VIAL IV STA (10:51)
[2018-10-13] MEDS ORDERED: ALBUTEROL NEBULIZED 2.5 MG/3 ML INHALATION STA (10:51)
[2018-10-13] MEDS ORDERED: SODIUM CHLORIDE 0.9% 1,000 ML IV STA (10:51)
--- NOTE | 2018-10-13 11:07 | ED ---
Weakness HPI - General Chief complaint: Shortness of Breath Stated complaint: SOB, weakness, fall Time Seen by Provider: 10/13/18 10:50 Source: patient, RN notes reviewed, old records reviewed Mode of arrival: wheelchair Limitations: no limitations - History of Present Illness Initial comments: This is a 78-year-old male the ER for evaluation presents today for evaluation of multiple complaints weakness not feeling well states he doesn't feel worse ex am, patient has right hip pain from a recent fall secondary weakness. Also complains of shortness of breath with history of pulmonary fibrosis. Patient denies any recent fevers, no recent hospital admissions within the past year. No recent change in medications. 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 Patient has been on antibiotics for quite some time. Patient does admit to diarrhea but he states that is related to the antibiotics MD Complaint: generalized weakness, lack of energy -: days(s) Location: generalized Severity: moderate Severity scale (1-10): 5 Consistency: constant Improves with: none Worsens with: movement Context: recent illness, history of similar Associated Symptoms: loss of appetite, nausea/vomiting, shortness of breath - Related Data Home Medications Medication Instructions Recorded Confirmed Amoxicillin/Potassium Clav 1 tab PO Q12HR 01/04/15 10/13/18 [Augmentin 875-125 Tablet] Ciprofloxacin HCl [Cipro] 500 mg PO Q12HR 01/04/15 10/13/18 Levothyroxine Sodium [Synthroid] 150 mcg PO DAILY 01/04/15 10/13/18 Tiotropium [place] [Spiriva 1 puff INHALATION RT-DAILY 06/27/17 10/13/18 Respimat] predniSONE 20 mg PO Q48H 06/27/17 10/13/18 Atorvastatin [Lipitor] 20 mg PO HS 10/13/18 10/13/18 amLODIPine [Norvasc] 5 mg PO DAILY 10/13/18 10/13/18 traMADol HCL [Ultram] 50 mg PO TID PRN 10/13/18 10/13/18 traZODone HCL [Desyrel] 100 mg PO HS 10/13/18 10/13/18 Allergies Allergy/AdvReac Type Severity Reaction Status Date / Time DILLON Inhibitors Allergy Swelling Verified 10/13/18 11:02 Review of Systems ROS Statement: Those systems with pertinent positive or pertinent negative responses have been documented in the HPI. ROS Other: All systems not noted in ROS Statement are negative. Past Medical History Past Medical History: Asthma, CVA/TIA, Hearing Disorder / Deafness, Hyperlipidemia, Hypertension, Prostate Disorder, Thyroid Disorder Additional Past Medical History / Comment(s): deaf in right ear History of Any Multi-Drug Resistant Organisms: None Reported Past Surgical History: Appendectomy, Back Surgery, Hernia Repair, Orthopedic Surgery, Tonsillectomy Additional Past Surgical History / Comment(s): aortic aneursym repair x2, "leaky valve repair", eyelid surgery, cardiac cath, acoustic neuroma, laminectomy Past Anesthesia/Blood Transfusion Reactions: No Reported Reaction Past Psychological History: No Psychological Hx Reported Smoking Status: Former smoker Past Alcohol Use History: None Reported Past Drug Use History: None Reported - Past Family History Father Family Medical History: CVA/TIA Sister(s) Family Medical History: Diabetes Mellitus General Exam Limitations: no limitations General appearance: alert, in no apparent distress, anxious, lethargic Head exam: Present: atraumatic, normocephalic, normal inspection Eye exam: Present: normal appearance, PERRL, EOMI. Absent: scleral icterus, conjunctival injection, periorbital swelling ENT exam: Present: normal exam, mucous membranes moist Neck exam: Present: normal inspection. Absent: tenderness, meningismus, lympha denopathy Respiratory exam: Present: normal lung sounds bilaterally. Absent: respiratory distress, wheezes, rales, rhonchi, stridor Cardiovascular Exam: Present: normal rhythm, tachycardia, normal heart sounds. Absent: systolic murmur, diastolic murmur, rubs, gallop, clicks GI/Abdominal exam: Present: soft, normal bowel sounds. Absent: distended, tenderness, guarding, rebound, rigid Extremities exam: Present: normal inspection, full ROM, normal capillary refill. Absent: tenderness, pedal edema, joint swelling, calf tenderness Back exam: Present: normal inspection Neurological exam: Present: alert, oriented X3, CN II-XII intact Psychiatric exam: Present: normal affect, normal mood Skin exam: Present: warm, dry, intact, normal color. Absent: rash Course Vital Signs 10/13/18 10/13/18 10/13/18 10:39 11:00 11:23 Temperature 97.5 F L Pulse Rate 106 H 93 89 Respiratory 24 22 18 Rate Blood Pressure 93/62 90/65 101/65 O2 Sat by Pulse 86 L 90 L 89 L Oximetry 10/13/18 10/13/18 10/13/18 11:25 11:47 12:00 Temperature Pulse Rate 87 88 87 Respiratory Rate Blood Pressure O2 Sat by Pulse Oximetry 10/13/18 13:00 Temperature Pulse Rate 89 Respiratory 18 Rate Blood Pressure 108/72 O2 Sat by Pulse 93 L Oximetry - Reevaluation(s) Reevaluation #1: 10/13/18 11:07 Medical records reviewed 10/13/18 11:07 Outpatient x-ray reviewed as negative of right hip Reevaluation #2: 10/13/18 13:37 Patient does have symptomatic improvement with breathing treatment, denying current chest pain EKG Findings - EKG Comments: EKG Findings:: EKG shows sinus rhythm rate of 95, HI 160, QRS 102, QTc 487 Medical Decision Making - Medical Decision Making 78 male the ER for evaluation history of pulmonary fibrosis, coming in for severe weakness today. Patient does have elevated troponin, recent mild CT, non-STEMI. EKG unchanged. Patient will be admitted for cardiology observation, echo, continue breathing treatments and monitoring of cardiopulmonary status hypoxia - Lab Data Result diagrams: 10/13/18 11:12 10/13/18 11:12 Lab Results 10/13/18 10/13/18 10/13/18 Range/Units 11:12 11:12 11:12 WBC 9.6 (3.8-10.6) k/uL RBC 5.16 (4.30-5.90) m/uL Hgb 15.2 (13.0-17.5) gm/dL Hct 46.7 (39.0-53.0) % MCV 90.6 (80.0-100.0) fL MCH 29.4 (25.0-35.0) pg MCHC 32.5 (31.0-37.0) g/dL RDW 14.1 (11.5-15.5) % Plt Count 59 L (150-450) k/uL Neutrophils % 88 % Lymphocytes % 4 % Monocytes % 5 % Eosinophils % 2 % Basophils % 1 % Neutrophils # 8.5 H (1.3-7.7) k/uL Lymphocytes # 0.4 L (1.0-4.8) k/uL Monocytes # 0.5 (0-1.0) k/uL Eosinophils # 0.2 (0-0.7) k/uL Basophils # 0.1 (0-0.2) k/uL Manual Slide Review Performed PT (9.0-12.0) sec INR (<1.2) APTT (22.0-30.0) sec Sodium 140 (137-145) mmol/L Potassium 4.4 (3.5-5.1) mmol/L Chloride 104 (98-107) mmol/L Carbon Dioxide 22 (22-30) mmol/L Anion Gap 14 mmol/L BUN 25 H (9-20) mg/dL Creatinine 2.09 H (0.66-1.25) mg/dL Est GFR (CKD-EPI)AfAm 35 (>60 ml/min/1.73 sqM) Est GFR (CKD-EPI)NonAf 30 (>60 ml/min/1.73 sqM) Glucose 140 H (74-99) mg/dL Calcium 8.8 (8.4-10.2) mg/dL Magnesium 1.7 (1.6-2.3) mg/dL Total Bilirubin 1.2 (0.2-1.3) mg/dL AST 49 (17-59) U/L ALT 16 L (21-72) U/L Alkaline Phosphatase 68 (38-126) U/L Troponin I (0.000-0.034) ng/mL NT-Pro-B Natriuret Pep 8010 pg/mL Total Protein 6.2 L (6.3-8.2) g/dL Albumin 3.5 (3.5-5.0) g/dL 10/13/18 10/13/18 Range/Units 11:12 11:12 WBC (3.8-10.6) k/uL RBC (4.30-5.90) m/uL Hgb (13.0-17.5) gm/dL Hct (39.0-53.0) % MCV (80.0-100.0) fL MCH (25.0-35.0) pg MCHC (31.0-37.0) g/dL RDW (11.5-15.5) % Plt Count (150-450) k/uL Neutrophils % % Lymphocytes % % Monocytes % % Eosinophils % % Basophils % % Neutrophils # (1.3-7.7) k/uL Lymphocytes # (1.0-4.8) k/uL Monocytes # (0-1.0) k/uL Eosinophils # (0-0.7) k/uL Basophils # (0-0.2) k/uL Manual Slide Review PT 10.8 (9.0-12.0) sec INR 1.0 (<1.2) APTT 25.4 (22.0-30.0) sec Sodium (137-145) mmol/L Potassium (3.5-5.1) mmol/L Chloride (98-107) mmol/L Carbon Dioxide (22-30) mmol/L Anion Gap mmol/L BUN (9-20) mg/dL Creatinine (0.66-1.25) mg/dL Est GFR (CKD-EPI)AfAm (>60 ml/min/1.73 sqM) Est GFR (CKD-EPI)NonAf (>60 ml/min/1.73 sqM) Glucose (74-99) mg/dL Calcium (8.4-10.2) mg/dL Magnesium (1.6-2.3) mg/dL Total Bilirubin (0.2-1.3) mg/dL AST (17-59) U/L ALT (21-72) U/L Alkaline Phosphatase (38-126) U/L Troponin I 0.896 H* (0.000-0.034) ng/mL NT-Pro-B Natriuret Pep pg/mL Total Protein (6.3-8.2) g/dL Albumin (3.5-5.0) g/dL - Radiology Data Radiology results: report reviewed (X-rays negative for acute disease CT hip negative for acute disease), image reviewed Critical Care Time Critical Care Time: Yes Total Critical Care Time: 31 Disposition Clinical Impression: COPD with emphysema, Acute exacerbation of chronic obstructive airways disease, Hypoxia, NSTEMI (non-ST elevated myocardial infarction) Disposition: ADMITTED IP TO THIS HOSP Condition: Fair Is patient prescribed a controlled substance at d/c from ED?: No Referrals: Malik Tate MD [Primary Care Provider] - 1-2 days
[2018-10-13 11:41] LABS: Albumin 3.5 g/dL (3.5-5.0); Calcium 8.8 mg/dL (8.4-10.2); Magnesium 1.7 mg/dL (1.6-2.3); Potassium 4.4 mmol/L (3.5-5.1); Total Bilirubin 1.2 mg/dL (0.2-1.3); Total Protein 6.2 g/dL (6.3-8.2)
[2018-10-13 11:42] LABS: Basophils # (A) 0.1 k/uL (0-0.2); Basophils % (A) 1 %; Eosinophils # (A) 0.2 k/uL (0-0.7); Eosinophils % (A) 2 %; HCT 46.7 % (39.0-53.0); HGB 15.2 gm/dL (13.0-17.5); Lymphocytes # (A) 0.4 k/uL (1.0-4.8); Lymphocytes % (A) 4 %; MCH 29.4 pg (25.0-35.0); MCHC 32.5 g/dL (31.0-37.0); MCV 90.6 fL (80.0-100.0); Mean Platelet Volume 10.9; Monocytes # (A) 0.5 k/uL (0-1.0); Monocytes % (A) 5 %; Neutrophils # (A) 8.5 k/uL (1.3-7.7); Neutrophils % (A) 88 %; Partial Thromboplastin Time 25.4 sec (22.0-30.0); Prothrombin Time 10.8 sec (9.0-12.0); RBC 5.16 m/uL (4.30-5.90); RDW 14.1 % (11.5-15.5); WBC 9.6 k/uL (3.8-10.6)
[2018-10-13 11:52] LABS: Platelet Count 59 k/uL (150-450)
--- NOTE | 2018-10-13 12:57 | XR ---
EXAMINATION TYPE: XR chest 2V DATE OF EXAM: 10/13/2018 COMPARISON: 06/27/2017 INDICATION: Her breath, difficulty breathing TECHNIQUE: Frontal and lateral views of the chest are obtained. FINDINGS: The heart size is enlarged. The pulmonary vasculature is normal. No suspicious consolidations are evident. There are some peripheral increased lung markings and some underlying pulmonary fibrosis is suspected. Small hiatal hernia may be present. IMPRESSION: 1. Pulmonary fibrosis. 2. No acute pulmonary process. 3. Hiatal hernia. 4. Cardiomegaly
--- NOTE | 2018-10-13 13:02 | CT ---
EXAMINATION TYPE: CT hip RT wo con DATE OF EXAM: 10/13/2018 COMPARISON: None HISTORY: pain post fall CT DLP: 443.9 mGycm Automated exposure control for dose reduction was used. FINDINGS: There is narrowing of the joint space without evidence of erosive change. Calcification along the loc ation of the acetabular labrum suggestive associated with chronic acetabular labral tear. There is no acute displaced fracture. There is no evidence of dislocation. Fat-containing inguinal hernia noted. Atherosclerotic change of the vasculature. IMPRESSION: 1. No acute fracture. 2. Arthritic changes correlate for osteoarthritis.
[2018-10-13] MEDS ORDERED: ASPIRIN 81 MG PO STA (13:33)
[2018-10-13] MEDS ORDERED: NITROGLYCERIN SL TABS 0.4 MG TAB SUBLINGUAL PRN (13:33)
[2018-10-13] MEDS ORDERED: IPRATROPIUM-ALBUTEROL 3 ML NEB INHALATION STA (13:33)
[2018-10-13] MEDS ORDERED: HEPARIN SODIUM,PORCINE 5,000 UNIT/ML 1 ML VIAL IV PRN (13:33)
[2018-10-13] MEDS ORDERED: HEPARIN SODIUM,PORCINE 5,000 UNIT/ML 1 ML VIAL IV ONE (13:33)
[2018-10-13] MEDS ORDERED: HEPARIN SOD,PORK IN 0.45% NACL 25,000 UNIT in 0.45% NACL 1 250ML.BAG IV SCH (13:45)
[2018-10-13] MEDS: SODIUM CHLORIDE 0.9% 1,000 ML IV SCH ×2 (13:56→23:35)
[2018-10-13] MEDS ORDERED: MORPHINE SULFATE 2 MG/ML SYRINGE IVP STA (15:45)
--- NOTE | 2018-10-13 16:23 | P.HPIM ---
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 Mcghee on chronic antibiotics for infection), pulmonary fibrosis due to secondhand smoke, hypertension, hypothyroidism, hyperlipidemia presents to the ED with multiple complaints. Patient complains of right hip pain that started on Thursday. Patient states that he was at a car show when someone fell into him, knocking the patient to the floor. Patient states he landed on his right side and denied any loss of consciousness. Patient reported worsening right hip pain over the next couple of days. Pain is 8 out of 10 in severity and aggravated with movement. He saw his PCP and x-ray was ordered which showed no fractures. He was prescribed tr amadol by his PCP which did not provide him any relief, prompting him to come to the ED. He ambulates with a cane as needed. He denies any bladder or bowel incontinence, saddle anesthesia. Patient also reports some shortness of breath with exertion and generalized weakness that has been ongoing since Thursday. Patient states that he is usually able to walk 1 block without stopping to catch his breath can now barely walk to the bathroom without feeling winded. He denies any orthopnea or PND. He denies any lower extremity swelling. Patient sees a quality assurance tester at [place] for his pulmonary fibrosis. Patient reports never being on home oxygen. Patient denies any headaches, nausea or vomiting, fever or chills, chest pain, palpitations, dizziness, numbness/weakness/tingling of the extremities. He does report a chronic cough that is productive of white sputum. Patient reports i ncreased frequency of urination during this time as well but denies any dysuria or hematuria. Patient also reports diarrhea that is chronic in nature, ongoing for 15 years, related to antibiotic use. In the ED, patient was noted to be hypoxic saturating 80s on room air. His vital signs were otherwise stable. CBC showed platelet count of 59. Coagulation panel was negative. CMP showed BUN of 25, creatinine of 2.09 and glucose of 140. Troponin was 0.896 with EKG showing sinus rhythm, RBBB, p rolonged QTC and T-wave abnormalities. BNP was 8010 with chest x-ray showing findings of pulmonary fibrosis. Hip CT showed no acute fracture. Patient is admitted for hypoxia and troponin elevation with cardiology on consult. Review of Systems Pertinent positives and negatives as discussed in HPI, a complete review of systems was performed and all other systems are negative. 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 History of Any Multi-Drug Resistant Organisms: None Reported Past Surgical History: Appendectomy, Back Surgery, Bowel Resection, Heart Catheterization, Hernia Repair, Orthopedic Surgery, Tonsillectomy Additional Past Surgical History / Comment(s): AAA repair, AAA redo at [facility] with gortex graft-insituaortoiliac bypass with small bowel resection, aortic valve surgery, lumbar laminectomy, bilateral knee arthroscopies, EGD, [place], colonoscopies, 2000 acoustic neuroma R side-eardrum removed, L foot neuroma removed, incisional hernias, bilateral inguinal hernia repairs, bilateral eyelid surgery Past Anesthesia/Blood Transfusion Reactions: No Reported Reaction Smoking Status: Former smoker - Past Family History Father Family Medical History: CVA/TIA Sister(s) Family Medical History: Diabetes Mellitus Mother Family Medical History: No Reported History Additional Family Medical History / Comment(s): Mother was healthy and lived to be 95 yrs old. Medications and Allergies Home Medications Medication Instructions Recorded Confirmed Type Amoxicillin/Potassium Clav 1 tab PO Q12HR 01/04/15 10/13/18 History [Augmentin 875-125 Tablet] Ciprofloxacin HCl [Cipro] 500 mg PO Q12HR 01/04/15 10/13/18 History Levothyroxine Sodium [Synthroid] 150 mcg PO DAILY 01/04/15 10/13/18 History Tiotropium [place] [Spiriva 1 puff INHALATION RT-DAILY 06/27/17 10/13/18 History Respimat] predniSONE 20 mg PO Q48H 06/27/17 10/13/18 History Atorvastatin [Lipitor] 20 mg PO HS 10/13/18 10/13/18 History amLODIPine [Norvasc] 5 mg PO DAILY 10/13/18 10/13/18 History traMADol HCL [Ultram] 50 mg PO TID PRN 10/13/18 10/13/18 History traZODone HCL [Desyrel] 100 mg PO HS 10/13/18 10/13/18 History Allergies Allergy/AdvReac Type Severity Reaction Status Date / Time DILLON Inhibitors Allergy Swelling Verified 10/13/18 11:02 Physical Exam Vitals: Vital Signs Temp Pulse Resp BP Pulse Ox 10/13/18 15:43 90 18 123/65 94 L 10/13/18 14:24 90 18 119/79 94 L 10/13/18 14:07 90 10/13/18 13:55 88 10/13/18 13:00 89 18 108/72 93 L 10/13/18 12:00 87 10/13/18 11:47 88 10/13/18 11:25 87 10/13/18 11:23 89 18 101/65 89 L 10/13/18 11:00 93 22 90/65 90 L 10/13/18 10:39 97.5 F L 106 H 24 93/62 86 L Intake and Output 10/13/18 10/13/18 10/13/18 06:59 14:59 22:59 Other: Weight 79.832 kg General: [non toxic], [no distress], [appears at stated age] Derm: [warm], [dry] Head: [atraumatic], [normocephalic], [symmetric] Eyes: [EOMI], [no lid lag], [anicteric sclera] Mouth: [no lip lesion], [mucus membranes moist] Cardiovascular: [S1S2 reg], [no murmur], [positive DP pulse bilateral] Lungs: [Coarse breath sounds bilaterally with good air entry and fine crackles], [no rhonchi, no rales] , [no accessory muscle use] Abdominal: [soft], [ nontender to palpation], [midline abdominal surgical scar], [no appreciable organomegaly] Ext: [no gross muscle atrophy], [no edema], [no contractures] Neuro: [ CN II-XI grossly intact], [no focal neuro deficits] Psych: [Alert], [oriented], [appropriate affect] Results CBC & Chem 7: 10/13/18 11:12 10/13/18 11:12 Labs: Abnormal Lab Results - Last 24 Hours (Table) 10/13/18 10/13/18 10/13/18 Range/Units 11:12 11:12 11:12 Plt Count 59 L (150-450) k/uL Neutrophils # 8.5 H (1.3-7.7) k/uL Lymphocytes # 0.4 L (1.0-4.8) k/uL BUN 25 H (9-20) mg/dL Creatinine 2.09 H (0.66-1.25) mg/dL Glucose 140 H (74-99) mg/dL ALT 16 L (21-72) U/L Troponin I 0.896 H* (0.000-0.034) ng/mL Total Protein 6.2 L (6.3-8.2) g/dL Thrombosis Risk Factor Assmnt - Choose All That Apply Any of the Below Risk Factors Present?: Yes Each Factor Represents 1 point: Abnormal pulmonary function (COPD), Acute DE, Sepsis (< 1month) Each Risk Factor Represents 3 Points: Age 75 years or older Other congenital or acquired thrombophilia - If yes, enter type in comment: No Thrombosis Risk Factor Assessment Total Risk Factor Score: 6 Thrombosis Risk Factor Assessment Level: High Risk Assessment and Plan Assessment: Assessment and Plan Acute hypoxic respiratory failure due to pulmonary fibrosis and interstitial lung disease Troponin elevation, likely demand ischemia from hypoxia Acute right hip pain, associated with mechanical fall Acute kidney injury likely due to dehydration Thrombocytopenia History of aortic aneurysm post aortic graft 2 complicated by infection on lifelong antibiotics Chronic conditions: Hypertension, hyperlipidemia, hypothyroidism Oxygen saturation 86% on room air on presentation. Chest x-ray shows pulmonary fibrosis, no acute pulmonary process. Wells score 0, no clinical signs of PE. Plans: O2 per NC to maintain O2 saturation greater than 92%. Optimize COPD medications. Follow Pulmonology consultation. Troponin 0.896 with EKG showing normal sinus rhythm, prolonged QTC of 487, T- wave abnormalities and RBBB. Cardiac catheterization from June 2017 shows 30% narrowing midportion RCA, 30-40% narrowing of the mid LAD. Echocardiogram shows EF 50-55% with moderate concentric LVH. Plans: Trend troponin/EKG to rule out ACS. Heparin drip discontinued due to low platelet count. Telemetry monitoring. Started on aspirin 325 mg by mouth daily. Continue Lipitor 20 g by mouth at bedtime. Follow repeat echocardiogram. Follow-up cardiology consultation. CT of the hip shows no acute fracture. Mechanical fall. Plans: Pain management with tramadol, [place] or morphine as needed. Follow PT and OT recommendations. Follow urinalysis given urinary frequency. Creatinine 2.09. Baseline creatinine around 1.1-1.5. Likely due to dehydration. Also has chronic diarrhea related to antibiotic use. Plans: Continue normal saline at 100 mL/h. Avoid nephrotoxins. Repeat BMP. Platelet count 59. Chronically low when reviewed to previous admission. No signs of bleeding. Plans: Daily CBC. Avoid heparin products, SCD boots for DVT prophylaxis. Previously seen Dr. Zapata and surgeon at [place]. Currently follows Dr. Mcghee for management. Plans: Continue antihypertensives. Continue aspirin. Continue Augmentin and ciprofloxacin. Needs adequate outpatient follow-up. Resume home medications for hypertension, hyperlipidemia and hypothyroidism. This patient will be admitted for anticipated greater than 48 hours. DVT prophylaxis: [SCD boots] Discussed with: [Patient] Anticipated discharge: [1-3 days] Anticipated discharge place: [Home] A total of [45] minutes was spent on the care of this complex patient more than 50% of the time was spent in counseling and care coordination. Patient's PCP as Dr. Tate. Patient names his son Alex decision-maker in the case that he can't make decisions for himself.
[2018-10-13] MEDS ORDERED: MORPHINE SULFATE 2 MG/ML SYRINGE IV PRN (16:32)
[2018-10-13] MEDS ORDERED: NALOXONE 0.4 MG/ML 1 ML VIAL IV PRN (16:32)
[2018-10-13] MEDS: IPRATROPIUM-ALBUTEROL 3 ML NEB INHALATION SCH ×2 (17:05→19:50)
[2018-10-13] MEDS: methylPREDNISolone SOD SUCCI 125 MG/2 ML VIAL IV SCH ×2 (18:09→23:46)
[2018-10-13] MEDS: traMADol 50 MG TAB PO PRN (20:24)
[2018-10-13] MEDS: AMOXIC-POT CLAV 875-125MG 1 EACH TAB PO SCH (20:24)
[2018-10-13] MEDS: CIPROFLOXACIN HCL 500 MG TAB PO SCH (20:24)
[2018-10-13] MEDS: traZODone HCL 100 MG TAB PO SCH (20:24)
[2018-10-13] MEDS: ATORVASTATIN 20 MG TAB PO SCH (20:25)
[2018-10-13 20:55] LABS: Glucose,Whole Blood 185 mg/dL (75-99)
[2018-10-13] MEDS: ACETAMINOPHEN TAB 325 MG TAB PO PRN (23:45)
[2018-10-14 00:27] LABS: Appearance,Urine Clear (Clear); Bilirubin,Urine Negative (Negative); Blood,Urine Negative (Negative); Cellular Casts,Urine 1 /lpf (0); Color,Urine Yellow; Glucose,Urine (UA) Negative (Negative); Hyaline Casts,Urine 7 /lpf (0-2); Ketones,Urine 1+ (Negative); Leukocyte Esterase,Urine Negative (Negative); Mucus,Urine Rare /hpf; Nitrite,Urine Negative (Negative); PH, Urine 5.5 (5.0-8.0); Protein,Urine 1+ (Negative); RBC,Urine 4 /hpf (0-5); Specific Gravity,Urine 1.028 (1.001-1.035); Urobilinogen,Urine <2.0 mg/dL (<2.0)
--- NOTE | 2018-10-14 03:57 | CONS ---
CONSULTATION Mr. Hernández is a 78-year-old gentleman who is seen for cardiac evaluation in the emergency room. This patient came with a complaint of not feeling well and weakness. Patient had a fall a few days ago and has been having a right hip pain. He thought that he might have a fractured hip. However, CT scan of the hip is negative. This patient has a severe pulmonary fibrosis, has been using oxygen at home and his physical activities are significantly limited. The patient denies any chest discomfort. The patient had a previous cardiac catheterization done about a year ago. At that time, no significant coronary artery disease was detected. The patient has a history of abdominal aortic aneurysm repair and a chronically infected graft for which he is on chronic antibiotic treatment and has been having some chronic diarrhea. Patient denies any chest discomfort. He denies any significant cough with expectoration or fever or chills. HOME MEDICATIONS: Include Augmentin, Cipro, Synthroid 150 mcg daily, Spiriva inhaler once a day, prednisone 20 mg q48 hourly, amlodipine 5 mg daily, Lipitor 20 mg daily, Desyrel 100 mg daily, Ultram. ALLERGIES: DILLON INHIBITORS. REVIEW OF THE SYSTEM: Otherwise unremarkable. PAST MEDICAL HISTORY: Includes a history of TIA, asthma, history of appendicectomy, back surgery, hernia repair, orthopedic surgery and tonsillectomy and recent cardiac catheterization about a year ago. The patient also has an ascending aortic aneurysm which is about 4.6-4.7 cm and has been regularly followed. However, patient is not considered a candidate for any repair because of the severe pulmonary fibrosis. PHYSICAL EXAMINATION: At present reveals a 78-year-old gentleman who is lying comfortably in bed in the emergency room. Patient's initial oxygen saturation was 86%. Heart rate was 106. Heart rate now is 89, blood pressure is 101/65 mmHg. HEENT examination is negative. Neck is supple. There is no increase in jugular venous pressure. Heart, first and second heart sounds are heard. Lung examination reveals bilateral basal crackles. Abdomen is negative. Extremities, there is no evidence of any leg edema. EKG shows a normal sinus rhythm with ST-T changes noted in the inferior lateral leads which is not significantly changed from before. The patient has evidence of left ventricular hypertrophy. Patient's chest x-ray shows evidence of pulmonary fibrosis. The patient's creatinine is 2.0 and the patient's proBNP level is 8010. Troponin level is 0.89. FINAL IMPRESSION: This patient is admitted with hip pain and feeling generalized weakness. The patient did not complain of any chest discomfort suggestive of angina. EKG shows some ST-T changes which is not changed from before. The patient has a mildly elevated troponin which could be secondary to supply and demand mismatch from the hypoxia and underlying pulmonary fibrosis. Clinically, this is not definitely suggestive of acute coronary syndrome. Echocardiogram shows normal wall motion without any significant wall motion abnormality. We will recommend to obtain serial troponins. The patient will be hydrated with 100 mL/hour and the creatinine will be rechecked. Overall patient's prognosis is guarded. MMODL / IJN: [id number] /
[2018-10-14] MEDS: LEVOTHYROXINE 75 MCG TAB PO SCH (05:35)
[2018-10-14] MEDS: methylPREDNISolone SOD SUCCI 125 MG/2 ML VIAL IV SCH (05:36)
[2018-10-14 06:16] LABS: Basophils % (A) 0 %; Eosinophils % (A) 1 %; HCT 41.9 % (39.0-53.0); HGB 13.7 gm/dL (13.0-17.5); Lymphocytes # (A) 0.3 k/uL (1.0-4.8); Lymphocytes % (A) 5 %; MCH 29.7 pg (25.0-35.0); MCHC 32.7 g/dL (31.0-37.0); MCV 90.8 fL (80.0-100.0); Mean Platelet Volume 10.7; Monocytes # (A) 0.2 k/uL (0-1.0); Monocytes % (A) 2 %; Neutrophils # (A) 5.7 k/uL (1.3-7.7); Neutrophils % (A) 91 %; RBC 4.61 m/uL (4.30-5.90); RDW 15.3 % (11.5-15.5); WBC 6.3 k/uL (3.8-10.6)
[2018-10-14 06:17] LABS: Glucose,Whole Blood 165 mg/dL (75-99)
[2018-10-14 06:19] LABS: Platelet Count 63 k/uL (150-450)
[2018-10-14 06:52] LABS: Calcium 8.5 mg/dL (8.4-10.2); Potassium 4.2 mmol/L (3.5-5.1)
--- NOTE | 2018-10-14 07:29 | ECHOF ---
Referral Reason:elevTrop MEASUREMENTS -------- HEIGHT: 177.8 cm WEIGHT: 79.8 kg BP: 108/72 RVIDd: 3.3 cm (< 3.3) IVSd: 1.8 cm (0.6 - 1.1) LVIDd: 3.5 cm (3.9 - 5.3) LVPWd: 1.8 cm (0.6 - 1.1) IVSs: 2.2 cm LVIDs: 2.7 cm LVPWs: 2.2 cm LAESV Index (A-L): 18.00 ml/m Ao Diam: 4.8 cm (2.0 - 3.7) AV Cusp: 3.0 cm (1.5 - 2.6) LA Diam: 4.7 cm (2.7 - 3.8) MV E Dorian: 0.66 m/s MV DecT: 307 ms MV A Dorian: 1.08 m/s MV E/A Ratio: 0.61 AR PHT: 502 ms RAP: 5.00 mmHg RVSP: 55.96 mmHg FINDINGS -------- Sinus rhythm. This was a technically adequate study. The left ventricular size is normal. There is severe concentric left ventricular hypertrophy. Ove rall left ventricular systolic function is normal with, an EF between 55 - 60 %. Mitral Doppler inf low pattern suggests diastolic filling abnormality 16.22. The right ventricle is mildly enlarged. Normal LA size by volume 22+/-6 ml/m2. The right atrial size is normal. Interatrial and interventricular septum intact. The aortic valve is trileaflet and appears structurally normal. There is [id number] aortic regurgitation. There is no evidence of aortic stenosis. Mild mitral annular calcification present. There is trace mitral regurgitation. Moderate tricuspid regurgitation present. There is moderate to severe pulmonary hypertension. The right ventricular systolic pressure, as measured by Doppler, is 55.96mmHg. Trace/mild (physiologic) pulmonic regurgitation. The aortic root and ascending aorta are dilated measuring up to (4.8 CM). There is no pericardial effusion. CONCLUSIONS -------- 1. Sinus rhythm. 2. This was a technically adequate study. 3. The left ventricular size is normal. 4. There is severe concentric left ventricular hypertrophy. 5. Overall left ventricular systolic function is normal with, an EF between 55 - 60 %. 6. Mitral Doppler inflow pattern suggest diastolic filling abnormality 16.22. 7. The right ventricle is mildly enlarged. 8. Normal LA size by volume 22+/-6 ml/m2. 9. The right atrial size is normal. 10. Interatrial and interventricular septum intact. 11. The aortic valve is trileaflet and appears structurally normal. 12. There is [id number] aortic regurgitation. 13. There is no evidence of aortic stenosis. 14. Mild mitral annular calcification present. 15. There is trace mitral regurgitation. 16. Moderate tricuspid regurgitation present. 17. There is moderate to severe pulmonary hypertension. 18. The right ventricular systolic pressure, as measured by Doppler, is 55.96mmHg. 19. Trace/mild (physiologic) pulmonic regurgitation. 20. The aortic root and ascending aorta are dilated measuring up to (4.8cm). 21. There is no pericardial effusion. CONTINUITY DIRECTOR: Marga Sanchez RDCS
[2018-10-14] MEDS: IPRATROPIUM-ALBUTEROL 3 ML NEB INHALATION SCH ×4 (08:19→18:47)
--- NOTE | 2018-10-14 08:24 | XR ---
EXAMINATION TYPE: XR chest 1V DATE OF EXAM: 10/14/2018 COMPARISON: 10/13/2018 HISTORY: Shortness of breath and weakness TECHNIQUE: Single frontal view of the chest is obtained. FINDINGS: The heart is enlarged and there is a coarsened interstitium. Hiatal hernia suspected. No p neumothorax. No pleural effusion. IMPRESSION: Cardiomegaly and findings suggestive of pulmonary fibrosis.
[2018-10-14] MEDS ORDERED: ENOXAPARIN 40 MG/0.4 ML SYRINGE SQ SCH (09:00)
[2018-10-14] MEDS ORDERED: amLODIPine 5 MG TAB PO SCH (09:00)
[2018-10-14] MEDS ORDERED: ASPIRIN 325 MG TAB PO SCH (09:00)
[2018-10-14] MEDS: CIPROFLOXACIN HCL 500 MG TAB PO SCH ×2 (10:14→20:59)
[2018-10-14] MEDS: AMOXIC-POT CLAV 875-125MG 1 EACH TAB PO SCH ×2 (10:14→20:59)
[2018-10-14] MEDS: traMADol 50 MG TAB PO PRN ×2 (10:15→20:59)
[2018-10-14 11:30] VITALS: BMI 25.5
[2018-10-14 11:40] LABS: Glucose,Whole Blood 177 mg/dL (75-99)
[2018-10-14] MEDS: SODIUM CHLORIDE 0.9% 1,000 ML IV SCH (12:05)
[2018-10-14] MEDS: ACETAMINOPHEN TAB 325 MG TAB PO PRN (13:06)
[2018-10-14] MEDS: METOPROLOL SUCCINATE (ER) 25 MG TAB.ER.24H PO SCH (13:22)
--- NOTE | 2018-10-14 15:16 | P.CNPUL ---
History of Present Illness Consult date: 10/14/18 Reason for consult: dyspnea History of present illness: 78-year-old male patient with multiple medical problems and comorbidities. The patient is known to have chronic hypoxic respiratory failure secondary to COPD and pulmonary fibrosis. He has been followed up by program production specialist out of town and the [facility] area. Upon reviewing his previous films, the patient has cystic pulmonary lesions throughout his lungs along with scarring in the lung bases bilaterally. This obviously raises the possibility of Langerhans disease/years and a follicular adenoma. The patient has a maintained on Spiriva and Symbicort on outpatient basis. He takes prednisone 20 mg every other day per his program production specialist. He also takes long-term antibiotic suppression with Augmentin and the rationale behind long-term antibiotics was prophylaxis towards an abdominal aortic aneurysm that was grafted many years back. 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 There is also a history of CVA, yet the right facial weakness probably to his previous surgical resection of the acoustic neuroma. The patient came into the hospital because of having worsening shortness of breath. He apparently has an incidence where somebody fell on him Narcan to the floor and the patient developed a right sided hip pain. His pain was around 8 out of 10 in severity. He has also not taken his prednisone for quite some time. He presented to his primary care and he was having his pain in his right hip area and worsening shortness of breath. No cough. No sputum production. No hemoptysis. No pleurisy. In the ED, the patient was noted to be hypoxic initially with a pulse ox of 80% on room air. His platelet count was 59. Correlation profile is normal. Creatinine was up to 109 with a mean of 25 and his troponins were 0.896 an EKG showing a sinus rhythm, RBBB pattern and a proBNP level of 8010. Chest x-ray findings were consistent with chronic emphysema/fibrosis. CAT scan of the head showed no acute fracture. 3 of any chest pain. No nausea. No vomiting. No abdominal pain. No pleurisy. Review of Systems Constitutional: Reports fatigue, Reports poor appetite, Reports weakness Eyes: denies as per HPI, denies blurred vision, denies bulging eye, denies decreased vision, denies diplopia, denies discharge, denies dry eye, denies irritation, denies itching, denies pain, denies photophobia, denies loss of peripheral vision, denies loss of vision, denies tunnel vision/blind spots Ears: right: decreased hearing, deny: ear discharge, earache, tinnitus Ears, nose, mouth and throat: Denies headache, Denies sore throat Cardiovascular: Reports decreased exercise tolerance, Reports dyspnea on exertion, Reports shortness of breath Respiratory: Reports dyspnea, Reports home oxygen, Reports wheezing Gastrointestinal: Denies abdominal pain, Denies diarrhea, Denies nausea, Denies vomiting Genitourinary: Reports as per HPI Musculoskeletal: Reports as per HPI Musculoskeletal: absent: ankle pain, ankle stiffness, ankle swelling Neurological: Denies numbness, Denies weakness Psychiatric: Reports as per HPI Endocrine: Reports as per HPI Hematologic/Lymphatic: Reports as per HPI Allergic/Immunologic: Reports as per HPI Past Medical History Past Medical History: Blood Disorder, Coronary Artery Disease (CAD), COPD, CVA/TIA, Eye Disorder, GERD/Reflux, GI Bleed, Hearing Disorder / Deafness, Hyperlipidemia, Hypertension, Prostate Disorder, Respiratory Disorder, Sleep Apnea/CPAP/BIPAP, Thyroid Disorder Additional Past Medical History / Comment(s): Nonischemic cardiomyopathy, aortoenteric fistula/erosion with surgery x2-with graft/infection-on chronic antibiotic per pt, pulmonary HTN, interstitial lung disease, pulmonary fibrosis, CADENCE with no device used since steroid therapy per pt, several TIAs, ITP, 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 History of Any Multi-Drug Resistant Organisms: None Reported Past Surgical History: Appendectomy, Back Surgery, Bowel Resection, Heart Catheterization, Hernia Repair, Orthopedic Surgery, Tonsillectomy Additional Past Surgical History / Comment(s): AAA repair, AAA redo at [facility] with gortex graft-insituaortoiliac bypass with small bowel resection, aortic valve surgery, lumbar laminectomy, bilateral knee arthroscopies, EGD, [place], colonoscopies, 2000 acoustic neuroma R side-eardrum removed, L foot neuroma removed, incisional hernias, bilateral inguinal hernia repairs, bilateral eyelid surgery Past Anesthesia/Blood Transfusion Reactions: No Reported Reaction Smoking Status: Former smoker - Past Family History Father Family Medical History: CVA/TIA Sister(s) Family Medical History: Diabetes Mellitus Mother Family Medical History: No Reported History Additional Family Medical History / Comment(s): Mother was healthy and lived to be 95 yrs old. Medications and Allergies Home Medications Medication Instructions Recorded Confirmed Type Amoxicillin/Potassium Clav 1 tab PO Q12HR 01/04/15 10/13/18 History [Augmentin 875-125 Tablet] Ciprofloxacin HCl [Cipro] 500 mg PO Q12HR 01/04/15 10/13/18 History Levothyroxine Sodium [Synthroid] 150 mcg PO DAILY 01/04/15 10/13/18 History Tiotropium Purvis [Spiriva 1 puff INHALATION RT-DAILY 06/27/17 10/13/18 History Respimat] predniSONE 20 mg PO Q48H 06/27/17 10/13/18 History Atorvastatin [Lipitor] 20 mg PO HS 10/13/18 10/13/18 History amLODIPine [Norvasc] 5 mg PO DAILY 10/13/18 10/13/18 History traMADol HCL [Ultram] 50 mg PO TID PRN 10/13/18 10/13/18 History traZODone HCL [Desyrel] 100 mg PO HS 10/13/18 10/13/18 History Allergies Allergy/AdvReac Type Severity Reaction Status Date / Time DILLON Inhibitors Allergy Swelling Verified 10/13/18 11:02 Physical Exam Vitals: Vital Signs Temp Pulse Pulse Resp BP BP Pulse Ox 10/14/18 12:47 92 10/14/18 12:25 96 10/14/18 12:00 97.6 F 93 18 149/75 94 L 10/14/18 08:38 98.1 F 87 18 116/77 95 10/14/18 08:33 89 10/14/18 08:20 87 20 96 10/14/18 04:00 97.5 F L 78 16 128/77 95 10/14/18 03:45 20 10/13/18 23:43 97.6 F 85 20 109/67 93 L 10/13/18 23:31 18 09/04/19 20:03 90 10/13/18 20:00 97.7 F 84 18 112/68 93 L 10/13/18 19:52 92 10/13/18 18:39 98 F 99 18 102/67 90 L 10/13/18 17:09 97.8 F 93 18 123/66 93 L 10/13/18 15:43 90 18 123/65 94 L Intake and Output 10/14/18 10/14/18 10/14/18 06:59 14:59 22:59 Intake Total 100 960 Balance 100 960 Intake: Oral 100 960 Other: Voiding Method Toilet Toilet # Voids 2 1 Weight 80.9 kg 80.9 kg In appearance, comfortable likely distress Head exam was generally normal. There was no scleral icterus or corneal arcus. Mucous membranes were moist. Right facial weakness related to previous acoustic neuroma surgery Neck was supple and without jugular venous distension, thyromegaly, or carotid bruits. Carotids were easily palpable bilaterally. There was no adenopathy. Lungs sounds are diminished bilaterally along with some coarse crackles in the mid and lower lung mario and the patient has Velcro crackles Cardiac exam revealed the PMI to be normally situated and sized. The rhythm was regular and no extrasystoles were noted during several minutes of auscultation. The first and second heart sounds were normal and physiologic splitting of the second heart sound was noted. There were no murmurs, rubs, clicks, or gallops. Abdominal exam revealed normal bowel sounds. The abdomen was soft, non-tender, and without masses, organomegaly, or appreciable enlargement of the abdominal aorta. Examination of the extremities revealed easily palpable radial, femoral and pedal pulses. There was no cyanosis, clubbing or edema. Examination of the skin revealed no evidence of significant rashes, suspicious appearing nevi or other concerning lesions. Neurologically the patient is awake and alert and there is no focal neurological deficits. Results - Laboratory Findings CBC and BMP: 10/14/18 05:52 10/14/18 05:52 PT/INR, D-dimer PT 10.8 sec (9.0-12.0) 10/13/18 11:12 INR 1.0 (<1.2) 10/13/18 11:12 Abnormal lab findings: Abnormal Labs 10/13/18 10/13/18 10/13/18 11:12 11:12 11:12 Plt Count 59 L Neutrophils # 8.5 H Lymphocytes # 0.4 L Sodium BUN 25 H Creatinine 2.09 H Glucose 140 H POC Glucose (mg/dL) ALT 16 L Troponin I 0.896 H* Total Protein 6.2 L HDL Cholesterol Urine Protein Urine Ketones Hyaline Casts Urine Mucus 10/13/18 10/13/18 10/13/18 17:41 20:54 23:50 Plt Count Neutrophils # Lymphocytes # Sodium BUN Creatinine Glucose POC Glucose (mg/dL) 185 H ALT Troponin I 0.836 H* 0.718 H* Total Protein HDL Cholesterol Urine Protein Urine Ketones Hyaline Casts Urine Mucus 10/14/18 10/14/18 10/14/18 00:02 05:52 05:52 Plt Count 63 L Neutrophils # Lymphocytes # 0.3 L Sodium 136 L BUN 31 H Creatinine 1.57 H Glucose 151 H POC Glucose (mg/dL) ALT Troponin I Total Protein HDL Cholesterol 38 L Urine Protein 1+ H Urine Ketones 1+ H Hyaline Casts 7 H Urine Mucus Rare H 10/14/18 10/14/18 06:16 11:39 Plt Count Neutrophils # Lymphocytes # Sodium BUN Creatinine Glucose POC Glucose (mg/dL) 165 H 177 H ALT Troponin I Total Protein HDL Cholesterol Urine Protein Urine Ketones Hyaline Casts Urine Mucus - Diagnostic Findings CT scan - chest: image reviewed Assessment and Plan Plan: 1 severe COPD/pulmonary fibrosis and 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 Patient presented with worsening dyspnea and the patient's chest x-ray was negative for any acute abnormalities and the findings are essentially chronic. Rule out a component of exacerbation of his underlying chronic obstructive lung disease 3 limited troponin elevation, nonspecific, awaiting cardiology evaluation 4 right hip pain related to a mechanical fall without evidence of any fracture 5 acute kidney injury likely secondary to dehydration, creatinine is improving as the patient is being hydrated with IV fluids. 6 ITP with chronic thrombocytopenia 7 hypertension 8 hyperlipidemia 9 hypothyroidism 10 history of aortic enteric fistula surgically repaired and the patient has been taken lifelong antibiotic prophylaxis 11 concentric LVH with diastolic heart failure 12 moderate to severe pulmonary hypertension secondary to chronic lung disease 13 CVA with previous episodes of TIAs 14 acoustic neuroma with previous surgical resection followed by radiation therapy 15 obstructive sleep apnea noncompliant to CPAP therapy Plan No signs of any acute infection. Continue Augmentin. Continue DuoNeb about treatments around the clock. Continue IV Solu Medrol and transitions patient to prednisone burst taper within next 24 hours. The patient has maintained on prednisone on a chronic basis with a dose of 20 mg every other day. This will be continued in addition to his routine maintenance respiratory medication will include a combination of Spiriva and Symbicort. Case discussed with the medical team. We'll continue to follow.
[2018-10-14] MEDS ORDERED: BENZOCAINE/MENTHOL LOZENG 1 EACH LOZENGE MUCOUS MEM PRN (15:54)
[2018-10-14] MEDS: methylPREDNISolone SOD SUCCI 40 MG/ML 1 ML VIAL IV SCH ×2 (16:18→23:10)
[2018-10-14 16:46] LABS: Glucose,Whole Blood 145 mg/dL (75-99)
--- NOTE | 2018-10-14 17:15 | P.PN ---
Subjective Progress Note Date: 10/14/18 (delayed charting seen at 1130) Principal diagnosis: shortness o breath and hip pain Patient is a 78-year-old male with a past medical history of 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 Mcghee and on chronic antibiotic secondary to infection is unable to go repeat surgery, severe pulmonary fibrosis, hypertension, hypothyroidism, and dyslipidemia who presented to the ER with complaints of shortness of breath, hip pain, and overall not feeling well. In the ER he underwent an extensive evaluation. On initial presentation he was hypotensive with a blood pressure 93/62 and a pulse of 106. He is also found to be hypoxic at 86% on room air. I nitial laboratory analysis showed thrombocytopenia with platelets of 59, sodium 140, creatinine 2.09, BUN 25, an elevated troponin at 0.869. CT of the hip was completed which showed arthritis but no definitive fracture, chest x-ray showed pulmonary fibrosis. He was started on IV fluids, aspirin, and heparin drip. He was admitted for further monitoring of his hypotension, hip pain, and hypoxemia. Heparin drip was discontinued secondary to low platelet count. He was started on steroids due to acute exacerbation of pulmonary fibrosis. IV fluids were discontinued due to dehydration. He was seen by cardiology who felt that his elevated troponins secondary to acute kidney injury and hypoxemia. Echocardiogram was completed which showed ejection fraction 55-60%, severe concentric LVH, moderate to severe aortic regurgitation, and moderate to severe pulmonary hypertension with RVSP 55.69. Decannulate the patient had abruptly stopped all his medications 3 days prior to admission secondary to severe pain, inability to ambulate due to the pain, and poor appetite. Patient had also not eat or drink anything in 3 days on admission. Patient seen and examined at bedside. He states his breathing is much better, weakness has resolved, he states he feels almost back to baseline. No chest pain, no nausea, no vomiting. Patient has multiple questions regarding his long-term prognosis for pulmonary fibrosis. He also expresses frustration as he has been told not to undergo surgery for repair of his aortic aneurysm lungs due to his severe pulmonary fibrosis. We discussed that with severe lung disease surgery is not recommended as he likely would not tolerate this. We discussed that many of his symptoms likely occurred from abrupt cessation of his chronic prednisone use. He felt much better when IV Solu-Medrol was restarted. Troponins remained flat and not consistent with acute coronary syndrome. Objective - Vital Signs Vital signs: Vital Signs Temp 97.6 F 10/14/18 12:00 Pulse 92 10/14/18 15:41 Resp 18 10/14/18 12:00 BP 149/75 10/14/18 12:00 Pulse Ox 94 L 10/14/18 12:00 Intake & Output 10/13/18 10/14/18 10/14/18 18:59 06:59 18:59 Intake Total 100 960 Balance 100 960 Weight 79.832 kg 80.9 kg 80.9 kg Intake: Oral 100 960 Other: Voiding Method Toilet Toilet Toilet # Voids 1 2 1 - Exam General: non toxic, no distress, appears at stated age Derm: warm, dry Head: atraumatic, normocephalic, symmetric Eyes: EOMI, no lid lag, anicteric sclera Mouth: no lip lesion, mucus membranes moist Cardiovascular: S1S2 reg, no murmur, positive posterior tibial pulse bilateral, Lungs: Faint crackles bilateral bases, no accessory muscle use Abdominal: soft, nontender to palpation, no guarding, no appreciable organomega ly Ext: no gross muscle atrophy, no edema, no contractures Neuro: CN II-XI grossly intact, no focal neuro deficits Psych: Alert, oriented, appropriate affect - Labs CBC & Chem 7: 10/14/18 05:52 10/14/18 05:52 Labs: Abnormal Lab Results - Last 24 Hours (Table) 10/13/18 10/13/18 10/13/18 Range/Units 17:41 20:54 23:50 Plt Count (150-450) k/uL Lymphocytes # (1.0-4.8) k/uL Sodium (137-145) mmol/L BUN (9-20) mg/dL Creatinine (0.66-1.25) mg/dL Glucose (74-99) mg/dL POC Glucose (mg/dL) 185 H (75-99) mg/dL Troponin I 0.836 H* 0.718 H* (0.000-0.034) ng/mL HDL Cholesterol (40-60) mg/dL Urine Protein (Negative) Urine Ketones (Negative) Hyaline Casts (0-2) /lpf Urine Mucus (None) /hpf 10/14/18 10/14/18 10/14/18 Range/Units 00:02 05:52 05:52 Plt Count 63 L (150-450) k/uL Lymphocytes # 0.3 L (1.0-4.8) k/uL Sodium 136 L (137-145) mmol/L BUN 31 H (9-20) mg/dL Creatinine 1.57 H (0.66-1.25) mg/dL Glucose 151 H (74-99) mg/dL POC Glucose (mg/dL) (75-99) mg/dL Troponin I (0.000-0.034) ng/mL HDL Cholesterol 38 L (40-60) mg/dL Urine Protein 1+ H (Negative) Urine Ketones 1+ H (Negative) Hyaline Casts 7 H (0-2) /lpf Urine Mucus Rare H (None) /hpf 10/14/18 10/14/18 10/14/18 Range/Units 06:16 11:39 16:45 Plt Count (150-450) k/uL Lymphocytes # (1.0-4.8) k/uL Sodium (137-145) mmol/L BUN (9-20) mg/dL Creatinine (0.66-1.25) mg/dL Glucose (74-99) mg/dL POC Glucose (mg/dL) 165 H 177 H 145 H (75-99) mg/dL Troponin I (0.000-0.034) ng/mL HDL Cholesterol (40-60) mg/dL Urine Protein (Negative) Urine Ketones (Negative) Hyaline Casts (0-2) /lpf Urine Mucus (None) /hpf Assessment and Plan Assessment: Acute exacerbation of COPD/pulmonary fibrosis -Decrease IV steroids, continue with bronchodilators -Pulmonary hygiene -Pulmonary recommendations appreciated Acute hypoxic respiratory failure -Likely secondary to above -Wean O2 as able Adrenal insufficiency secondary to abrupt withdrawal of oral steroids -Decrease IV Solu-Medrol -Plan on prednisone 20 mg daily for 3 days and he leaves the hospital, then patient to resume his 20 mg every other day Hypertension -One episode of elevated blood pressures. However patient came in significantly hypotensive. Hold off on starting aggressive blood pressure medications. Also need to be cautious with use of beta blockers secondary to significant lung disease. Acute kidney injury on CKD with III with baseline Cr 1.4, secondary to dehy dration -Stop IV fluids -Repeat basic metabolic profile in a.m. -Discontinue Cozaar with recent WHITNEY allowing the kidneys to have time for reperfusion. Elevated troponin, likely nonspecific -Per cardiology not consistent with acute coronary syndrome -No additional testing planned at this time -Follow up with Dr. Mcghee on discharge -Continue aspirin, statin Chronic ITP with thrombocytopenia -Follow CBC -Outpatient follow-up Chronic: Hypertension, dyslipidemia, hypothyroidism, aortic enteric fistula surgically repaired and on lifelong antibiotics, diastolic congestive heart failure currently compensated, moderate to severe pulmonary hypertension, obstructive sleep apnea noncompliant with CPAP therapy Mechanical fall with resultant arthritis flare of right hip -Continue with pain control -PT/OT recommends [facility] secondary to patient being off balance. However this is a chronic issue after his closed I. After much discussion with patient he is not willing to go to [facility] facility however he is amenable to home health care. DVT prophylaxis: SCDS Discussed with: Patient, pulmonary Anticipated discharge: in AM Anticipated discharge place: home with home health A total of 50 minutes was spent on the care of this complex patient more than 50% of the time was spent in counseling and care coordination.
[2018-10-14] MEDS: ATORVASTATIN 20 MG TAB PO SCH (20:59)
[2018-10-14] MEDS: traZODone HCL 100 MG TAB PO SCH (20:59)
[2018-10-14] MEDS ORDERED: MELATONIN 3 MG TABLET PO SCH (21:00)
[2018-10-14 21:15] LABS: Glucose,Whole Blood 148 mg/dL (75-99)
--- NOTE | 2018-10-14 22:30 | PN ---
PROGRESS NOTE This patient has came with hip pain. The patient had a history of fall. The patient was dehydrated and had acute on chronic renal failure. The patient did not complain of any chest pain. Patient has a severe pulmonary fibrosis and he had a low PO2. The patient had a mildly elevated troponin without any significant rise and fall and it is not suggestive for type 1 acute coronary syndrome. The patient's echocardiogram shows evidence of severe degree of left ventricular hypertrophy. The patient has a moderate degree of aortic regurgitation secondary to dilated aortic root. The patient's blood pressure is 140/75 mmHg. Heart S1 and S2 normal. Lungs reveal bilateral scattered rales. We will start the patient on Cozaar 25 mg daily and Lopressor is increased. The patient is also started on metoprolol succinate 25 mg daily. Patient can be ambulated. We will do a procalcitonin level to rule out any significant bacterial infection. If the patient remains fairly good, he can be discharged home in next 24 hours. JAROD / MALIKAN: [id number] /
[2018-10-15] MEDS: traMADol 50 MG TAB PO PRN (02:30)
[2018-10-15] MEDS: ACETAMINOPHEN TAB 325 MG TAB PO PRN ×2 (02:30→14:51)
[2018-10-15 06:01] LABS: Glucose,Whole Blood 155 mg/dL (75-99)
[2018-10-15] MEDS: LEVOTHYROXINE 75 MCG TAB PO SCH (06:53)
[2018-10-15 07:14] LABS: Calcium 8.5 mg/dL (8.4-10.2); Potassium 4.7 mmol/L (3.5-5.1)
[2018-10-15] MEDS: IPRATROPIUM-ALBUTEROL 3 ML NEB INHALATION SCH ×2 (08:05→11:18)
[2018-10-15] MEDS ORDERED: LOSARTAN 25 MG TAB PO SCH ×2 (09:00→10:15)
[2018-10-15] MEDS ORDERED: ASPIRIN 81 MG PO SCH (09:00)
[2018-10-15 09:16] LABS: HCT 37.2 % (39.0-53.0); HGB 12.5 gm/dL (13.0-17.5); MCH 30.4 pg (25.0-35.0); MCHC 33.5 g/dL (31.0-37.0); MCV 90.8 fL (80.0-100.0); Mean Platelet Volume 10.1; RDW 15.5 % (11.5-15.5); WBC 8.8 k/uL (3.8-10.6)
[2018-10-15 09:17] LABS: Platelet Count 86 k/uL (150-450)
[2018-10-15] MEDS: methylPREDNISolone SOD SUCCI 40 MG/ML 1 ML VIAL IV SCH (09:24)
[2018-10-15] MEDS: METOPROLOL SUCCINATE (ER) 25 MG TAB.ER.24H PO SCH (09:25)
[2018-10-15] MEDS: AMOXIC-POT CLAV 875-125MG 1 EACH TAB PO SCH (09:25)
[2018-10-15] MEDS: CIPROFLOXACIN HCL 500 MG TAB PO SCH (09:25)
[2018-10-15 11:39] VITALS: PULSE 72; RESP 16
[2018-10-15 11:42] VITALS: BP 147/73; TEMP 98.4
[2018-10-15 11:57] LABS: Glucose,Whole Blood 119 mg/dL (75-99)
--- NOTE | 2018-10-15 12:36 | P.DS ---
Providers Date of admission: 10/13/18 13:34 Expected date of discharge: 10/15/18 Attending physician: Queta Jacinto MD Consults: 10/13/18 13:34 Consult Physician Urgent Consulting Provider: Felipe Dallas Consult Reason/Comments: nstemi Do you want consulting provider notified?: Yes 10/13/18 16:33 Consult Physician Stat Consulting Provider: Negrita Linda Consult Reason/Comments: pul fibrosis, acute hypoxic resp failure Do you want consulting provider notified?: Yes Primary care physician: Malik [facility] Course: Discharge Diagnosis: Acute exacerbation of COPD and Pulmonary fibrosis Acute hypoxic respiratory failure Right hip pain due arthritis and mechanical fall Adrenal insufficiency secondary to abrupt withdrawal of oral steroids Hypertension Acute kidney injury on chronic kidney disease stage III secondary to dehydration Elevated troponin, not affect Chronic ITP with thrombocytopenia Hyponatremia, chronic in near baseline Hypertension Dyslipidemia Hypothyroidism 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 Mcghee and on chronic antibiotic secondary to infection is unable to go repeat surgery, severe pulmonary fibrosis, hypertension, hypothyroidism, and dyslipidemia who presented to the ER with complaints of shortness of breath, hip pain, and overall not feeling well. In the ER he underwent an extensive evaluation. On initial presentation he was hypotensive with a blood pressure 93/62 and a pulse of 106. He is also found to be hypoxic at 86% on room air. Initial laboratory analysis showed thrombocytopenia with platelets of 59, sodium 140, creatinine 2.09, BUN 25, an elevated troponin at 0.869. CT of the hip was completed which showed arthritis but no definitive fracture, chest x-ray showed pulmonary fibrosis. He was started on IV fluids, aspirin, and heparin drip. He was admitted for further monitoring of his hypotension, hip pain, and hypoxemia. Heparin drip was discontinued secondary to low platelet count. He was started on steroids due to acute exacerbation of pulmonary fibrosis. IV fluids were discontinued due to dehydration. He was seen by cardiology who felt that his elevated troponins secondary to acute kidney injury and hypoxemia. Echocardiogram was completed which showed ejection fraction 55-60%, severe concentric LVH, moderate to severe aortic regurgitation, and moderate to severe pulmonary hypertension with RVSP 55.69. It came to light that the patient had abruptly stopped all his medications 3 days prior to admission secondary to severe pain, inability to ambulate due to the pain, and poor appetite. Patient had also not eat or drink anything in 3 days on admission. With resumption of his steroids had a rapid improvement in his breathing and felt back to baseline. He was noted to have slightly elevated blood pressures and metoprolol was started, Cozaar was suggested however due to his chronic kidney disease and recent WHITNEY he was not discharged home with this medication. He also does not tolerate aspirin and had GI bleed on aspirin in the past. He was ambulated and required oxygen due to low pulse ox. He was determined stable for discharge home. He will follow-up with Dr. Tate next week, Dr. Mcghee in the 1-2 weeks, and his [facility]ender next week. Patient seen and examined at bedside. No Chest pain, shortness of breath is at baseline. No nausea, vomiting, or diarrhea. Feeling well. Vital signs reviewed and stable. General: non toxic, no distress, appears at stated age Derm: warm, dry Head: atraumatic, normocephalic, symmetric Eyes: EOMI, no lid lag, anicteric sclera Mouth: no lip lesion, mucus membranes moist Cardiovascular: S1S2 reg, no murmur, positive posterior tibial pulse bilateral, Lungs: Faint crackles bilateral , no accessory muscle use Abdominal: soft, nontender to palpation, no guarding, no appreciable organomegaly Ext: no gross muscle atrophy, no edema, no contractures Neuro: CN II-XI grossly intact, no focal neuro deficits Psych: Alert, oriented, appropriate affect Patient was ambulated on room air dropped to 81%. Due to his severe COPD and pulmonary fibrosis he will require home oxygen 01/09 and he was 88% on room air at rest and 81% with ambulation. A total of 35 minutes of time were spent preparing this complex discharge summary . Pertinent Studies: Chest [id number] fibrosis Hip CT-no acute fracture, arthritic changes Echo-Ejection fraction 55-60%, severe concentric LVH Patient Condition at Discharge: Fair Plan - Discharge Summary Discharge Rx Participant: No New Discharge Prescriptions: New Metoprolol Succinate (ER) [Toprol XL] 25 mg PO DAILY #30 tab.er.24h Continue Levothyroxine Sodium [Synthroid] 150 mcg PO DAILY Ciprofloxacin HCl [Cipro] 500 mg PO Q12HR Amoxicillin/Potassium Clav [Augmentin 875-125 Tablet] 1 tab PO Q12HR predniSONE 20 mg PO Q48H Tiotropium Datto [Spiriva Respimat] 1 puff INHALATION RT-DAILY amLODIPine [Norvasc] 5 mg PO DAILY Atorvastatin [Lipitor] 20 mg PO HS traZODone HCL [Desyrel] 100 mg PO HS traMADol HCL [Ultram] 50 mg PO TID PRN PRN Reason: Pain Discharge Medication List Amoxicillin/Potassium Clav [Augmentin 875-125 Tablet] 1 tab PO Q12HR 01/04/15 [History] Ciprofloxacin HCl [Cipro] 500 mg PO Q12HR 01/04/15 [History] Levothyroxine Sodium [Synthroid] 150 mcg PO DAILY 01/04/15 [History] Tiotropium Datto [Spiriva Respimat] 1 puff INHALATION RT-DAILY 06/27/17 [History] predniSONE 20 mg PO Q48H 06/27/17 [History] Atorvastatin [Lipitor] 20 mg PO HS 10/13/18 [History] amLODIPine [Norvasc] 5 mg PO DAILY 10/13/18 [History] traMADol HCL [Ultram] 50 mg PO TID PRN 10/13/18 [History] traZODone HCL [Desyrel] 100 mg PO HS 10/13/18 [History] Metoprolol Succinate (ER) [Toprol XL] 25 mg PO DAILY #30 tab.er.24h 10/15/18 [Rx] Follow up Appointment(s)/Referral(s): [facility], [NON-STAFF] - Malik Tate MD [Primary Care Provider] - 1-2 days Activity/Diet/Wound Care/Special Instructions: Patient requires home oxgyen at discharge secondary to hypoxia from pulmonary fibrosis/copd - Home Oxygen ordered through [facility] - [phone] Diet: regular Activity: as tolerated Follow-up with your explosive man in 1-2 weeks
--- NOTE | 2018-10-15 15:35 | P.PN ---
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 Mcghee and on chronic antibiotic secondary to infection is unable to go repeat surgery, severe pulmonary fibrosis, hypertension, hypothyroidism, and dyslipidemia who presented to the ER with complaints of shortness of breath, hip pain, and overall not feeling well. In the ER he underwent an extensive evaluation. On initial presentation he was hypotensive with a blood pressure 93/62 and a pulse of 106. He is also found to be hypoxic at 86% on room air. Initial laboratory analysis showed thrombocytopenia with platelets of 59, sodium 140, creatinine 2.09, BUN 25, an elevated troponin at 0.869. CT of the hip was completed which showed arthritis but no definitive fracture, chest x-ray showed pulmonary fibrosis. He was started on IV fluids, aspirin, and heparin drip. He was admitted for further monitoring of his hypotension, hip pain, and hypoxemia. Heparin drip was discontinued secondary to low platelet count. He was started on steroids due to acute exacerbation of pulmonary fibrosis. IV fluids were discontinued due to dehydration. He was seen by cardiology who felt that his elevated troponins secondary to acute kidney injury and hypoxemia. Echoca rdiogram was completed which showed ejection fraction 55-60%, severe concentric LVH, moderate to severe aortic regurgitation, and moderate to severe pulmonary hypertension with RVSP 55.69. It came to light that the patient had abruptly stopped all his medications 3 days prior to admission secondary to severe pain, inability to ambulate due to the pain, and poor appetite. Patient had also not eat or drink anything in 3 days on admission. With resumption of his steroids had a rapid improvement in his breathing and felt back to baseline. He was noted to have slightly elevated blood pressures and metoprolol was started, Cozaar was also initiated today. Blood pressure 147/70 with a heart rate in the 70s today. Objective - Vital Signs Vital signs: Vital Signs Temp 98.4 F 10/15/18 11:15 Pulse 72 10/15/18 11:37 Resp 16 10/15/18 11:37 BP 147/73 10/15/18 11:15 Pulse Ox 95 10/15/18 11:15 Intake & Output 10/14/18 10/15/18 10/15/18 18:59 06:59 18:59 Intake Total 1440 360 Balance 1440 360 Weight 80.9 kg 83 kg Intake: Oral 1440 360 Other: Voiding Method Toilet Toilet Toilet # Voids 1 1 1 - Exam Vital signs reviewed and stable. General: non toxic, no distress, appears at stated age Derm: warm, dry Head: atraumatic, normocephalic, symmetric Eyes: EOMI, no lid lag, anicteric sclera Mouth: no lip lesion, mucus membranes moist Cardiovascular: S1S2 reg, no murmur, positive posterior tibial pulse bilateral, Lungs: Faint crackles bilateral , no accessory muscle use Abdominal: soft, nontender to palpation, no guarding, no appreciable organomegaly Ext: no gross muscle atrophy, no edema, no contractures Neuro: CN II-XI grossly intact, no focal neuro deficits Psych: Alert, oriented, appropriate affect - Labs CBC & Chem 7: 10/15/18 06:45 10/15/18 06:45 Labs: Abnormal Lab Results - Last 24 Hours (Table) 10/14/18 10/14/18 10/14/18 Range/Units 05:52 16:45 20:55 RBC (4.30-5.90) m/uL Hgb (13.0-17.5) gm/dL Hct (39.0-53.0) % Plt Count (150-450) k/uL Sodium (137-145) mmol/L BUN (9-20) mg/dL Creatinine (0.66-1.25) mg/dL Glucose (74-99) mg/dL POC Glucose (mg/dL) 145 H 148 H (75-99) mg/dL Procalcitonin 0.16 H (0.02-0.09) ng/mL 10/15/18 10/15/18 10/15/18 Range/Units 05:56 06:45 06:45 RBC 4.10 L (4.30-5.90) m/uL Hgb 12.5 L (13.0-17.5) gm/dL Hct 37.2 L (39.0-53.0) % Plt Count 86 L (150-450) k/uL Sodium 132 L (137-145) mmol/L BUN 44 H (9-20) mg/dL Creatinine 1.49 H (0.66-1.25) mg/dL Glucose 131 H (74-99) mg/dL POC Glucose (mg/dL) 155 H (75-99) mg/dL Procalcitonin (0.02-0.09) ng/mL 10/15/18 Range/Units 11:32 RBC (4.30-5.90) m/uL Hgb (13.0-17.5) gm/dL Hct (39.0-53.0) % Plt Count (150-450) k/uL Sodium (137-145) mmol/L BUN (9-20) mg/dL Creatinine (0.66-1.25) mg/dL Glucose (74-99) mg/dL POC Glucose (mg/dL) 119 H (75-99) mg/dL Procalcitonin (0.02-0.09) ng/mL Assessment and Plan Plan: Assessment and plan 1 severe COPD/pulmonary fibrosis and 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 3 limited troponin elevation, nonspecific, awaiting cardiology evaluation 4 right hip pain related to a mechanical fall without evidence of any fracture 5 acute kidney injury likely secondary to dehydration, creatinine is improving as the patient is being hydrated with IV fluids. 6 ITP with chronic thrombocytopenia 7 hypertension 8 hyperlipidemia 9 hypothyroidism 10 history of aortic enteric fistula surgically repaired and the patient has been taken lifelong antibiotic prophylaxis 11 concentric LVH with diastolic heart failure 12 moderate to severe pulmonary hypertension secondary to chronic lung disease 13 CVA with previous episodes of TIAs 14 acoustic neuroma with previous surgical resection followed by radiation therapy 15 obstructive sleep apnea noncompliant to CPAP therapy 16 dilated aortic root Plan Cardiology's perspective, we will add Cozaar to the patient's medication regime today. He may be able to be discharged home to follow-up post discharge. DNP note has been reviewed, I agree with a documented findings and plan of care. Patient was seen and examined.
== END 2018-10-15 14:53 | disposition home health service (06) | DRG 190 ==
LOC: EC 10:36 → 3SCARD 13:34
PROVIDERS: ADMIT Family Medicine; ATTEND Family Medicine
DX: J43.9 Emphysema, unspecified (principal); J96.21 Acute and chronic respiratory failure with hypoxia; N17.9 Acute kidney failure, unspecified; D69.3 Immune thrombocytopenic purpura; K52.1 Toxic gastroenteritis and colitis; I13.0 Hypertensive heart and chronic kidney disease with heart failure and stage 1 through stage 4 chronic kidney disease, or unspecified chronic kidney disease; I50.32 Chronic diastolic (congestive) heart failure; E27.40 Unspecified adrenocortical insufficiency; I24.8 Other forms of acute ischemic heart disease; I42.9 Cardiomyopathy, unspecified; E87.1 Hypo-osmolality and hyponatremia; I27.20 Pulmonary hypertension, unspecified; I95.9 Hypotension, unspecified; J84.10 Pulmonary fibrosis, unspecified; E86.0 Dehydration; I45.81 Long QT syndrome; N18.3 Chronic kidney disease, stage 3 (moderate); I45.10 Unspecified right bundle-branch block; I35.1 Nonrheumatic aortic (valve) insufficiency; T82.7XXD Infection and inflammatory reaction due to other cardiac and vascular devices, implants and grafts, subsequent encounter; E03.9 Hypothyroidism, unspecified; G47.33 Obstructive sleep apnea (adult) (pediatric); I25.10 Atherosclerotic heart disease of native coronary artery without angina pectoris; K21.9 Gastro-esophageal reflux disease without esophagitis; I77.810 Thoracic aortic ectasia; H91.91 Unspecified hearing loss, right ear; N40.1 Benign prostatic hyperplasia with lower urinary tract symptoms; R35.0 Frequency of micturition; M16.11 Unilateral primary osteoarthritis, right hip; E78.5 Hyperlipidemia, unspecified; R26.89 Other abnormalities of gait and mobility; R29.810 Facial weakness; T36.95XA Adverse effect of unspecified systemic antibiotic, initial encounter; T38.0X5A Adverse effect of glucocorticoids and synthetic analogues, initial encounter; Z91.19 Patient's noncompliance with other medical treatment and regimen; Z99.81 Dependence on supplemental oxygen; Z79.52 Long term (current) use of systemic steroids; Z79.890 Hormone replacement therapy; Z79.2 Long term (current) use of antibiotics; Z79.899 Other long term (current) drug therapy; Z87.891 Personal history of nicotine dependence; Z86.018 Personal history of other benign neoplasm; Z92.3 Personal history of irradiation; Z86.73 Personal history of transient ischemic attack (TIA), and cerebral infarction without residual deficits; Z99.89 Dependence on other enabling machines and devices; Z98.890 Other specified postprocedural states; Z77.22 Contact with and (suspected) exposure to environmental tobacco smoke (acute) (chronic); Z88.8 Allergy status to other drugs, medicaments and biological substances; W50.0XXA Accidental hit or strike by another person, initial encounter; Z83.3 Family history of diabetes mellitus; Z82.3 Family history of stroke
CPT/HCPCS: 36415; 71045; 71046; 80048; 80053; 80061; 81001; 83735; 83880; 84145; 84484; 85025; 85027; 85610; 85730; 93005; 93306; 94640; 94760; 96361; 96374; 96375; 99291

== ENCOUNTER 2019-12-17 01:40 | Observation (INO) | payer MEDICARE, BC ==
[2019-12-17] MEDS ORDERED: TOPICAL SKIN ADHESIVE 1 EACH AMP TOPICAL ONE (02:23)
--- NOTE | 2019-12-17 02:47 | ED ---
Fall HPI - General Chief Complaint: Fall Stated Complaint: fall Time Seen by Provider: 12/17/19 02:11 Source: EMS Mode of arrival: EMS - History of Present Illness Initial Comments: this patient is 79-year-old man who is here to be evaluated after a ground-level fall at home. He indicates that he landed striking his right eyebrow and right arm. Patient then was too weak to get up from the floor. Denies any other injury. No chest pain or dyspnea. No fever or chills. MD Complaint: fall Onset/Timin -: hour(s) Fall From: standing When Fall Occurred: 1 hour [employer] Fall Witnessed: no Place Fall Occurred: home Loss of Consciousness: none Prolonged Down Time?: no Symptoms Prior to Fall: dizziness Location: face Severity: mild Context: tripped/slipped - Related Data Home Medications Medication Instructions Recorded Confirmed Amoxicillin/Potassium Clav 1 tab PO BID 01/04/15 12/17/19 [Augmentin 875-125 Tablet] Levothyroxine Sodium [Synthroid] 150 mcg PO DAILY 01/04/15 12/17/19 Tiotropium [place] [Spiriva 1 puff INHALATION RT-DAILY 06/27/17 12/17/19 Respimat] predniSONE [Deltasone] 20 mg PO Q48H 06/27/17 12/17/19 Atorvastatin [Lipitor] 20 mg PO HS 10/13/18 12/17/19 amLODIPine [Norvasc] 5 mg PO DAILY 10/13/18 12/17/19 traZODone HCL [Desyrel] 100 mg PO HS 10/13/18 12/17/19 Calcium Carbonate [Calcium] 600 mg PO DAILY 12/17/19 12/17/19 Cholecalciferol [Vitamin D3 (25 2,000 unit PO DAILY 12/17/19 12/17/19 Mcg = 1000 Iu)] Fexofenadine HCl [Aura Allergy] 180 mg PO DAILY 12/17/19 12/17/19 Previous Rx's Medication Instructions Recorded Carvedilol [Coreg] 6.25 mg PO BID #0 12/18/19 Ciprofloxacin HCl [Cipro] 500 mg PO BID #0 12/18/19 Allergies Allergy/AdvReac Type Severity Reaction Status Date / Time DILLON Inhibitors Allergy Swelling Verified 12/17/19 07:58 Review of Systems ROS Statement: Those systems with pertinent positive or pertinent negative responses have been documented in the HPI. ROS Other: All systems not noted in ROS Statement are negative. Constitutional: Reports: weakness (eneralized). Denies: fever, chills Respiratory: Denies: cough, dyspnea Cardiovascular: Denies: chest pain, palpitations, edema, syncope Gastrointestinal: Denies: abdominal pain, vomiting, diarrhea, melena, hematochezia Genitourinary: Denies: dysuria, hematuria Musculoskeletal: Denies: back pain Skin: Denies: rash Neurological: Denies: headache, weakness, numbness Past Medical History Past Medical History: Blood Disorder, Coronary Artery Disease (CAD), COPD, CVA/TIA, Eye Disorder, GERD/Reflux, GI Bleed, Hearing Disorder / Deafness, Hyperlipidemia, Hypertension, Prostate Disorder, Respiratory Disorder, Sleep Apnea/CPAP/BIPAP, Thyroid Disorder Additional Past Medical History / Comment(s): Nonischemic cardiomyopathy, aortoenteric fistula/erosion with surgery x2-with graft/infection-on chronic antibiotic per pt, pulmonary HTN, interstitial lung disease, pulmonary fibrosis, CADENCE with no device used since steroid therapy per pt, several TIAs, ITP, 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 History of Any Multi-Drug Resistant Organisms: None Reported Past Surgical History: Appendectomy, Back Surgery, Bowel Resection, Heart Catheterization, Hernia Repair, Orthopedic Surgery, Tonsillectomy Additional Past Surgical History / Comment(s): AAA repair, AAA redo at [facility] with gortex graft-insituaortoiliac bypass with small bowel resection, aortic valve surgery, lumbar laminectomy, bilateral knee arthroscopies, EGD, [place], colonoscopies, 2000 acoustic neuroma R side-eardrum removed, L foot neuroma removed, incisional hernias, bilateral inguinal hernia repairs, bilateral eyelid surgery Past Anesthesia/Blood Transfusion Reactions: No Reported Reaction Past Psychological History: No Psychological Hx Reported Smoking Status: Former smoker Past Alcohol Use History: None Reported, Abuse Past Drug Use History: None Reported - Past Family History Father Family Medical History: CVA/TIA Sister(s) Family Medical History: Diabetes Mellitus Mother Family Medical History: No Reported History Additional Family Medical History / Comment(s): Mother was healthy and lived to be 95 yrs old. General Exam Limitations: no limitations General appearance: alert, in no apparent distress Head exam: Present: atraumatic, normocephalic Eye exam: Present: PERRL, EOMI, periorbital swelling (right sided periorbital contusion and approximately 1 cm laceration to the right eyebrow). Absent: scl eral icterus, conjunctival injection ENT exam: Present: normal oropharynx Neck exam: Present: normal inspection, full ROM. Absent: tenderness Respiratory exam: Present: normal lung sounds bilaterally. Absent: respiratory distress, wheezes, rales, rhonchi, stridor, chest wall tenderness Cardiovascular Exam: Present: regular rate, normal rhythm, normal heart sounds. Absent: systolic murmur, diastolic murmur, rubs, gallop Extremities exam: Present: normal inspection, normal capillary refill. Absent: pedal edema, calf tenderness Back exam: Present: normal inspection. Absent: CVA tenderness (R), CVA tenderness (L), paraspinal tenderness, vertebral tenderness Neurological exam: Present: alert, CN II-XII intact. Absent: motor sensory deficit Skin exam: Present: warm, dry, normal color, other (laceration as above). Absent: rash Course Vital Signs 12/17/19 12/17/19 01:42 03:59 Temperature 98.9 F Pulse Rate 92 81 Respiratory 18 18 Rate Blood Pressure 122/76 132/70 O2 Sat by Pulse 94 L 92 L Oximetry Procedures - Laceration Laceration #1 Consent Obtained: verbal consent Indication: laceration Site: face Size (cm): 1 Description: linear Depth: simple, single layer Type of Sutures: other (skin adhesive) Patient Tolerated Procedure: well, no complications Additional Comments: small abrasion to the right eyebrow which is well approximated and closed with skin adhesive. Medical Decision Making - Medical Decision Making Patient is 79-year-old man presenting to be evaluated after ground-level fall. He is too weak to ambulate after the evaluation, and will be admitted for proba ble rehabilitation placement. - Lab Data Result diagrams: 12/17/19 02:33 12/18/19 05:54 Lab Results 12/17/19 12/17/19 12/17/19 Range/Units 02:33 02:33 02:33 WBC 7.3 (3.8-10.6) k/uL RBC 5.22 (4.30-5.90) m/uL Hgb 15.5 (13.0-17.5) gm/dL Hct 49.0 (39.0-53.0) % MCV 93.8 (80.0-100.0) fL MCH 29.7 (25.0-35.0) pg MCHC 31.7 (31.0-37.0) g/dL RDW 14.0 (11.5-15.5) % Plt Count 72 L (150-450) k/uL Neutrophils % 83 % Lymphocytes % 4 % Monocytes % 9 % Eosinophils % 3 % Basophils % 0 % Neutrophils # 6.1 (1.3-7.7) k/uL Lymphocytes # 0.3 L (1.0-4.8) k/uL Monocytes # 0.7 (0-1.0) k/uL Eosinophils # 0.2 (0-0.7) k/uL Basophils # 0.0 (0-0.2) k/uL Manual Slide Review Performed PT 10.9 (9.0-12.0) sec INR 1.1 (<1.2) APTT 23.8 (22.0-30.0) sec Sodium (137-145) mmol/L Potassium (3.5-5.1) mmol/L Chloride (98-107) mmol/L Carbon Dioxide (22-30) mmol/L Anion Gap mmol/L BUN (9-20) mg/dL Creatinine (0.66-1.25) mg/dL Est GFR (CKD-EPI)AfAm (>60 ml/min/1.73 sqM) Est GFR (CKD-EPI)NonAf (>60 ml/min/1.73 sqM) Glucose (74-99) mg/dL Plasma Lactic Acid Giles (0.7-2.0) mmol/L Calcium (8.4-10.2) mg/dL Magnesium (1.6-2.3) mg/dL Total Bilirubin (0.2-1.3) mg/dL AST (17-59) U/L ALT (4-49) U/L Alkaline Phosphatase (38-126) U/L Troponin I (0.000-0.034) ng/mL Total Protein (6.3-8.2) g/dL Albumin (3.5-5.0) g/dL TSH (0.465-4.680) mIU/L Urine Color Yellow Urine Appearance Clear (Clear) Urine pH 6.0 (5.0-8.0) Ur Specific [place] 1.019 (1.001-1.035) Urine Protein Trace H (Negative) Urine Glucose (UA) Negative (Negative) Urine Ketones Negative (Negative) Urine Blood Negative (Negative) Urine Nitrite Negative (Negative) Urine Bilirubin Negative (Negative) Urine Urobilinogen <2.0 (<2.0) mg/dL Ur Leukocyte Esterase Negative (Negative) 12/17/19 12/17/19 12/17/19 Range/Units 02:33 02:33 02:33 WBC (3.8-10.6) k/uL RBC (4.30-5.90) m/uL Hgb (13.0-17.5) gm/dL Hct (39.0-53.0) % MCV (80.0-100.0) fL MCH (25.0-35.0) pg MCHC (31.0-37.0) g/dL RDW (11.5-15.5) % Plt Count (150-450) k/uL Neutrophils % % Lymphocytes % % Monocytes % % Eosinophils % % Basophils % % Neutrophils # (1.3-7.7) k/uL Lymphocytes # (1.0-4.8) k/uL Monocytes # (0-1.0) k/uL Eosinophils # (0-0.7) k/uL Basophils # (0-0.2) k/uL Manual Slide Review PT (9.0-12.0) sec INR (<1.2) APTT (22.0-30.0) sec Sodium 134 L (137-145) mmol/L Potassium 4.6 (3.5-5.1) mmol/L Chloride 105 (98-107) mmol/L Carbon Dioxide 25 (22-30) mmol/L Anion Gap 4 mmol/L BUN 25 H (9-20) mg/dL Creatinine 1.23 (0.66-1.25) mg/dL Est GFR (CKD-EPI)AfAm 65 (>60 ml/min/1.73 sqM) Est GFR (CKD-EPI)NonAf 57 (>60 ml/min/1.73 sqM) Glucose 102 H (74-99) mg/dL Plasma Lactic Acid Giles 1.1 (0.7-2.0) mmol/L Calcium 8.5 (8.4-10.2) mg/dL Magnesium 1.9 (1.6-2.3) mg/dL Total Bilirubin 0.7 (0.2-1.3) mg/dL AST 54 (17-59) U/L ALT 13 (4-49) U/L Alkaline Phosphatase 49 (38-126) U/L Troponin I 0.016 (0.000-0.034) ng/mL Total Protein 5.7 L (6.3-8.2) g/dL Albumin 3.1 L (3.5-5.0) g/dL TSH 0.500 (0.465-4.680) mIU/L Urine Color Urine Appearance (Clear) Urine pH (5.0-8.0) Ur Specific [place] (1.001-1.035) Urine Protein (Negative) Urine Glucose (UA) (Negative) Urine Ketones (Negative) Urine Blood (Negative) Urine Nitrite (Negative) Urine Bilirubin (Negative) Urine Urobilinogen (<2.0) mg/dL Ur Leukocyte Esterase (Negative) - EKG Data -: EKG Interpreted by Fl EKG shows normal: sinus rhythm, axis (left axis deviation), intervals (normal) Rate: normal (rate 88 bpm) Interpretation: nonspecific ST-T wave changes, LVH (vital did criteria) Disposition Clinical Impression: Fall, Facial laceration, Generalized weakness Disposition: ADMITTED IP TO THIS [facility] Condition: Fair
[2019-12-17 03:00] LABS: Albumin 3.1 g/dL (3.5-5.0); Calcium 8.5 mg/dL (8.4-10.2); Magnesium 1.9 mg/dL (1.6-2.3); Potassium 4.6 mmol/L (3.5-5.1); Total Bilirubin 0.7 mg/dL (0.2-1.3); Total Protein 5.7 g/dL (6.3-8.2)
[2019-12-17 03:06] LABS: INR 1.1 (<1.2); Partial Thromboplastin Time 23.8 sec (22.0-30.0); Prothrombin Time 10.9 sec (9.0-12.0)
[2019-12-17 03:17] LABS: Basophils % (A) 0 %; Eosinophils # (A) 0.2 k/uL (0-0.7); Eosinophils % (A) 3 %; HGB 15.5 gm/dL (13.0-17.5); Lymphocytes # (A) 0.3 k/uL (1.0-4.8); Lymphocytes % (A) 4 %; MCH 29.7 pg (25.0-35.0); MCHC 31.7 g/dL (31.0-37.0); MCV 93.8 fL (80.0-100.0); Mean Platelet Volume 9.8; Monocytes # (A) 0.7 k/uL (0-1.0); Monocytes % (A) 9 %; Neutrophils # (A) 6.1 k/uL (1.3-7.7); Neutrophils % (A) 83 %; RBC 5.22 m/uL (4.30-5.90); WBC 7.3 k/uL (3.8-10.6)
--- NOTE | 2019-12-17 03:17 | CT ---
EXAM: CT Head Without Intravenous Contrast CLINICAL HISTORY: ITS.REASON CT Reason: fall injury TECHNIQUE: Axial computed tomography images of the head/brain without intravenous contrast. CTDI is 45.285 mGy and DLP is 1008.5 mGy-cm. This CT exam was performed using one or more of the following dose reduction techniques: automated exposure control, adjustment of the mA and/or kV according to patient size, and/or use of iterative reconstruction technique. COMPARISON: No relevant prior studies available. FINDINGS: Brain: No acute infarct, hemorrhage, mass or edema. Chronic small vessel ischemic disease and senescent changes. Ventricles: Unremarkable. No ventriculomegaly. Bones/joints: No acute calvarial abnormality. Post surgical changes within the right temporal calvarium and mastoid air cells. Soft tissues: Unremarkable. Sinuses: Unremarkable as visualized. Mastoid air cells: Partial opacification right mastoid air cells. IMPRESSION: No acute findings in the head/brain. EXAM: CT Cervical Spine Without Intravenous Contrast CLINICAL HISTORY: ITS.REASON CT Reason: fall injury TECHNIQUE: Axial computed tomography images of the cervical spine without intravenous contrast. CTDI is 11.185 mGy and DLP is 329.9 mGy-cm. This CT exam was performed using one or more of the following dose reduction techniques: automated exposure control, adjustment of the mA and/or kV according to patient size, and/or use of iterative reconstruction technique. COMPARISON: No relevant prior studies available. FINDINGS: Vertebrae: No acute fracture or traumatic malalignment Discs/spinal canal/neural foramina: Multilevel degenerative changes. Soft tissues: Unremarkable. Lung apices: Centrilobular emphysema. IMPRESSION: No acute findings in the cervical spine.
--- NOTE | 2019-12-17 03:19 | XR ---
EXAM: XR Chest, 1 View CLINICAL HISTORY: Fall TECHNIQUE: Frontal view of the chest. COMPARISON: Chest x-ray dated 10/14/2017 FINDINGS: Lungs: Diffuse airspace opacities which may represent an infectious process. Pleural space: Unremarkable. Heart: Unremarkable. Mediastinum: Moderate sized hiatal hernia. Bones/joints: Unremarkable. IMPRESSION: 1. Diffuse airspace opacities which may represent an infectious process. 2. Moderate sized hiatal hernia.
[2019-12-17 03:46] LABS: Platelet Count 72 k/uL (150-450)
[2019-12-17] MEDS ORDERED: SODIUM CHLORIDE 0.9% 500 ML 500 ML IV STA (04:09)
[2019-12-17] MEDS ORDERED: NALOXONE 0.4 MG/ML 1 ML VIAL IV PRN (04:13)
[2019-12-17] MEDS ORDERED: ACETAMINOPHEN TAB 325 MG TAB PO PRN (04:13)
[2019-12-17] MEDS: SODIUM CHLORIDE 0.9% 1,000 ML IV SCH ×2 (05:30→19:12)
[2019-12-17] MEDS ORDERED: predniSONE 20 MG TAB PO SCH (12:00)
[2019-12-17 14:06] LABS: Appearance,Urine Clear (Clear); Bilirubin,Urine Negative (Negative); Blood,Urine Negative (Negative); Color,Urine Yellow; Glucose,Urine (UA) Negative (Negative); Ketones,Urine Negative (Negative); Leukocyte Esterase,Urine Negative (Negative); Nitrite,Urine Negative (Negative); Protein,Urine Trace (Negative); Specific Gravity,Urine 1.019 (1.001-1.035); Urobilinogen,Urine <2.0 mg/dL (<2.0)
--- NOTE | 2019-12-17 17:54 | P.HPIM ---
History of Present Illness 79-year-old pleasant male came in after a fall. Patient states he has issues with his stabilitysince his surgery in the in inner ear. Patient has a big hematoma around the right eye.chest x-ray did show diffuse a states he did kory use of which Will obtainCorbett 19 test. Patient also comparing of cough without any significant sputum production is still have concern of lobar pneumonia after looking at the chest x-ray patient has a right middle lobe infiltrate which was significant a lipid the chest x-ray did order protocol to 20 level. Patient is bit hyponatremic as well as mild acute renal failure for which patient was started on IV fluids. 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 HEENT: No recent visual problems or hearing problems. Denied any sore throat. CARDIOVASCULAR: No chest pain, orthopnea, PND, no palpitations, no syncope. PULMONARY: No shortness of breath, no cough, no hemoptysis. GASTROINTESTINAL: No diarrhea, no nausea, no vomiting, no abdominal pain. NEUROLOGICAL: No headaches, no weakness, no numbness. HEMATOLOGICAL: Denies any bleeding or petechiae. GENITOURINARY: Denies any burning micturition, frequency, or urgency. MUSCULOSKELETAL/RHEUMATOLOGICAL: Denies any joint pain, swelling, or any muscle pain. ENDOCRINE: Denies any polyuria or polydipsia. The rest of the 14-point review of systems is negative. 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 Was in the [employer], stationed in the [employer] [facility]. Tobacco smoker but stopped many years ago denies current alcohol use. No international travel. Pet dog at home Smoking Status: Former smoker Past Alcohol Use History: None Reported, Abuse Additional Past Alcohol Use History / Comment(s): Pt started smoking in 1968 and quit in 1980. Pt has hx of alcohol addiction and quit 40 yrs ago. Past Drug Use History: None Reported Additional Drug Use History / Comment(s): Pt states he has some drug use 40 yrs ago. - Past Family History Father Family Medical History: CVA/TIA Sister(s) Family Medical History: Diabetes Mellitus Mother Family Medical History: No Reported History Additional Family Medical History / Comment(s): Mother was healthy and lived to be 95 yrs old. Medications and Allergies Home Medications Medication Instructions Recorded Confirmed Type Amoxicillin/Potassium Clav 1 tab PO BID 01/04/15 12/17/19 History [Augmentin 875-125 Tablet] Ciprofloxacin HCl [Cipro] 500 mg PO BID 01/04/15 12/17/19 History Levothyroxine Sodium [Synthroid] 150 mcg PO DAILY 01/04/15 12/17/19 History Tiotropium [place] [Spiriva 1 puff INHALATION RT-DAILY 06/27/17 12/17/19 History Respimat] predniSONE [Deltasone] 20 mg PO Q48H 06/27/17 12/17/19 History Atorvastatin [Lipitor] 20 mg PO HS 10/13/18 12/17/19 History amLODIPine [Norvasc] 5 mg PO DAILY 10/13/18 12/17/19 History traZODone HCL [Desyrel] 100 mg PO HS 10/13/18 12/17/19 History Calcium Carbonate [Calcium] 600 mg PO DAILY 12/17/19 12/17/19 History Carvedilol [Coreg] 12.5 mg PO BID 12/17/19 12/17/19 History Cholecalciferol [Vitamin D3 (25 2,000 unit PO DAILY 12/17/19 12/17/19 History Mcg = 1000 Iu)] Fexofenadine HCl [Aura Allergy] 180 mg PO DAILY 12/17/19 12/17/19 History Allergies Allergy/AdvReac Type Severity Reaction Status Date / Time DILLON Inhibitors Allergy Swelling Verified 12/17/19 07:58 Physical Exam Vitals: Vital Signs Temp Pulse Pulse Resp BP BP BP 12/17/19 15:00 98.5 F 76 18 123/69 12/17/19 10:19 97.5 F L 12/17/19 08:00 81 16 12/17/19 06:40 100.0 F H 81 16 108/60 12/17/19 05:32 98.8 F 78 16 139/68 12/17/19 03:59 81 18 132/70 12/17/19 01:42 98.9 F 92 18 122/76 Pulse Ox 12/17/19 15:00 91 L 12/17/19 10:19 12/17/19 08:00 12/17/19 06:40 95 12/17/19 05:32 93 L 12/17/19 03:59 92 L 12/17/19 01:42 94 L Intake and Output 12/17/19 12/17/19 12/17/19 06:59 14:59 22:59 Other: Voiding Method Urinal Urinal # Voids 1 2 Weight 75.296 kg PHYSICAL EXAMINATION: GENERAL: The patient is alert and oriented x3, not in any acute distress. Well developed, well nourished. HEENT: Pupils are round and equally reacting to light. EOMI. No scleral icterus. No conjunctival pallor. Normocephalic, patient has a big hematoma around the right eye. No pharyngeal erythema. No thyromegaly. CARDIOVASCULAR: S1 and S2 present. No murmurs, rubs, or gallops. PULMONARY: Chest is clear to auscultation, no wheezing or crackles. ABDOMEN: Soft, nontender, nondistended, normoactive bowel sounds. No palpable organomegaly. MUSCULOSKELETAL: No joint swelling or deformity. EXTREMITIES: No cyanosis, clubbing, or pedal edema. NEUROLOGICAL: Gross neurological examination did not reveal any focal deficits. SKIN: No rashes. Results CBC & Chem 7: 12/17/19 02:33 12/17/19 02:33 Labs: Abnormal Lab Results - Last 24 Hours (Table) 12/17/19 12/17/19 12/17/19 Range/Units 02:33 02:33 02:33 Plt Count 72 L (150-450) k/uL Lymphocytes # 0.3 L (1.0-4.8) k/uL Sodium 134 L (137-145) mmol/L BUN 25 H (9-20) mg/dL Glucose 102 H (74-99) mg/dL Total Protein 5.7 L (6.3-8.2) g/dL Albumin 3.1 L (3.5-5.0) g/dL Urine Protein Trace H (Negative) Thrombosis Risk Factor Assmnt - Choose All That Apply Each Risk Factor Represents 3 Points: Age 75 years or older Thrombosis Risk Factor Assessment Total Risk Factor Score: 3 Thrombosis Risk Factor Assessment Level: Moderate Risk Assessment and Plan Plan: -fall possibly secondary to chronic Gait instability: Physical therapyand occu pational therapy were consulted for further evaluation regarding this. -systemic inflammatory response syndrome considering the chest x-ray findings patient will be treated for pneumonia community-acquired with Rocephin patient is already on Cipro at home. We will also obtain a repeat chest x-ray tomorrow, patient will be ruled out for OB and 19. -Acute renal failure we'll azotemia secondary to intravascular volume depletion will continue with IV fluids. 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 -Hypothyroidism -DVT prophylaxis early ablation patient has a history of ITP
[2019-12-17] MEDS: carvediloL 12.5 MG TAB PO SCH (19:12)
[2019-12-17] MEDS: FAMOTIDINE 20 MG TAB PO SCH (20:21)
[2019-12-17] MEDS ORDERED: ATORVASTATIN 20 MG TAB PO SCH (21:00)
[2019-12-17] MEDS ORDERED: AMOXIC-POT CLAV 875-125MG 1 EACH TAB PO SCH (21:00)
[2019-12-17] MEDS ORDERED: traZODone HCL 100 MG TAB PO SCH (21:00)
[2019-12-17] MEDS ORDERED: CIPROFLOXACIN HCL 500 MG TAB PO SCH (21:00)
[2019-12-17 22:13] LABS: Appearance,Urine Clear (Clear); Bilirubin,Urine Negative (Negative); Blood,Urine Negative (Negative); Color,Urine Yellow; Glucose,Urine (UA) Negative (Negative); Ketones,Urine Negative (Negative); Leukocyte Esterase,Urine Negative (Negative); Nitrite,Urine Negative (Negative); Protein,Urine Negative (Negative); Specific Gravity,Urine 1.015 (1.001-1.035); Urobilinogen,Urine <2.0 mg/dL (<2.0)
[2019-12-18 02:16] VITALS: TEMP 97.5
[2019-12-18] MEDS: SODIUM CHLORIDE 0.9% 1,000 ML IV SCH (05:37)
[2019-12-18] MEDS ORDERED: LEVOTHYROXINE 75 MCG TAB PO SCH (06:30)
[2019-12-18] MEDS ORDERED: TIOTROPIUM 18 MCG/PUFF INHALER INHALATION SCH (08:00)
[2019-12-18] MEDS ORDERED: IPRATROPIUM 0.5 MG/2.5 ML NEBU INHALATION SCH (08:00)
[2019-12-18 08:29] VITALS: BP 143/67; PULSE 55; RESP 18
[2019-12-18] MEDS: FAMOTIDINE 20 MG TAB PO SCH (08:49)
[2019-12-18] MEDS: carvediloL 12.5 MG TAB PO SCH (08:49)
[2019-12-18] MEDS ORDERED: ENOXAPARIN 40 MG/0.4 ML SYRINGE SQ SCH (09:00)
[2019-12-18 09:22] LABS: African American GFR (CKD) 74.7 (60.0-200.0); Anion Gap 5.9 mmol/L (4.00-12.00); Calcium 7.8 mg/dL (8.7-10.3); Carbon Dioxide 26.1 mmol/L (21.6-31.8); Non-African American GFR(CKD) 64.4 (60.0-200.0); Potassium 4.2 mmol/L (3.5-5.5)
--- NOTE | 2019-12-18 09:23 | XR ---
EXAMINATION TYPE: XR chest 1V DATE OF EXAM: 12/18/2019 HISTORY: Shortness of breath. COMPARISON: 12/17/2019 TECHNIQUE: Single view of the chest is submitted. FINDINGS: Demonstrated are scattered senescent parenchymal change. Coarse interstitial infiltrates persist within the periphery of both lung mario. The heart is stable. Hilar and mediastinal structures are within normal limits. Degenerative changes are seen of the dorsal spine. IMPRESSION: 1. Coarse interstitial infiltrates persist within the periphery of both lung mario.
[2019-12-18] MEDS ORDERED: INFLUENZA VACCINE (6 MOS+) 60 MCG/0.5 ML SYRINGE IM ONE (12:14)
--- NOTE | 2019-12-18 13:12 | P.DS ---
Providers Date of admission: 12/17/19 04:13 Attending physician: Sonny Godoy Primary care physician: Dorita Mackey [facility] Course: 79-year-old pleasant male came in after a fall. Patient states he has issues with his stabilitysince his surgery in the in inner ear. Patient has a big hematoma around the right eye.chest x-ray did show diffuse a states he did because of which Will obtainCorbett 19 test. Patient also comparing of cough without any significant sputum production is still have concern of lobar pneumonia after looking at the chest x-ray patient has a right middle lobe infiltrate which was significant a lipid the chest x-ray did order protocol to 20 level. Patient is bit hyponatremic as well as mild acute renal failure for which patient was started on IV fluids. 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 12/18/2019 patient's Covid 19 is not resulted yet. Patient has minimal elevation in for calcitonin. Patient's dehydration improved repeat chest x-ray is not convincing for pneumonia it did show some coarse interstitial infiltrates which is probably secondary to pulmonary fibrosis which he has history of. Because of this other antibiotics were discontinued and patient is already on Augmentin and ciprofloxacin on long-term basis which will be continued. Benefit of this long- term antibiotics is not clear. Patient's hyponatremia and acute renal failure improved if patient is strong enough and if her patient oxygen requirements doesn't go up than his baseline patient will be discharged today patient had only 1 episode of low-grade fever which resolved at this time. PHYSICAL EXAMINATION: GENERAL: The patient is alert and oriented x3, not in any acute distress. Well developed, well nourished. HEENT: Pupils are round and equally reacting to light. EOMI. No scleral icterus. No conjunctival pallor. Normocephalic, patient has a big hematoma around the right eye. No pharyngeal erythema. No thyromegaly. CARDIOVASCULAR: S1 and S2 present. No murmurs, rubs, or gallops. PULMONARY: Chest is clear to auscultation, no wheezing or crackles. ABDOMEN: Soft, nontender, nondistended, normoactive bowel sounds. No palpable organomegaly. MUSCULOSKELETAL: No joint swelling or deformity. EXTREMITIES: No cyanosis, clubbing, or pedal edema. NEUROLOGICAL: Gross neurological examination did not reveal any focal deficits. SKIN: No rashes. Assessment and Plan Plan: -fall possibly secondary to chronic Gait instability and dehydration, dehydration improved patient most probably will be discharged today as mentioned above -low-grade fever without any clear evidence of any other sepsis. 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 -Hypothyroidism history of ITP Plan - Discharge Summary New Discharge Prescriptions: Continue Levothyroxine Sodium [Synthroid] 150 mcg PO DAILY Amoxicillin/Potassium Clav [Augmentin 875-125 Tablet] 1 tab PO BID predniSONE [Deltasone] 20 mg PO Q48H Tiotropium [place] [Spiriva Respimat] 1 puff INHALATION RT-DAILY amLODIPine [Norvasc] 5 mg PO DAILY Atorvastatin [Lipitor] 20 mg PO HS traZODone HCL [Desyrel] 100 mg PO HS Fexofenadine HCl [Aura Allergy] 180 mg PO DAILY Calcium Carbonate [Calcium] 600 mg PO DAILY Cholecalciferol [Vitamin D3 (25 Mcg = 1000 Iu)] 2,000 unit PO DAILY Ciprofloxacin HCl [Cipro] 500 mg PO BID #0 Changed Carvedilol [Coreg] 6.25 mg PO BID #0 Discharge Medication List Amoxicillin/Potassium Clav [Augmentin 875-125 Tablet] 1 tab PO BID 01/04/15 [History] Levothyroxine Sodium [Synthroid] 150 mcg PO DAILY 01/04/15 [History] Tiotropium [place] [Spiriva Respimat] 1 puff INHALATION RT-DAILY 06/27/17 [History] predniSONE [Deltasone] 20 mg PO Q48H 06/27/17 [History] Atorvastatin [Lipitor] 20 mg PO HS 10/13/18 [History] amLODIPine [Norvasc] 5 mg PO DAILY 10/13/18 [History] traZODone HCL [Desyrel] 100 mg PO HS 10/13/18 [History] Calcium Carbonate [Calcium] 600 mg PO DAILY 12/17/19 [History] Cholecalciferol [Vitamin D3 (25 Mcg = 1000 Iu)] 2,000 unit PO DAILY 12/17/19 [History] Fexofenadine HCl [Aura Allergy] 180 mg PO DAILY 12/17/19 [History] Carvedilol [Coreg] 6.25 mg PO BID #0 12/18/19 [Rx] Ciprofloxacin HCl [Cipro] 500 mg PO BID #0 12/18/19 [Rx] Follow up Appointment(s)/Referral(s): Dorita Mackey MD [Primary Care Provider] - 3 Days Patient Instructions/Handouts: Flu Vaccine in Adults (GEN) Discharge Disposition: HOME SELF-CARE
== END 2019-12-18 14:22 | disposition home or self-care (01) ==
LOC: EC 01:40 → 4SSUR 04:13
PROVIDERS: ADMIT Hospitalist; ATTEND Hospitalist
DX: J18.9 Pneumonia, unspecified organism (principal); E86.0 Dehydration; E87.1 Hypo-osmolality and hyponatremia; E87.70 Fluid overload, unspecified; N17.9 Acute kidney failure, unspecified; J44.0 Chronic obstructive pulmonary disease with (acute) lower respiratory infection; I10 Essential (primary) hypertension; S01.81XA Laceration without foreign body of other part of head, initial encounter; W18.30XA Fall on same level, unspecified, initial encounter; Z20.828 Contact with and (suspected) exposure to other viral communicable diseases; Z23 Encounter for immunization; I25.10 Atherosclerotic heart disease of native coronary artery without angina pectoris; I27.20 Pulmonary hypertension, unspecified; E03.9 Hypothyroidism, unspecified; E78.5 Hyperlipidemia, unspecified; I42.8 Other cardiomyopathies; H91.90 Unspecified hearing loss, unspecified ear; J84.10 Pulmonary fibrosis, unspecified; K21.9 Gastro-esophageal reflux disease without esophagitis; Y92.009 Unspecified place in unspecified non-institutional (private) residence as the place of occurrence of the external cause; Z79.890 Hormone replacement therapy; Z79.899 Other long term (current) drug therapy; Z83.3 Family history of diabetes mellitus; Z86.2 Personal history of diseases of the blood and blood-forming organs and certain disorders involving the immune mechanism; Z86.73 Personal history of transient ischemic attack (TIA), and cerebral infarction without residual deficits; Z86.79 Personal history of other diseases of the circulatory system; Z87.891 Personal history of nicotine dependence
CPT/HCPCS: 96361 ×3; 96365; 96366; 96372; 99285; 36415; 94640; 93005; 80053; 80048; 83605; 83735; 84443; 84484; 85025; 85610; 85730; 81003; 87040; 84145; 71045 ×2; 72125; 70450; 90686; G0378 ×2; U0003; G0008; J0696 ×2; J1650; J7512